=== PATIENT | male | born 1940 | race Caucasian/White ===

== ENCOUNTER 2020-03-12 08:00 | Outpatient (CLI) | payer MEDICARE, OTHER ==
[2020-03-12 18:41] LABS: BASOPHILS # (AUTO) 0.1 10^3/uL (0.0-0.1); BASOPHILS % (AUTO) 1.1 %; EOSINOPHILS # (AUTO) 0.2 10^3/uL (0.0-0.7); EOSINOPHILS % (AUTO) 3.1 %; HGB - HEMOGLOBIN 14.4 g/dL (14.0-18.0); LYMPHOCYTES # (AUTO) 1.2 10^3/uL (1.5-3.5); LYMPHOCYTES % (AUTO) 22.4 %; MEAN CORPUSCULAR HEMOGLOBIN 31.6 pg (27.0-31.0); MEAN CORPUSCULAR HGB CONC 32.4 g/dL (32.0-36.0); MEAN CORPUSCULAR VOLUME 97.8 fL (80.0-94.0); MEAN PLATELET VOLUME 9.7 fL (7.4-11.4); MONOCYTES # (AUTO) 0.4 10^3/uL (0.0-1.0); MONOCYTES % (AUTO) 6.9 %; NEUTROPHILS # (AUTO) 3.5 10^3/uL (1.5-6.6); NEUTROPHILS % (AUTO) 66.3 %; PLT - PLATELET COUNT 247 10^3/uL (130-450); RED BLOOD COUNT 4.55 10^6/uL (4.70-6.10); RED CELL DISTRIBUTION WIDTH 13.2 % (12.0-15.0); WHITE BLOOD COUNT 5.2 x10^3/uL (4.8-10.8)
[2020-03-12 18:55] LABS: ALBUMIN 4.2 g/dL (3.2-5.5); ALBUMIN/GLOBULIN RATIO 1.4 (1.0-2.2); ALKALINE PHOSPHATASE 59 IU/L (42-121); ALT ALANINE AMINOTRANSFERASE 19 IU/L (10-60); AST ASPARTATE AMINOTRANSFERASE 20 IU/L (10-42); BILIRUBIN,TOTAL 1.1 mg/dL (0.2-1.0); BUN - BLOOD UREA NITROGEN 23 mg/dL (6-20); CALCIUM 8.7 mg/dL (8.5-10.3); CARBON DIOXIDE - CO2 30 mmol/L (21-32); CHLORIDE 103 mmol/L (101-111); CHOL/HDL RATIO 3.9 (<5.0); CHOLESTEROL 178 mg/dL; CREATININE 0.9 mg/dL (0.6-1.2); GLUCOSE 98 mg/dL (70-100); HDL CHOLESTEROL 46 mg/dL; LDL CHOLESTEROL,CALCULATED 113 mg/dL; LDL/HDL RATIO 2.5 (<3.6); SODIUM 140 mmol/L (135-145); TOTAL PROTEIN 7.1 g/dL (6.7-8.2); VLDL CHOLESTEROL 19 mg/dL
== END 2020-03-12 23:59 | disposition home or self-care (01) ==
LOC: LAB.WCP 08:00
PROVIDERS: ATTEND Family Medicine
DX: Z00.00 Encounter for general adult medical examination without abnormal findings (principal); E78.5 Hyperlipidemia, unspecified
CPT/HCPCS: 36415; 80053; 80061; 83721; 84443; 85025

== ENCOUNTER 2021-08-28 18:07 | Outpatient (CLI) | payer MEDICARE, OTHER ==
--- NOTE | 2021-08-28 20:43 | XRAY Report ---
PROCEDURE: Chest 2 View X-Ray INDICATIONS: COUGH TECHNIQUE: 2 view(s) of the chest. COMPARISON: None. FINDINGS: Surgical changes and devices: None. Lungs and pleura: No pleural effusions or pneumothorax. Lungs are clear. Mediastinum: Mediastinal contours are normal. Heart size is normal. Bones and chest wall: No suspicious bony abnormalities. Soft tissues appear unremarkable. IMPRESSION: No acute cardiopulmonary process demonstrated radiographically. Reviewed by: Marc Benson MD on 08/28/2021 8:41 PM [facility] Approved by: Marc Benson MD on 08/28/2021 8:41 PM [facility] Station ID: [id number]
== END 2021-08-28 23:59 | disposition home or self-care (01) ==
LOC: DI.N 18:07
PROVIDERS: ATTEND Family Medicine
DX: R05.9 Cough, unspecified (principal)

== ENCOUNTER 2021-09-15 10:23 | Outpatient (CLI) | payer MEDICARE, OTHER ==
[2021-09-15 17:59] LABS: BASOPHILS % (AUTO) 0.5 %; EOSINOPHILS # (AUTO) 0.3 10^3/uL (0.0-0.7); EOSINOPHILS % (AUTO) 5.8 %; HCT - HEMATOCRIT 43.5 % (42.0-52.0); HGB - HEMOGLOBIN 14.8 g/dL (14.0-18.0); LYMPHOCYTES # (AUTO) 1.2 10^3/uL (1.5-3.5); LYMPHOCYTES % (AUTO) 22.3 %; MEAN CORPUSCULAR HEMOGLOBIN 32.5 pg (27.0-31.0); MEAN CORPUSCULAR VOLUME 95.6 fL (80.0-94.0); MEAN PLATELET VOLUME 9.7 fL (7.4-11.4); MONOCYTES # (AUTO) 0.4 10^3/uL (0.0-1.0); MONOCYTES % (AUTO) 6.9 %; NEUTROPHILS # (AUTO) 3.6 10^3/uL (1.5-6.6); NEUTROPHILS % (AUTO) 64.3 %; PLT - PLATELET COUNT 241 10^3/uL (130-450); RED BLOOD COUNT 4.55 10^6/uL (4.70-6.10); RED CELL DISTRIBUTION WIDTH 13.2 % (12.0-15.0); WHITE BLOOD COUNT 5.5 x10^3/uL (4.8-10.8)
[2021-09-15 18:51] LABS: THYROID STIMULATING HORMONE 7.85 uIU/mL (0.34-5.60)
[2021-09-15 18:57] LABS: PROLACTIN 11.25 ng/mL
[2021-09-15 18:59] LABS: ALBUMIN 4.5 g/dL (3.2-5.5); ALBUMIN/GLOBULIN RATIO 1.3 (1.0-2.2); ALKALINE PHOSPHATASE 55 IU/L (42-121); ALT ALANINE AMINOTRANSFERASE 22 IU/L (10-60); AST ASPARTATE AMINOTRANSFERASE 23 IU/L (10-42); BILIRUBIN,TOTAL 0.9 mg/dL (0.2-1.0); BUN - BLOOD UREA NITROGEN 20 mg/dL (6-20); CARBON DIOXIDE - CO2 28 mmol/L (21-32); CHLORIDE 102 mmol/L (101-111); CHOL/HDL RATIO 3.2 (<5.0); CHOLESTEROL 178 mg/dL; CREATININE 0.9 mg/dL (0.6-1.2); GFR - MDRD 81 (>89); GLUCOSE 93 mg/dL (70-100); HDL CHOLESTEROL 55 mg/dL; LDL CHOLESTEROL,CALCULATED 108 mg/dL; POTASSIUM 3.9 mmol/L (3.5-5.0); SODIUM 140 mmol/L (135-145); TRIGLYCERIDES 73 mg/dL; VLDL CHOLESTEROL 15 mg/dL
[2021-09-15 19:33] LABS: FREE T4 (FREE THYROXINE) 0.73 ng/dL (0.58-1.64)
== END 2021-09-15 23:59 | disposition home or self-care (01) ==
LOC: LAB.WCP 10:23
PROVIDERS: ATTEND Family Medicine
DX: Z00.00 Encounter for general adult medical examination without abnormal findings (principal); E78.5 Hyperlipidemia, unspecified; N62 Hypertrophy of breast
CPT/HCPCS: 36415; 80053; 80061; 83721; 84146; 84153; 84439; 84443; 85025

== ENCOUNTER 2021-09-21 08:00 | Outpatient (CLI) | payer MEDICARE, OTHER ==
[2021-09-21 21:18] LABS: FREE T3 3.48 pg/mL (2.5-3.9)
[2021-09-21 21:19] LABS: THYROID STIMULATING HORMONE 3.81 uIU/mL (0.34-5.60)
[2021-09-21 21:23] LABS: FREE T4 (FREE THYROXINE) 0.73 ng/dL (0.58-1.64)
== END 2021-09-21 23:59 ==
LOC: LAB.WCP 08:00
PROVIDERS: ATTEND Family Medicine
DX: E03.9 Hypothyroidism, unspecified (principal)
CPT/HCPCS: 36415; 84439; 84443; 84481

== ENCOUNTER 2022-03-14 16:17 | Outpatient (CLI) | payer MEDICARE, OTHER ==
--- NOTE | 2022-03-14 17:54 | XRAY Report ---
PROCEDURE: Knee 3 View RT INDICATIONS: RIGHT KNEE PAIN. TECHNIQUE: 3 views of the right knee(s) were acquired. COMPARISON: None. FINDINGS: There is no acute fracture. Alignment is normal. Joint spacing is maintained. Very mild tricompartmen t degenerative spurring. Small joint effusion. There is superior and inferior patellar enthesophytes. Additional corticated calcification along the inferior aspect of the patella may represent remote av ulsion fracture versus fragmented enthesophyte. Mild vascular calcifications. IMPRESSION: Findings suggestive of patellar tendinosis. Recommend clinical correlation. Small joint effusion. Mild tricompartment osteoarthritis. Superior and inferior patellar enthesophytes. Additional corticated calcification along the inferior pole of the patella may represent remote avulsion fracture versus fragmented enthesophyte. Reviewed by: Travon Covarrubias DO on 03/14/2022 4:52 PM [facility] Approved by: Travon Covarrubias DO on 03/14/2022 4:52 PM [facility] Station ID: [id number]
== END 2022-03-14 16:18 | disposition home or self-care (01) ==
LOC: DI 16:17
PROVIDERS: ATTEND Physician Assistant
DX: M17.11 Unilateral primary osteoarthritis, right knee (principal); M25.461 Effusion, right knee; M77.9 Enthesopathy, unspecified

== ENCOUNTER 2022-03-30 09:58 | Outpatient (CLI) | payer MEDICARE, OTHER ==
--- NOTE | 2022-03-30 15:21 | MRI Report ---
PROCEDURE: Knee RT W/O INDICATIONS: RIGHT KNEE PAIN TECHNIQUE: Noncontrast sagittal PD fast spin echo and T2 fast spin echo with fat saturation, sagittal 3-D spoile d GE with fat saturation; coronal T1 spin echo and PD fast spin echo with fat saturation, and axial P D fast spin echo with fat saturation through the knee. COMPARISON: Right knee radiographs 03/14/2022. FINDINGS: Image quality: Excellent. Anterior cruciate ligament: Intact. Posterior cruciate ligament: Intact. Medial collateral ligament: Focal fluid signal intensity and irregularity of the proximal to mid medi al collateral ligament is seen with surrounding soft tissue edema, consistent with a grade 2 sprain. Lateral collateral ligament: Intact. Medial meniscus: Irregularity of the inferior to the posterior horn of the medial meniscus most like ly represents shallow radial tearing. There may be a focal flap tear at the junction of the anterior horn and body of the medial meniscus extending to the medial femoral gutter. Lateral meniscus: Intrasubstance signal is seen in the body of the lateral meniscus without definite extension to articular surface, consistent with intrasubstance degeneration. Medial and lateral tendons: The semimembranosus tendon insertions appear intact. Visualized portion s of the pes anserinus tendons appear normal. The popliteus tendon appears intact. Iliotibial band appears normal. Anterior structures: A small enthesophyte is seen at the distal quadriceps tendon insertion. There is also enthesophyte formation at the inferior patella that is mildly edematous with tendinosis of the proximal patellar tendon. No evidence of subluxation. No femoral trochlear dysplasia or ventral troch lear prominence. No edema in the infrapatellar fat pad. Bones: No acute trabecular bone injury or fracture. Medial femorotibial cartilage: Mild to moderate partial-thickness cartilage thinning and irregularit y is seen in the weightbearing portion of the medial femorotibial compartment. Lateral femorotibial cartilage: There is full-thickness cartilage fissuring in the lateral tibial pl ateau with possible subchondral osteophyte formation. Patellofemoral cartilage: Full-thickness cartilage loss is seen at the median ridge of the patella s uperiorly with mild subchondral edema. Soft tissues: There is a medium-sized joint effusion. There is a small medial popliteal cyst. A sma ll amount of fluid is seen at the proximal tibiofibular articulation. The musculature surrounding the knee is normal in bulk. IMPRESSION: 1.Grade 2 sprain of the proximal ligament medial collateral ligament. 2.Shallow radial tearing of the posterior horn of the medial meniscus. Suspected additional superiorl y displaced flap tear at the junction of the posterior horn and body of the medial meniscus extending to the medial femoral gutter. 3.Mild intrasubstance degeneration in the lateral meniscus without a discrete tear. 4.Full-thickness cartilage loss in the anterior compartment with subchondral edema. There is full-thi ckness cartilage fissuring in the lateral compartment and grade 2-3 chondral malacia in the medial co mpartment. 5.Moderate proximal patellar tendinosis. A mildly edematous enthesophyte is seen at the patellar tend on origin. 6.Moderate joint effusion. Small medial popliteal cyst Reviewed by: Tray Kowalski MD on 03/30/2022 3:20 PM PDT Approved by: Tray Kowalski MD on 03/30/2022 3:20 PM PDT Station ID: [id number]
== END 2022-03-30 09:59 | disposition home or self-care (01) ==
LOC: DI 09:58
PROVIDERS: ATTEND Registered Nurse
DX: S83.411A Sprain of medial collateral ligament of right knee, initial encounter (principal); S83.241A Other tear of medial meniscus, current injury, right knee, initial encounter; M23.361 Other meniscus derangements, other lateral meniscus, right knee; M94.261 Chondromalacia, right knee; M25.461 Effusion, right knee; M76.891 Other specified enthesopathies of right lower limb, excluding foot; R60.0 Localized edema

== ENCOUNTER 2022-08-24 16:16 | Outpatient (CLI) | payer MEDICARE, OTHER ==
--- NOTE | 2022-08-24 16:21 | XRAY Report ---
PROCEDURE: Knee 4 View RT INDICATIONS: RIGHT KNEE PAIN TECHNIQUE: 4 views of the right knee(s) were acquired. COMPARISON: None. FINDINGS: Moderate tricompartmental osteoarthritis characterized by joint space narrowing and small marginal os teophytes. No suspicious lytic or blastic osseous lesion. No acute finding. Small suprapatellar knee joint effusion. IMPRESSION: Moderate tricompartmental knee osteoarthritis. Reviewed by: Marc Benson MD on 08/24/2022 3:20 PM [place] Approved by: Marc Benson MD on 08/24/2022 3:20 PM [place] Station ID: [id number]
== END 2022-08-24 16:17 | disposition home or self-care (01) ==
LOC: DI.WOS 16:16
PROVIDERS: ATTEND Physician Assistant Surgical
DX: M17.11 Unilateral primary osteoarthritis, right knee (principal)

== ENCOUNTER 2023-05-06 08:00 | Outpatient (CLI) | payer MEDICARE, OTHER ==
[2023-05-06 18:06] LABS: CALCIUM 9.2 mg/dL (8.5-10.3); CREATININE 0.9 mg/dL (0.6-1.3); POTASSIUM 3.9 mmol/L (3.5-4.5)
== END 2023-05-06 23:59 | disposition home or self-care (01) ==
LOC: LAB.N 08:00
PROVIDERS: ATTEND Physician Assistant Medical
DX: U07.1 COVID-19 (principal)
CPT/HCPCS: 36415; 80048

== ENCOUNTER 2024-04-13 09:21 | Outpatient (CLI) | payer MEDICARE, OTHER | END 2024-04-13 23:59 | disposition critical access hospital (66) | LOC: EMS 09:21 | DX: R40.20 Unspecified coma (principal) | CPT/HCPCS: A0425; A0427 ==

== ENCOUNTER 2024-04-13 09:31 | Emergency (ER) | payer MEDICARE, OTHER ==
[2024-04-13] MEDS: SODIUM CHLORIDE 0.9% 1,000 ML IV STA (09:30)
[2024-04-13] MEDS ORDERED: PROPOFOL 1000 MG/100 ML 1,000 MG/100 ML BOTTLE IV ONE ×2 (09:35→22:18)
[2024-04-13] MEDS ORDERED: ETOMIDATE 40 MG/20 ML VIAL IVP ONE (09:40)
[2024-04-13] MEDS ORDERED: ROCURONIUM 50 MG/5 ML VIAL ONE (09:40)
[2024-04-13] MEDS: ETOMIDATE 40 MG/20 ML VIAL IVP STA (09:42)
[2024-04-13] MEDS: ROCURONIUM 50 MG/5 ML VIAL IVP STA (09:42)
[2024-04-13] MEDS: PROPOFOL 1000 MG/100 ML 1,000 MG/100 ML BOTTLE IV STA ×2 (09:46→22:25)
[2024-04-13 09:51] LABS: BASOPHILS % (AUTO) 0.5 %; EOSINOPHILS # (AUTO) 0.2 10^3/uL (0.0-0.7); EOSINOPHILS % (AUTO) 4.2 %; HCT - HEMATOCRIT 41.9 % (42.0-52.0); HGB - HEMOGLOBIN 13.9 g/dL (14.0-18.0); LYMPHOCYTES # (AUTO) 1.5 10^3/uL (1.5-3.5); LYMPHOCYTES % (AUTO) 27.6 %; MEAN CORPUSCULAR HEMOGLOBIN 31.5 pg (27.0-31.0); MEAN CORPUSCULAR HGB CONC 33.2 g/dL (32.0-36.0); MONOCYTES # (AUTO) 0.4 10^3/uL (0.0-1.0); MONOCYTES % (AUTO) 6.6 %; NEUTROPHILS # (AUTO) 3.3 10^3/uL (1.5-6.6); NEUTROPHILS % (AUTO) 60.9 %; PLT - PLATELET COUNT 208 10^3/uL (130-450); RED BLOOD COUNT 4.41 10^6/uL (4.70-6.10); RED CELL DISTRIBUTION WIDTH 13.1 % (12.0-15.0); WHITE BLOOD COUNT 5.5 x10^3/uL (4.8-10.8)
[2024-04-13 09:52] LABS: VBG BASE EXCESS -3.5 mmol/L (-2 - +2); VBG HCO3 22.9 mmol/L (23-28); VBG OXYGEN SATURATION 75.5 % (60-80); VBG PH 7.314 (7.31-7.41); VBG TOTAL CO2 24.3 mmol/L (24-29)
[2024-04-13 09:53] LABS: CARBOXYHEMOGLOBIN VENOUS 0.5 % (0-1.5); HEMOGLOBIN TOTAL, VENOUS WB 15.1 g/dL (12.0-18.0); METHEMOGLOBIN VENOUS 0.8 % (0-1.5)
[2024-04-13 10:02] LABS: INR 1.1 (0.8-1.2); PT - PROTHROMBIN TIME 12.1 secs (9.9-12.6)
--- NOTE | 2024-04-13 10:12 | ED Physician Documentation ---
History of Present Illness - Stated complaint Stated Complaint: ROSC - Chief complaint Chief Complaint: Cardiac - History obtained from History obtained from: EMS - Additonal information Additional information: This is a reportedly healthy 83-year-old gentleman who comes from home by EMS. Reportedly was out in the garage working with chemicals yesterday, were not sure what kind per se. It was noted that he had left leg weakness yesterday and this morning was slurring his speech. EMS was called out for strokelike symptoms and on arrival he became completely obtunded with a GCS of 3. They put in an IO and he briefly became responsive but confused. Then he became obtunded again. Narcan was trialed without effect. He was reportedly a difficult airway prehospital and comes in with a Koffi tube in place and an IO in the leg. is not present on initial arrival but I understand she is coming to the hospital from EMS. arrived and took an independent history from her at approximately 10:40 AM. She reports to me that he is generally very healthy. He was on statins for some time but has not been taking them for a few years. No major surgeries other than a rotator cuff issue in the past. He was working with [employer] and cutting things down in the basement yesterday. She noted he could not use his left leg last night but it was not painful. This morning he became progressively altered and then slumped down and 911 was called. She says he does not smoke at all and only occasionally drinks alcohol. Review of Systems Unable to obtain: Intubated PD PAST MEDICAL HISTORY - Past Medical History Past Medical History: No - Past Surgical History Past Surgical History: No - Present Medications Home Medications: Ambulatory Orders Medication Instructions Recorded Confirmed No Known Home Medications 04/13/24 04/13/24 - Allergies Allergies/Adverse Reactions: Allergies Allergy/AdvReac Type Severity Reaction Status Date / Time No Known Drug Allergies Allergy Verified 04/13/24 09:39 - Social History Does the pt smoke?: No Smoking Status: Never smoker Does the pt drink ETOH?: No Does the pt have substance abuse?: No - Immunizations Immunizations are current?: Yes - POLST Patient has POLST: No PD ED PE NORMAL - Vitals Vital signs reviewed: Yes - General General: Other (GCS 3 with [address] tube in place) - HEENT HEENT: Other (Small pupils) - Neck Neck: No bony TTP - Cardiac Cardiac: RRR, No murmur - Respiratory Respiratory: Other (Rhonchorous bilateral breath sounds with bagging) - Abdomen Abdomen: Non tender - Extremities Extremities: No edema - Neuro Eye Opening: None Motor: None Verbal: None GCS Score: 3 Results - Vitals Vitals: Vital Signs - 24 hr 04/13/24 04/13/24 04/13/24 09:30 09:34 09:35 Temperature 35.7 C L 35.7 C L Heart Rate 87 84 86 Respiratory 21 25 H 12 Rate Blood Pressure 159/93 H 159/93 H 161/94 H Blood Pressure [Right] O2 Saturation 100 100 100 If not protocol 15 15 : Oxygen Flow, liters/minute 04/13/24 04/13/24 04/13/24 09:40 09:45 09:50 Temperature Heart Rate 104 H 116 H 85 Respiratory 27 H 20 18 Rate Blood Pressure 162/93 H 205/140 H 149/81 H Blood Pressure [Right] O2 Saturation 100 100 100 If not protocol 15 15 : Oxygen Flow, liters/minute 04/13/24 04/13/24 04/13/24 09:55 09:58 10:00 Temperature Heart Rate 87 84 80 Respiratory 16 16 Rate Blood Pressure 141/84 H 140/81 H Blood Pressure [Right] O2 Saturation 100 100 If not protocol : Oxygen Flow, liters/minute 04/13/24 04/13/24 04/13/24 10:05 10:10 10:15 Temperature Heart Rate 84 80 83 Respiratory 19 18 19 Rate Blood Pressure 160/84 H 144/76 H 150/77 H Blood Pressure [Right] O2 Saturation 100 100 100 If not protocol : Oxygen Flow, liters/minute 04/13/24 04/13/24 04/13/24 10:20 10:25 10:30 Temperature Heart Rate 82 79 78 Respiratory 18 19 19 Rate Blood Pressure 148/79 H 144/75 H 146/83 H Blood Pressure [Right] O2 Saturation 100 100 100 If not protocol : Oxygen Flow, liters/minute 04/13/24 04/13/24 04/13/24 10:34 10:45 11:00 Temperature Heart Rate 88 71 87 Respiratory 18 23 Rate Blood Pressure 150/82 H 149/89 H Blood Pressure [Right] O2 Saturation 97 98 If not protocol : Oxygen Flow, liters/minute 04/13/24 04/13/24 04/13/24 11:15 11:22 11:30 Temperature Heart Rate 77 88 74 Respiratory 18 18 Rate Blood Pressure 141/70 H 145/75 H Blood Pressure 159/93 H [Right] O2 Saturation 98 98 If not protocol : Oxygen Flow, liters/minute 04/13/24 04/13/24 04/13/24 11:45 12:00 12:15 Temperature Heart Rate 75 76 73 Respiratory 19 19 19 Rate Blood Pressure 135/72 H 136/76 H 131/75 H Blood Pressure [Right] O2 Saturation 98 98 99 If not protocol : Oxygen Flow, liters/minute 04/13/24 04/13/24 04/13/24 12:30 12:45 13:00 Temperature 36 C L Heart Rate 64 66 54 L Respiratory 22 20 18 Rate Blood Pressure 152/72 H 125/63 109/60 Blood Pressure [Right] O2 Saturation 99 99 99 If not protocol : Oxygen Flow, liters/minute 04/13/24 04/13/24 04/13/24 13:15 13:26 13:30 Temperature 36.3 C L Heart Rate 81 54 L 68 Respiratory 17 22 Rate Blood Pressure 151/75 H 125/64 Blood Pressure [Right] O2 Saturation 100 100 If not protocol : Oxygen Flow, liters/minute 04/13/24 04/13/24 04/13/24 13:45 14:00 14:15 Temperature Heart Rate 67 65 66 Respiratory 17 17 18 Rate Blood Pressure 127/59 L 122/61 122/60 Blood Pressure [Right] O2 Saturation 100 100 98 If not protocol : Oxygen Flow, liters/minute 04/13/24 04/13/24 04/13/24 14:30 14:45 15:00 Temperature Heart Rate 65 61 63 Respiratory 18 20 19 Rate Blood Pressure 117/60 114/56 L 116/58 L Blood Pressure [Right] O2 Saturation 98 99 98 If not protocol : Oxygen Flow, liters/minute 04/13/24 04/13/24 15:15 15:30 Temperature Heart Rate 86 70 Respiratory 18 17 Rate Blood Pressure 132/63 H 120/53 L Blood Pressure [Right] O2 Saturation 100 98 If not protocol : Oxygen Flow, liters/minute Oxygen O2 Source Mechanical ventilator Oxygen Flow Rate 15 - EKG (time done) 1122 EKG releavant findings:: EKG personally interpreted by author of this note. Relevant findings are: Rate: Rate (enter#) (75) Rhythm: NSR [place]: Normal Intervals: Normal ND QRS: Normal Ischemia: Normal ST segments - Labs Labs: Laboratory Tests 04/13/24 04/13/24 04/13/24 09:45 09:45 09:45 WBC 5.5 RBC 4.41 L Hgb 13.9 L Hct 41.9 L MCV 95.0 H MCH 31.5 H MCHC 33.2 RDW 13.1 Plt Count 208 MPV 9.0 Neut # (Auto) 3.3 Lymph # (Auto) 1.5 Dale # (Auto) 0.4 Eos # (Auto) 0.2 Baso # (Auto) 0.0 Absolute Nucleated RBC 0.00 Nucleated RBC % 0.0 PT 12.1 INR 1.1 Bld Gas Analysis Time Sample Site ABG pH ABG pCO2 ABG pO2 ABG HCO3 ABG Total CO2 ABG O2 Saturation ABG Base Excess Romel Test VBG pH VBG pCO2 VBG pO2 VBG HCO3 VBG Total CO2 VBG O2 Saturation VBG Base Excess VBG Total Hgb VBG Oxyhemoglobin VBG Carboxyhemoglobin VBG Methemoglobin Respiration Rate O2 Delivery Device Vent Mode FiO2 Tidal Volume PEEP Sodium 140 Potassium 3.8 Chloride 108 Carbon Dioxide 27 Anion Gap 5.0 L BUN 16 Creatinine 0.9 Estimated GFR (MDRD) 81 L Glucose 124 H Lactic Acid Calcium 8.8 Magnesium 2.0 Total Bilirubin 0.6 AST 21 ALT 15 Alkaline Phosphatase 67 Total Creatine Kinase 112 Troponin I High Sens Total Protein 7.0 Albumin 4.3 Globulin 2.7 Albumin/Globulin Ratio 1.6 Urine Color Urine Clarity Urine pH Ur Specific [place] Urine Protein Urine Glucose (UA) Urine Ketones Urine Occult Blood Urine Nitrite Urine Bilirubin Urine Urobilinogen Ur Leukocyte Esterase Urine RBC Urine WBC Ur Squamous Epith Cells Urine Bacteria Ur Microscopic Review Urine Culture Comments Nasal Adenovirus (PCR) Nasal B. parapertussis DNA (PCR) Nasal Coronavir 229E PCR Nasal Coronavir HKU1 PCR Nasal Coronavir NL63 PCR Nasal Coronavir OC43 PCR Nasal Enterovir/Rhinovir PCR Nasal Influenza B PCR Nasal Influenza A PCR Nasal Parainfluen 1 PCR Nasal Parainfluen 2 PCR Nasal Parainfluen 3 PCR Nasal Parainfluen 4 PCR Nasal RSV (PCR) Nasal B.pertussis DNA PCR Nasal C.pneumoniae (PCR) [place] Human Metapneumo PCR Nasal M.pneumoniae (PCR) Nasal SARS-CoV-2 (PCR) Urine Opiates Screen Ur Buprenorphine Scrn Ur Oxycodone Screen Urine Methadone Screen Ur Barbiturates Screen Ur Tricyclics Screen Ur Phencyclidine Scrn Ur Amphetamine Screen U Methamphetamines Scrn U Benzodiazepines Scrn Urine Cocaine Screen U Cannabinoids Screen Ur Drug Screen Comment 04/13/24 04/13/24 04/13/24 09:45 09:45 09:45 WBC RBC Hgb Hct MCV MCH MCHC RDW Plt Count MPV Neut # (Auto) Lymph # (Auto) Dale # (Auto) Eos # (Auto) Baso # (Auto) Absolute Nucleated RBC Nucleated RBC % PT INR Bld Gas Analysis Time Sample Site ABG pH ABG pCO2 ABG pO2 ABG HCO3 ABG Total CO2 ABG O2 Saturation ABG Base Excess Romel Test VBG pH 7.314 VBG pCO2 46.0 VBG pO2 41.0 VBG HCO3 22.9 L VBG Total CO2 24.3 VBG O2 Saturation 75.5 VBG Base Excess -3.5 L VBG Total Hgb VBG Oxyhemoglobin VBG Carboxyhemoglobin VBG Methemoglobin Respiration Rate O2 Delivery Device Vent Mode FiO2 Tidal Volume PEEP Sodium Potassium Chloride Carbon Dioxide Anion Gap BUN Creatinine Estimated GFR (MDRD) Glucose Lactic Acid 1.1 Calcium Magnesium Total Bilirubin AST ALT Alkaline Phosphatase Total Creatine Kinase Troponin I High Sens 4.2 Total Protein Albumin Globulin Albumin/Globulin Ratio Urine Color Urine Clarity Urine pH Ur Specific [place] Urine Protein Urine Glucose (UA) Urine Ketones Urine Occult Blood Urine Nitrite Urine Bilirubin Urine Urobilinogen Ur Leukocyte Esterase Urine RBC Urine WBC Ur Squamous Epith Cells Urine Bacteria Ur Microscopic Review Urine Culture Comments Nasal Adenovirus (PCR) Nasal B. parapertussis DNA (PCR) Nasal Coronavir 229E PCR Nasal Coronavir HKU1 PCR Nasal Coronavir NL63 PCR Nasal Coronavir OC43 PCR Nasal Enterovir/Rhinovir PCR Nasal Influenza B PCR Nasal Influenza A PCR Nasal Parainfluen 1 PCR Nasal Parainfluen 2 PCR Nasal Parainfluen 3 PCR Nasal Parainfluen 4 PCR Nasal RSV (PCR) Nasal B.pertussis DNA PCR Nasal C.pneumoniae (PCR) [place] Human Metapneumo PCR Nasal M.pneumoniae (PCR) Nasal SARS-CoV-2 (PCR) Urine Opiates Screen Ur Buprenorphine Scrn Ur Oxycodone Screen Urine Methadone Screen Ur Barbiturates Screen Ur Tricyclics Screen Ur Phencyclidine Scrn Ur Amphetamine Screen U Methamphetamines Scrn U Benzodiazepines Scrn Urine Cocaine Screen U Cannabinoids Screen Ur Drug Screen Comment 04/13/24 04/13/24 04/13/24 09:45 10:20 10:21 WBC RBC Hgb Hct MCV MCH MCHC RDW Plt Count MPV Neut # (Auto) Lymph # (Auto) Dale # (Auto) Eos # (Auto) Baso # (Auto) Absolute Nucleated RBC Nucleated RBC % PT INR Bld Gas Analysis Time 1030 Sample Site RIGHT RADIAL ABG pH 7.38 ABG pCO2 36 ABG pO2 205 H* ABG HCO3 21.1 L ABG Total CO2 22.2 ABG O2 Saturation 99 H ABG Base Excess -3.4 L Romel Test POSITIVE VBG pH VBG pCO2 VBG pO2 VBG HCO3 VBG Total CO2 VBG O2 Saturation VBG Base Excess VBG Total Hgb 15.1 VBG Oxyhemoglobin 75 L VBG Carboxyhemoglobin 0.5 VBG Methemoglobin 0.8 Respiration Rate 16 O2 Delivery Device VENTILATOR Vent Mode ASSIST/CONTROL FiO2 80.00 Tidal Volume 400 PEEP 5 Sodium Potassium Chloride Carbon Dioxide Anion Gap BUN Creatinine Estimated GFR (MDRD) Glucose Lactic Acid Calcium Magnesium Total Bilirubin AST ALT Alkaline Phosphatase Total Creatine Kinase Troponin I High Sens Total Protein Albumin Globulin Albumin/Globulin Ratio Urine Color YELLOW Urine Clarity CLEAR Urine pH 6.5 Ur Specific [place] 1.025 Urine Protein NEGATIVE Urine Glucose (UA) NEGATIVE Urine Ketones NEGATIVE Urine Occult Blood MODERATE H Urine Nitrite NEGATIVE Urine Bilirubin NEGATIVE Urine Urobilinogen 0.2 (NORMAL) Ur Leukocyte Esterase NEGATIVE Urine RBC 11-25 H Urine WBC 0-3 Ur Squamous Epith Cells RARE Squamous Urine Bacteria Rare Ur Microscopic Review INDICATED Urine Culture Comments NOT INDICATED Nasal Adenovirus (PCR) Nasal B. parapertussis DNA (PCR) Nasal Coronavir 229E PCR Nasal Coronavir HKU1 PCR Nasal Coronavir NL63 PCR Nasal Coronavir OC43 PCR Nasal Enterovir/Rhinovir PCR Nasal Influenza B PCR Nasal Influenza A PCR Nasal Parainfluen 1 PCR Nasal Parainfluen 2 PCR Nasal Parainfluen 3 PCR Nasal Parainfluen 4 PCR Nasal RSV (PCR) Nasal B.pertussis DNA PCR Nasal C.pneumoniae (PCR) [place] Human Metapneumo PCR Nasal M.pneumoniae (PCR) Nasal SARS-CoV-2 (PCR) Urine Opiates Screen NEGATIVE Ur Buprenorphine Scrn NEGATIVE Ur Oxycodone Screen NEGATIVE Urine Methadone Screen NEGATIVE Ur Barbiturates Screen NEGATIVE Ur Tricyclics Screen NEGATIVE Ur Phencyclidine Scrn NEGATIVE Ur Amphetamine Screen NEGATIVE U Methamphetamines Scrn NEGATIVE U Benzodiazepines Scrn NEGATIVE Urine Cocaine Screen NEGATIVE U Cannabinoids Screen NEGATIVE Ur Drug Screen Comment CUTOFF CONC BELOW: 04/13/24 10:33 WBC RBC Hgb Hct MCV MCH MCHC RDW Plt Count MPV Neut # (Auto) Lymph # (Auto) Dale # (Auto) Eos # (Auto) Baso # (Auto) Absolute Nucleated RBC Nucleated RBC % PT INR Bld Gas Analysis Time Sample Site ABG pH ABG pCO2 ABG pO2 ABG HCO3 ABG Total CO2 ABG O2 Saturation ABG Base Excess Romel Test VBG pH VBG pCO2 VBG pO2 VBG HCO3 VBG Total CO2 VBG O2 Saturation VBG Base Excess VBG Total Hgb VBG Oxyhemoglobin VBG Carboxyhemoglobin VBG Methemoglobin Respiration Rate O2 Delivery Device Vent Mode FiO2 Tidal Volume PEEP Sodium Potassium Chloride Carbon Dioxide Anion Gap BUN Creatinine Estimated GFR (MDRD) Glucose Lactic Acid Calcium Magnesium Total Bilirubin AST ALT Alkaline Phosphatase Total Creatine Kinase Troponin I High Sens Total Protein Albumin Globulin Albumin/Globulin Ratio Urine Color Urine Clarity Urine pH Ur Specific [place] Urine Protein Urine Glucose (UA) Urine Ketones Urine Occult Blood Urine Nitrite Urine Bilirubin Urine Urobilinogen Ur Leukocyte Esterase Urine RBC Urine WBC Ur Squamous Epith Cells Urine Bacteria Ur Microscopic Review Urine Culture Comments Nasal Adenovirus (PCR) NOT DETECTED Nasal B. parapertussis DNA (PCR) NOT DETECTED Nasal Coronavir 229E PCR NOT DETECTED Nasal Coronavir HKU1 PCR NOT DETECTED Nasal Coronavir NL63 PCR NOT DETECTED Nasal Coronavir OC43 PCR NOT DETECTED Nasal Enterovir/Rhinovir PCR NOT DETECTED Nasal Influenza B PCR NOT DETECTED Nasal Influenza A PCR NOT DETECTED Nasal Parainfluen 1 PCR NOT DETECTED Nasal Parainfluen 2 PCR NOT DETECTED Nasal Parainfluen 3 PCR NOT DETECTED Nasal Parainfluen 4 PCR NOT DETECTED Nasal RSV (PCR) NOT DETECTED Nasal B.pertussis DNA PCR NOT DETECTED Nasal C.pneumoniae (PCR) NOT DETECTED [place] Human Metapneumo PCR NOT DETECTED Nasal M.pneumoniae (PCR) NOT DETECTED Nasal SARS-CoV-2 (PCR) NOT DETECTED Urine Opiates Screen Ur Buprenorphine Scrn Ur Oxycodone Screen Urine Methadone Screen Ur Barbiturates Screen Ur Tricyclics Screen Ur Phencyclidine Scrn Ur Amphetamine Screen U Methamphetamines Scrn U Benzodiazepines Scrn Urine Cocaine Screen U Cannabinoids Screen Ur Drug Screen Comment - Rads (name of study) CT of the head demonstrating possible tiny hemorrhage in the right send ventricular horn measuring 3 mm Relevant Findings:: Final report received, EMP independent interpretation of test CT angiography of the head and neck was negative Relevant Findings:: Final report received, EMP independent interpretation of test CT chest demonstrating bilateral lower lobe infiltrates/atelectasis, NG tube needs replacement, cardiomegaly Relevant Findings:: Final report received, EMP independent interpretation of test CT abdomen pelvis showing cyst or hemangioma in the liver and Dow in the bladder with enlarged prostate Relevant Findings:: Final report received, EMP independent interpretation of t est Procedures - Intubation - Major Provider: Emergency physician Medications: Etomidate (20mg), Rocuronium (50mg) Blade: Glidescope Tube: Size-enter number (8.0), Cuffed Route: Oral Confirmation: Direct visualization, Bilateral breath sounds, No abdominal breath sound, End tidal CO2, Pulse ox, Chest xray Complications: No compications - Central Line - Major Central Line Preparation: Unable to obtain consent, Time out completed, Ultrasound used, Sterile prep and drape Central line location: Right IJ Central line type: Triple lumen Central line aftercare: Chlorhexidine disc placed, Secured, Placement confirmed, No pneumothorax, No complications, Bundle checklist complete, Pt tolerated well PD Medical Decision Making - ED course ED course: 83-year-old gentleman presents after a significant progressive episode of altered mental status with strokelike symptoms and now respiratory failure. On initial evaluation he was GCS 3 and being bagged through Koffi tube. He was reintubated without issue with a standard endotracheal tube and a central line was placed. Chest for line placement shows appropriate position of the central line, recommendation for endotracheal tube to be withdrawn by 1 cm and advancement of the NG tube. I did ask RT to withdraw the endotracheal tube by 1 cm. Subsequently the NG tube was advanced and on CT imaging for me looks like it is curled in the oropharynx. The nurse will replace it. The RN does tell me that on 25 mcg/kg/min of propofol he was starting to get agitated moving all 4 extremities. She had increased the propofol but this is reassuring regarding his neurostatus. Asked her actually to decrease the propofol again so I can reexamine him on the lower dose. As I lowered the sedation, he did become somewhat more responsive opening his eyes to verbal stimulus but still not following commands. I discussed the case with our hospitalist, Dr. Cantrell at a few minutes after 1 PM. She would like to call neurology at the [facility] pending the repeat CT scan which should be done around [address] "walker scan" was notable for incidental findings but the main thing apropos to the current presenting complaint was a possible 3 mm focus of hemorrhage in the right temporal horn with a radiologist recommending a repeat scan after a few hours. He did have bilateral lower lobe infiltrates so the presumption is he probably aspirated at some point. CBC showing mild macrocytic anemia. INR normal. Arterial blood gas showing hyperoxygenation which was lowered after this was obtained. CMP, lactate, troponin, [employer] respiratory panel and toxicology testing was all normal/negative. We did have some significant trouble getting appropriate placement of NG tube. After the nurse tried twice and ended up not reaching the stomach, I personally placed the NG tube and subsequent third x-ray showed appropriate placement. Care to Dr Altamirano at 3pm pending [facility] in ~1hr. - Critical Care Time(min): 60 Time Includes: Direct patient care, Review records, Reassess patient, Document care, Coordinate care, Medical consult, Family consult for tx dec Data interpretation: Labs, Pulse ox, ABG, CXR Procedures included in critical care time: Peripheral IV Procedures excluded from critical care time: Central IV, Intubation, EKG Departure - Departure Clinical Impression: Coma Qualifiers: Coma depth: Thiago coma 3-8 Coma timing: in the field (EMT or ambulance) Qualified Code(s): R40.2431 - Thiago coma scale score 3-8, in the field [EMT or ambulance] Respiratory failure Qualifiers: Chronicity: acute Respiratory failure complication: unspecified whether with hypoxia or hypercapnia Qualified Code(s): J96.00 - Acute respiratory failure, unspecified whether with hypoxia or hypercapnia Condition: Critical Forms: PCP List
[2024-04-13 10:13] LABS: ALBUMIN 4.3 g/dL (3.2-5.5); ALBUMIN/GLOBULIN RATIO 1.6 (1.0-2.2); BILIRUBIN,TOTAL 0.6 mg/dL (0.2-1.0); CALCIUM 8.8 mg/dL (8.5-10.3); CREATININE 0.9 mg/dL (0.6-1.3); POTASSIUM 3.8 mmol/L (3.5-4.5)
[2024-04-13] MEDS ORDERED: iohexoL-300 100 ML VIAL ONE (10:21)
--- NOTE | 2024-04-13 10:35 | XRAY Report ---
PROCEDURE: Chest for Line Placement INDICATIONS: ETT and CVC TECHNIQUE: One view of the chest was acquired. COMPARISON: 08/28/2021. FINDINGS: Surgical changes and devices: ET tube tip is 1 cm above the vanessa. A right internal jugular central venous catheter tip is in the region of SVC. NG tube tip is in lower esophagus/GE junction. Lungs and pleura: No pleural effusions or pneumothorax. Lungs are clear. Mediastinum: Mediastinal contours appear normal. Heart size is normal. Bones and chest wall: No suspicious bony lesions. Overlying soft tissues appear unremarkable. IMPRESSION: ET tube tip is approximately 1 cm above the vanessa and can be pulled back by 1 cm. NG tube tip is at the level of GE junction and can be advanced by 10 cm. Right internal jugular central venous catheter tip is in SVC. No focal infiltrate, pleural effusion or pneumothorax. Reviewed by: Lewis Lovell MD on 04/13/2024 10:33 AM PDT Approved by: Lewis Lovell MD on 04/13/2024 10:33 AM PDT Station ID: [id number]
[2024-04-13 10:41] LABS: ABG HCO3 21.1 mmol/L (22.0-26.0); ABG PCO2 36 mmHg (34-45); ABG PH 7.38 (7.35-7.45)
[2024-04-13 10:42] LABS: ABG BASE EXCESS -3.4 mmol/L (-2.0-3.0); ABG OXYGEN SATURATION 99 % (94-98); ABG TCO2 22.2 MMOL/L (21.0-29.0); ALLEN TEST POSITIVE
[2024-04-13 10:43] LABS: BILIRUBIN,URINE NEGATIVE (NEGATIVE); GLUCOSE, URINE (UA) NEGATIVE (NEGATIVE); KETONES,URINE (UA) NEGATIVE (NEGATIVE); LEUKOCYTE ESTERASE, URINE NEGATIVE (NEGATIVE); NITRITE,URINE NEGATIVE (NEGATIVE); OCCULT BLOOD,URINE MODERATE (NEGATIVE); PH,URINE 6.5 PH (5.0-7.5); PROTEIN,URINE NEGATIVE (NEGATIVE); UROBILINOGEN,URINE 0.2 (NORMAL) E.U./dL (NORMAL)
[2024-04-13 10:43] LABS: ABG MODE OF VENTILATION ASSIST/CONTROL; ABG RESPIRATORY RATE 16 b/min
[2024-04-13 10:45] LABS: CLARITY,URINE CLEAR (CLEAR)
[2024-04-13 10:45] LABS: ABG PO2 205 mmHg (80-100)
[2024-04-13 10:59] LABS: BACTERIA,URINE Rare /HPF (None Seen); SQUAMOUS EPITHELIAL CELL,UR RARE Squamous (<= Few); WBC,URINE 0-3 /HPF (0-3)
[2024-04-13 11:00] LABS: AMPHETAMINE SCREEN,URINE NEGATIVE (NEGATIVE); BARBITURATE SCREEN,UR NEGATIVE (NEGATIVE); BENZODIAZEPINES SCREEN, URINE NEGATIVE (NEGATIVE); BUPRENORPHINE SCREEN, URINE NEGATIVE (NEGATIVE); COCAINE SCREEN URINE NEGATIVE (NEGATIVE); METHADONE SCREEN, URINE NEGATIVE (NEGATIVE); METHAMPHETAMINES SCREEN, URINE NEGATIVE (NEGATIVE); OPIATE SCREEN, URINE NEGATIVE (NEGATIVE); OXYCODONE SCREEN, URINE NEGATIVE (NEGATIVE); THC CANNABINOID SCREEN, URINE NEGATIVE (NEGATIVE); TRICYCLIC ANTIDEPRESSANT,URINE NEGATIVE (NEGATIVE)
--- NOTE | 2024-04-13 11:46 | CT Report ---
PROCEDURE: Head WO INDICATIONS: ams cva sx TECHNIQUE: Noncontrast 4.5 mm thick angled axial sections acquired from the foramen magnum to the vertex. For r adiation dose reduction, the following was used: automated exposure control, adjustment of mA and/or kV according to patient size. COMPARISON: CTA head 04/13/2024. CONTRAST: None COMPARISON: Head and neck 04/13/2024. FINDINGS: Image quality: Diagnostic. HEAD CT: The ventricular system and cortical sulci demonstrate atrophy, consistent for patient's stated age. There are areas of hypodensity in the periventricular and subcortical white matter. There is no acut e intra or extra-axial fluid collection. There is a 3 to 4 mm focus of hyperdensity adjacent to the p osterior horn of the right lateral ventricle on series 2 image 22. No priors are available for compar bolivar. Brainstem is unremarkable. Globes are symmetrical. Sinuses are aerated. Osseous structures are intact. HEAD CT ANGIOGRAPHY: Anterior circulation: Intracranial internal carotid arteries are normal in size and flow. The flow within the paired anterior cerebral arteries is normal and symmetric. The flow within the middle cer ebral arteries is normal and symmetric. The anterior communicating artery is seen. No aneurysms are seen. Posterior circulation: Visualized portions of the vertebral arteries demonstrate normal caliber, and join to form a normal appearing basilar artery. Flow within the posterior cerebral arteries is norm al and symmetric. No aneurysms are seen. NECK CT ANGIOGRAPHY: Carotid system: The great vessels demonstrate a conventional anatomy as they arise from the aortic a rch. The origins of the common carotid arteries appear patent. The common carotid arteries demonstr ate normal caliber and courses. The bifurcation regions are both widely patent. The internal caroti d arteries demonstrate normal calibers and courses. Posterior circulation: The origins of the vertebral arteries both appear widely patent. The more grimaldo perior extracranial portions of both vertebral arteries also demonstrate normal courses and calibers. They join to form a normal appearing basilar artery. Soft tissues: Visualized neck soft tissues demonstrate no suspicious abnormalities. Bones: No suspicious bony lesions. Visualized cervical spine appears normally aligned. IMPRESSION: Approximately 3 mm focus of relative increased density adjacent to the right temporal horn as above. This is somewhat nonspecific in appearance. While this is suspected to be related to volume averaging , small focus of superimposed hemorrhage cannot be definitively excluded. Recommend 6 hour interval i maging follow-up, given no priors were available for comparison. The estimate of stenosis included in the report of the imaging study was calculated using the NASCET method Reviewed by: Odilia Chou MD on 04/13/2024 11:45 AM PDT Approved by: Odilia Chou MD on 04/13/2024 11:45 AM PDT Station ID: [id number]
[2024-04-13 11:47] LABS: B. PARAPERTUSSIS- RESP PCR PAN NOT DETECTED; B. PERTUSSIS- RESP PCR PANEL NOT DETECTED; C. PNEUMONIAE- RESP PCR PANEL NOT DETECTED; CORONAVIRUS 229E-RESP PCR NOT DETECTED; CORONAVIRUS HKU1-RESP PCR NOT DETECTED; CORONAVIRUS NL63-RESP PCR NOT DETECTED; CORONAVIRUS OC43-RESP PCR NOT DETECTED; HUMAN METAPNEUMOVIRUS NOT DETECTED; INFLUENZA A- RESP PCR PANEL NOT DETECTED; INFLUENZA B - RESP PCR PANEL NOT DETECTED; M. PNEUMONIAE- RESP PCR PANEL NOT DETECTED; PARAINFLUENZA VIRUS 1 NOT DETECTED; PARAINFLUENZA VIRUS 2 NOT DETECTED; PARAINFLUENZA VIRUS 3 NOT DETECTED; PARAINFLUENZA VIRUS 4 NOT DETECTED; RHINOVIRUS/ENTEROVIRUS NOT DETECTED; RSV- RESP PCR PANEL NOT DETECTED; SARS-CoV-2 -RESP PCR PANEL NOT DETECTED
--- NOTE | 2024-04-13 11:48 | CT Report ---
PROCEDURE: Chest W INDICATIONS: resp fail CONTRAST: 100ml omni 300 TECHNIQUE: After the administration of intravenous contrast, a CT scan of the chest was performed. Images were recorded and evaluated at appropriate window settings. Reformats: axial MIP of the chest, coronal and sagittal. For radiation dose reduction, the following was used: automated exposure control, adjustme nt of mA and/or kV according to patient size. COMPARISON: Chest radiograph on the same day and chest radiograph dated 08/28/2021. FINDINGS: Image quality: Diagnostic. Chest wall and lower neck: No thyroid nodule which requires sonographic follow up. No breast mass. No axillary or supraclavicular adenopathy by size. Patient is intubated, ET tube tip is above the mayito a. Lungs and pleura: There is near complete atelectasis of left lower lobe and segmental atelectasis in posterior medial aspect of right lower lobe. Subsegmental atelectasis in posterior aspect of bilatera l upper lobes are also seen. No pleural effusion or pneumothorax. No suspicious pulmonary nodules whi ch require follow up. Mediastinum: Heart size is enlarged. No pericardial effusion. No large vessel abnormality. No mediast inal adenopathy by size criteria. NG tube tip is in distal esophagus proximal to the GE junction. Ri ght internal jugular central venous catheter tip is in SVC. Bones: No aggressive osseous abnormality. Upper Abdomen: Please correlate with CT of abdomen and pelvis findings. IMPRESSION: 1. Large bilateral lower lobe infiltrate/atelectasis and mild bilateral subsegmental atelectasis in p osterior aspect of bilateral upper lobes. No pleural effusion or pneumothorax. 2. ET tube tip is above the vanessa. NG tube tip is in distal esophagus, and should be advanced. 3. Heart size is enlarged, no pericardial effusion. No mediastinal or hilar lymphadenopathy by size c riteria. Reviewed by: Lewis Lovell MD on 04/13/2024 11:46 AM PDT Approved by: Lewis Lovell MD on 04/13/2024 11:46 AM PDT Station ID: [id number]
--- NOTE | 2024-04-13 11:51 | CT Report ---
PROCEDURE: Angio Head/Neck INDICATIONS: cva sx TECHNIQUE: After the administration of intravenous contrast, 1 mm thick sections acquired from the aortic arch t hrough the [employer]. 3-dimensional alyuivj-izaozpbyh-gmifdqjekq (MIP) and/or volume renderin g reformats were acquired of the central intracranial vasculature and neck separately. For radiation dose reduction, the following was used: automated exposure control, adjustment of mA and/or kV acco rding to patient size. CONTRAST: 100ml omni 300 COMPARISON: CT head 04/13/2024. FINDINGS: Image quality: Diagnostic. HEAD CT: See separately dictated CT head report of 04/13/2024. HEAD CT ANGIOGRAPHY: Anterior circulation: Intracranial internal carotid arteries are normal in size and flow. The flow within the paired anterior cerebral arteries is normal and symmetric. The flow within the middle cer ebral arteries is normal and symmetric. The anterior communicating artery is seen. No aneurysms are seen. Posterior circulation: Visualized portions of the vertebral arteries demonstrate normal caliber, and join to form a normal appearing basilar artery. Flow within the posterior cerebral arteries is norm al and symmetric. No aneurysms are seen. NECK CT ANGIOGRAPHY: Carotid system: The great vessels demonstrate a conventional anatomy as they arise from the aortic a rch. The origins of the common carotid arteries appear patent. The common carotid arteries demonstr ate normal caliber and courses. The bifurcation regions are both widely patent. The internal caroti d arteries demonstrate normal calibers and courses. Posterior circulation: Left vertebral artery dominance. The origins of the vertebral arteries both ap pear widely patent. The more superior extracranial portions of both vertebral arteries also demonstr ate normal courses and calibers. They join to form a normal appearing basilar artery. Soft tissues: Visualized neck soft tissues demonstrate no suspicious abnormalities. Endotracheal tu be and nasogastric tube are present. Minimal effusions and superimposed consolidations are present in the upper lobes bilaterally, left greater than right. Bones: No suspicious bony lesions. Visualized cervical spine appears normally aligned. IMPRESSION: No significant intracranial arterial abnormality is seen. No significant abnormality is seen within the arteries of the neck. The estimate of stenosis included in the report of the imaging study was calculated using the NASCET method Reviewed by: Odilia Chou MD on 04/13/2024 11:50 AM PDT Approved by: Odilia Chou MD on 04/13/2024 11:50 AM PDT Station ID: [id number]
--- NOTE | 2024-04-13 12:08 | CT Report ---
PROCEDURE: Abdomen/Pelvis W INDICATIONS: ams, iv only,` CONTRAST: 100ml omni 300 TECHNIQUE: After the administration of intravenous contrast, a CT scan of the abdomen and pelvis was performed. Images were recorded and evaluated at appropriate window settings. Reformats: coronal and sagittal. F or radiation dose reduction, the following was used: automated exposure control, adjustment of mA and /or kV according to patient size. COMPARISON: None. FINDINGS: Image quality: Diagnostic. Lower chest: Please correlate with CT of chest findings from the same day. Liver: Hypodense area in posterior aspect of right hepatic lobe measures 1.7 x 1.7 cm in size series 10 image 31 and may represent hepatic cyst versus hemangioma. Small subcentimeter hypodense area in l eft hepatic lobe is also seen measures 6 mm in size series 10 image 32. Gallbladder: No radiopaque stones or wall thickening. Biliary tree: No intrahepatic or extrahepatic dilation, accounting for age. Spleen: No splenomegaly. Pancreas: No pancreatic ductal dilation. Adrenals: No adrenal nodule. Kidneys and ureters: No hydronephrosis. No renal cystic lesion which requires follow up. No solid mas s. Stomach, bowel and peritoneum: No gastric or small bowel dilation. No abnormal wall thickening. No pa thologic free fluid. No abscess collection. No peritoneal free air. Lymph nodes: No central or retroperitoneal adenopathy. Vessels: No infrarenal aortic aneurysm. Patent portal vein. PELVIS Reproductive organs: Enlarged prostate gland is seen with mass effect on floor of urinary bladder. di stended urinary bladder. No abnormal wall thickening, accounting for underdistention. Pelvic lymph nodes: No pelvic adenopathy by size criteria. Bones: No aggressive osseous abnormality. 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 Other: No significant ventral or inguinal hernia. IMPRESSION: 1. Likely cyst or hemangioma in posterior segment of right hepatic lobe and possible cyst in left hep atic lobe as above. 2. No bowel obstruction or abnormal bowel wall thickening. No mesenteric fat stranding. No free fluid of free air. No abscess collection. 3. Dow catheter is partially distended urinary bladder. No gross bladder wall abnormalities. Enlarg ed prostate gland with mass effect on floor of urinary bladder. Reviewed by: Lewis Lovell MD on 04/13/2024 12:07 PM PDT Approved by: Lewis Lovell MD on 04/13/2024 12:07 PM PDT Station ID: [id number]
--- NOTE | 2024-04-13 12:59 | XRAY Report ---
PROCEDURE: Abdomen 1 V INDICATIONS: Replaced NG tube TECHNIQUE: One view of the abdomen acquired. COMPARISON: CT of abdomen and pelvis dated 04/13/2024. FINDINGS: Surgical changes and devices: Dow catheter is seen within distended urinary bladder. NG tube is coi led within distal esophagus with the tip injecting in distal esophageal lumen. Bowel: Bowel gas pattern is normal. Soft tissues: No suspicious abdominal calcifications. Visualized solid organ contours appear normal in size. Bones: No suspicious bony lesions. IMPRESSION: NG tube is coiled within distal esophagus with the tip in the distal esophageal lumen and should be r eplaced. Reviewed by: Lewis Lovell MD on 04/13/2024 12:57 PM PDT Approved by: Lewis Lovell MD on 04/13/2024 12:57 PM PDT Station ID: [id number]
--- NOTE | 2024-04-13 13:52 | XRAY Report ---
PROCEDURE: Abdomen 1 V INDICATIONS: NGT third time TECHNIQUE: One view of the abdomen acquired. COMPARISON: Abdomen x-ray 04/13/2024 FINDINGS: Surgical changes and devices: Nasogastric tube is in appropriate aeration. Bowel: Bowel gas pattern is normal. Soft tissues: No suspicious abdominal calcifications. Visualized solid organ contours appear normal in size. Bones: No suspicious bony lesions. IMPRESSION: Appropriate location of nasogastric tube. Reviewed by: Odilia Chou MD on 04/13/2024 1:51 PM PDT Approved by: Odilia Chou MD on 04/13/2024 1:51 PM PDT Station ID: [id number]
--- NOTE | 2024-04-13 16:33 | ED Physician Documentation ---
ED Addendum - Addendum Addendum: 04/13/24 16:32 Patient was signed out to me by Dr. Brito awaiting repeat head CT. Head CT was performed, does not show any significant changes compared to the initial CT scan. Therefore reconsulted the hospitalist, Dr. Cantrell, she is still awaiting a call back from neurology. She will call back when she talks to neurology. Meanwhile the patient is moving all extremities, when the propofol is decreased he is able to follow commands, open his eyes, squeeze hands etc. 04/13/24 16:[address] Cantrell, hospitalist, she spoke with Dr. Stafford, neurology from [facility], he is recommending transfer for higher level of care. He states that the patient is going to need an MRI with and without contrast. He states that the patient should have a neurosurgical consult even though there is no acute intracranial pathology and that the linear hyperdensity in the right temporoparietal area is consistent with parenchymal calcifications. He also recommends treating with antibiotics for occult infection even though there is no fever or evidence of antecedent infection. As we only have a portable MRI here and we cannot do an MRI with a ventilated patient, we will attempt to transfer the patient. 04/13/24 18:55 I discussed the case with Dr. Briseno, Tractor Crane Engineer at [facility] who recommended that we try to see if the patient could be extubated in the emergency department. The patient was taken off sedation for about 45 minutes to an hour, he was breathing over the vent but not following commands, he moves the right side of his body better than the left side of his body. He does not appear to be interacting and understanding commands, therefore the sedation was restarted and the patient does not appear to be able to be extubated at this time. We will recontact [facility] for transfer. 04/13/24 19:28 Patient is excepted in transfer to [facility]. COBRA forms completed. Patient will be sent via helicopter. Just prior to transport, the patient did develop a slight fever, Tmax 38.8. Departure - Departure Disposition: 02 Transfer Acute Care Hosp Clinical Impression: Coma Qualifiers: Coma depth: Thiago coma 3-8 Coma timing: in the field (EMT or ambulance) Qualified Code(s): R40.2431 - Thiago coma scale score 3-8, in the field [EMT or ambulance] Respiratory failure Qualifiers: Chronicity: acute Respiratory failure complication: unspecified whether with hypoxia or hypercapnia Qualified Code(s): J96.00 - Acute respiratory failure, unspecified whether with hypoxia or hypercapnia Condition: Serious Forms: PCP List Procedures - Lumbar Puncture - Major Position: Laying left side (w) Location: L4-L5, Midline approach Anesthesia: Local lidocaine CSF: Clear Other: Sterile prep and drape, Patient tolerated well, No complications Results - Vitals Vitals: Vital Signs - 24 hr 04/13/24 04/13/24 04/13/24 09:30 09:34 09:35 Temperature 35.7 C L 35.7 C L Heart Rate 87 84 86 Respiratory 21 25 H 12 Rate Blood Pressure 159/93 H 159/93 H 161/94 H Blood Pressure [Right] O2 Saturation 100 100 100 If not protocol 15 15 : Oxygen Flow, liters/minute 04/13/24 04/13/24 04/13/24 09:40 09:45 09:50 Temperature Heart Rate 104 H 116 H 85 Respiratory 27 H 20 18 Rate Blood Pressure 162/93 H 205/140 H 149/81 H Blood Pressure [Right] O2 Saturation 100 100 100 If not protocol 15 15 : Oxygen Flow, liters/minute 04/13/24 04/13/24 04/13/24 09:55 09:58 10:00 Temperature Heart Rate 87 84 80 Respiratory 16 16 Rate Blood Pressure 141/84 H 140/81 H Blood Pressure [Right] O2 Saturation 100 100 If not protocol : Oxygen Flow, liters/minute 04/13/24 04/13/24 04/13/24 10:05 10:10 10:15 Temperature Heart Rate 84 80 83 Respiratory 19 18 19 Rate Blood Pressure 160/84 H 144/76 H 150/77 H Blood Pressure [Right] O2 Saturation 100 100 100 If not protocol : Oxygen Flow, liters/minute 04/13/24 04/13/24 04/13/24 10:20 10:25 10:30 Temperature Heart Rate 82 79 78 Respiratory 18 19 19 Rate Blood Pressure 148/79 H 144/75 H 146/83 H Blood Pressure [Right] O2 Saturation 100 100 100 If not protocol : Oxygen Flow, liters/minute 04/13/24 04/13/24 04/13/24 10:34 10:45 11:00 Temperature Heart Rate 88 71 87 Respiratory 18 23 Rate Blood Pressure 150/82 H 149/89 H Blood Pressure [Right] O2 Saturation 97 98 If not protocol : Oxygen Flow, liters/minute 04/13/24 04/13/24 04/13/24 11:15 11:22 11:30 Temperature Heart Rate 77 88 74 Respiratory 18 18 Rate Blood Pressure 141/70 H 145/75 H Blood Pressure 159/93 H [Right] O2 Saturation 98 98 If not protocol : Oxygen Flow, liters/minute 04/13/24 04/13/24 04/13/24 11:45 12:00 12:15 Temperature Heart Rate 75 76 73 Respiratory 19 19 19 Rate Blood Pressure 135/72 H 136/76 H 131/75 H Blood Pressure [Right] O2 Saturation 98 98 99 If not protocol : Oxygen Flow, liters/minute 04/13/24 04/13/24 04/13/24 12:30 12:45 13:00 Temperature 36 C L Heart Rate 64 66 54 L Respiratory 22 20 18 Rate Blood Pressure 152/72 H 125/63 109/60 Blood Pressure [Right] O2 Saturation 99 99 99 If not protocol : Oxygen Flow, liters/minute 04/13/24 04/13/24 04/13/24 13:15 13:26 13:30 Temperature 36.3 C L Heart Rate 81 54 L 68 Respiratory 17 22 Rate Blood Pressure 151/75 H 125/64 Blood Pressure [Right] O2 Saturation 100 100 If not protocol : Oxygen Flow, liters/minute 04/13/24 04/13/24 04/13/24 13:45 14:00 14:15 Temperature Heart Rate 67 65 66 Respiratory 17 17 18 Rate Blood Pressure 127/59 L 122/61 122/60 Blood Pressure [Right] O2 Saturation 100 100 98 If not protocol : Oxygen Flow, liters/minute 04/13/24 04/13/24 04/13/24 14:30 14:45 15:00 Temperature Heart Rate 65 61 63 Respiratory 18 20 19 Rate Blood Pressure 117/60 114/56 L 116/58 L Blood Pressure [Right] O2 Saturation 98 99 98 If not protocol : Oxygen Flow, liters/minute 04/13/24 04/13/24 04/13/24 15:15 15:30 15:45 Temperature Heart Rate 86 70 87 Respiratory 18 17 19 Rate Blood Pressure 132/63 H 120/53 L 130/63 Blood Pressure [Right] O2 Saturation 100 98 99 If not protocol : Oxygen Flow, liters/minute 04/13/24 04/13/24 04/13/24 16:00 16:15 16:30 Temperature 37.4 C Heart Rate 72 90 80 Respiratory 19 19 19 Rate Blood Pressure 132/60 H 146/68 H 125/56 L Blood Pressure [Right] O2 Saturation 97 99 96 If not protocol : Oxygen Flow, liters/minute 04/13/24 04/13/24 04/13/24 16:45 17:00 17:30 Temperature Heart Rate 72 71 77 Respiratory 17 20 17 Rate Blood Pressure 121/55 L 120/57 L 128/55 L Blood Pressure [Right] O2 Saturation 97 98 97 If not protocol : Oxygen Flow, liters/minute 04/13/24 04/13/24 04/13/24 17:45 18:00 18:15 Temperature 37.8 C Heart Rate 87 90 89 Respiratory 18 18 18 Rate Blood Pressure 132/65 H 143/77 H 135/61 H Blood Pressure [Right] O2 Saturation 96 97 98 If not protocol : Oxygen Flow, liters/minute 04/13/24 04/13/24 04/13/24 18:27 18:30 18:45 Temperature Heart Rate 88 79 85 Respiratory 18 23 Rate Blood Pressure 122/42 L 112/58 L Blood Pressure [Right] O2 Saturation 96 95 If not protocol : Oxygen Flow, liters/minute Oxygen O2 Source Room air Oxygen Flow Rate 15 - Labs Labs: Microbiology 04/13/24 17:27 CSF Culture - Preliminary Cerebral Spinal Fluid Laboratory Tests 04/13/24 04/13/24 04/13/24 09:45 09:45 09:45 WBC 5.5 RBC 4.41 L Hgb 13.9 L Hct 41.9 L MCV 95.0 H MCH 31.5 H MCHC 33.2 RDW 13.1 Plt Count 208 MPV 9.0 Neut # (Auto) 3.3 Lymph # (Auto) 1.5 Kemper # (Auto) 0.4 Eos # (Auto) 0.2 Baso # (Auto) 0.0 Absolute Nucleated RBC 0.00 Nucleated RBC % 0.0 PT 12.1 INR 1.1 Bld Gas Analysis Time Sample Site ABG pH ABG pCO2 ABG pO2 ABG HCO3 ABG Total CO2 ABG O2 Saturation ABG Base Excess Romel Test VBG pH VBG pCO2 VBG pO2 VBG HCO3 VBG Total CO2 VBG O2 Saturation VBG Base Excess VBG Total Hgb VBG Oxyhemoglobin VBG Carboxyhemoglobin VBG Methemoglobin Respiration Rate O2 Delivery Device Vent Mode FiO2 Tidal Volume PEEP Sodium 140 Potassium 3.8 Chloride 108 Carbon Dioxide 27 Anion Gap 5.0 L BUN 16 Creatinine 0.9 Estimated GFR (MDRD) 81 L Glucose 124 H Lactic Acid Calcium 8.8 Magnesium 2.0 Total Bilirubin 0.6 AST 21 ALT 15 Alkaline Phosphatase 67 Total Creatine Kinase 112 Troponin I High Sens Total Protein 7.0 Albumin 4.3 Globulin 2.7 Albumin/Globulin Ratio 1.6 Urine Color Urine Clarity Urine pH Ur Specific [place] Urine Protein Urine Glucose (UA) Urine Ketones Urine Occult Blood Urine Nitrite Urine Bilirubin Urine Urobilinogen Ur Leukocyte Esterase Urine RBC Urine WBC Ur Squamous Epith Cells Urine Bacteria Ur Microscopic Review Urine Culture Comments CSF Color CSF Clarity Xanthrochromic CSF WBC CSF RBC CSF Cell Count Tube # CSF Glucose CSF Total Protein Nasal Adenovirus (PCR) Nasal B. parapertussis DNA (PCR) Nasal Coronavir 229E PCR Nasal Coronavir HKU1 PCR Nasal Coronavir NL63 PCR Nasal Coronavir OC43 PCR Nasal Enterovir/Rhinovir PCR Nasal Influenza B PCR Nasal Influenza A PCR Nasal Parainfluen 1 PCR Nasal Parainfluen 2 PCR Nasal Parainfluen 3 PCR Nasal Parainfluen 4 PCR Nasal RSV (PCR) Nasal B.pertussis DNA PCR Nasal C.pneumoniae (PCR) [place] Human Metapneumo PCR Nasal M.pneumoniae (PCR) Nasal SARS-CoV-2 (PCR) Urine Opiates Screen Ur Buprenorphine Scrn Ur Oxycodone Screen Urine Methadone Screen Ur Barbiturates Screen Ur Tricyclics Screen Ur Phencyclidine Scrn Ur Amphetamine Screen U Methamphetamines Scrn U Benzodiazepines Scrn Urine Cocaine Screen U Cannabinoids Screen Ur Drug Screen Comment 04/13/24 04/13/24 04/13/24 09:45 09:45 09:45 WBC RBC Hgb Hct MCV MCH MCHC RDW Plt Count MPV Neut # (Auto) Lymph # (Auto) Kem[place] # (Auto) Eos # (Auto) Baso # (Auto) Absolute Nucleated RBC Nucleated RBC % PT INR Bld Gas Analysis Time Sample Site ABG pH ABG pCO2 ABG pO2 ABG HCO3 ABG Total CO2 ABG O2 Saturation ABG Base Excess Romel Test VBG pH 7.314 VBG pCO2 46.0 VBG pO2 41.0 VBG HCO3 22.9 L VBG Total CO2 24.3 VBG O2 Saturation 75.5 VBG Base Excess -3.5 L VBG Total Hgb VBG Oxyhemoglobin VBG Carboxyhemoglobin VBG Methemoglobin Respiration Rate O2 Delivery Device Vent Mode FiO2 Tidal Volume PEEP Sodium Potassium Chloride Carbon Dioxide Anion Gap BUN Creatinine Estimated GFR (MDRD) Glucose Lactic Acid 1.1 Calcium Magnesium Total Bilirubin AST ALT Alkaline Phosphatase Total Creatine Kinase Troponin I High Sens 4.2 Total Protein Albumin Globulin Albumin/Globulin Ratio Urine Color Urine Clarity Urine pH Ur Specific [place] Urine Protein Urine Glucose (UA) Urine Ketones Urine Occult Blood Urine Nitrite Urine Bilirubin Urine Urobilinogen Ur Leukocyte Esterase Urine RBC Urine WBC Ur Squamous Epith Cells Urine Bacteria Ur Microscopic Review Urine Culture Comments CSF Color CSF Clarity Xanthrochromic CSF WBC CSF RBC CSF Cell Count Tube # CSF Glucose CSF Total Protein Nasal Adenovirus (PCR) Nasal B. parapertussis DNA (PCR) Nasal Coronavir 229E PCR Nasal Coronavir HKU1 PCR Nasal Coronavir NL63 PCR Nasal Coronavir OC43 PCR Nasal Enterovir/Rhinovir PCR Nasal Influenza B PCR Nasal Influenza A PCR Nasal Parainfluen 1 PCR Nasal Parainfluen 2 PCR Nasal Parainfluen 3 PCR Nasal Parainfluen 4 PCR Nasal RSV (PCR) Nasal B.pertussis DNA PCR Nasal C.pneumoniae (PCR) [place] Human Metapneumo PCR Nasal M.pneumoniae (PCR) Nasal SARS-CoV-2 (PCR) Urine Opiates Screen Ur Buprenorphine Scrn Ur Oxycodone Screen Urine Methadone Screen Ur Barbiturates Screen Ur Tricyclics Screen Ur Phencyclidine Scrn Ur Amphetamine Screen U Methamphetamines Scrn U Benzodiazepines Scrn Urine Cocaine Screen U Cannabinoids Screen Ur Drug Screen Comment 04/13/24 04/13/24 04/13/24 09:45 10:20 10:21 WBC RBC Hgb Hct MCV MCH MCHC RDW Plt Count MPV Neut # (Auto) Lymph # (Auto) Kem[place] # (Auto) Eos # (Auto) Baso # (Auto) Absolute Nucleated RBC Nucleated RBC % PT INR Bld Gas Analysis Time 1030 Sample Site RIGHT RADIAL ABG pH 7.38 ABG pCO2 36 ABG pO2 205 H* ABG HCO3 21.1 L ABG Total CO2 22.2 ABG O2 Saturation 99 H ABG Base Excess -3.4 L Romel Test POSITIVE VBG pH VBG pCO2 VBG pO2 VBG HCO3 VBG Total CO2 VBG O2 Saturation VBG Base Excess VBG Total Hgb 15.1 VBG Oxyhemoglobin 75 L VBG Carboxyhemoglobin 0.5 VBG Methemoglobin 0.8 Respiration Rate 16 O2 Delivery Device VENTILATOR Vent Mode ASSIST/CONTROL FiO2 80.00 Tidal Volume 400 PEEP 5 Sodium Potassium Chloride Carbon Dioxide Anion Gap BUN Creatinine Estimated GFR (MDRD) Glucose Lactic Acid Calcium Magnesium Total Bilirubin AST ALT Alkaline Phosphatase Total Creatine Kinase Troponin I High Sens Total Protein Albumin Globulin Albumin/Globulin Ratio Urine Color YELLOW Urine Clarity CLEAR Urine pH 6.5 Ur Specific [place] 1.025 Urine Protein NEGATIVE Urine Glucose (UA) NEGATIVE Urine Ketones NEGATIVE Urine Occult Blood MODERATE H Urine Nitrite NEGATIVE Urine Bilirubin NEGATIVE Urine Urobilinogen 0.2 (NORMAL) Ur Leukocyte Esterase NEGATIVE Urine RBC 11-25 H Urine WBC 0-3 Ur Squamous Epith Cells RARE Squamous Urine Bacteria Rare Ur Microscopic Review INDICATED Urine Culture Comments NOT INDICATED CSF Color CSF Clarity Xanthrochromic CSF WBC CSF RBC CSF Cell Count Tube # CSF Glucose CSF Total Protein Nasal Adenovirus (PCR) Nasal B. parapertussis DNA (PCR) Nasal Coronavir 229E PCR Nasal Coronavir HKU1 PCR Nasal Coronavir NL63 PCR Nasal Coronavir OC43 PCR Nasal Enterovir/Rhinovir PCR Nasal Influenza B PCR Nasal Influenza A PCR Nasal Parainfluen 1 PCR Nasal Parainfluen 2 PCR Nasal Parainfluen 3 PCR Nasal Parainfluen 4 PCR Nasal RSV (PCR) Nasal B.pertussis DNA PCR Nasal C.pneumoniae (PCR) [place] Human Metapneumo PCR Nasal M.pneumoniae (PCR) Nasal SARS-CoV-2 (PCR) Urine Opiates Screen NEGATIVE Ur Buprenorphine Scrn NEGATIVE Ur Oxycodone Screen NEGATIVE Urine Methadone Screen NEGATIVE Ur Barbiturates Screen NEGATIVE Ur Tricyclics Screen NEGATIVE Ur Phencyclidine Scrn NEGATIVE Ur Amphetamine Screen NEGATIVE U Methamphetamines Scrn NEGATIVE U Benzodiazepines Scrn NEGATIVE Urine Cocaine Screen NEGATIVE U Cannabinoids Screen NEGATIVE Ur Drug Screen Comment CUTOFF CONC BELOW: 04/13/24 04/13/24 04/13/24 10:33 17:27 17:27 WBC RBC Hgb Hct MCV MCH MCHC RDW Plt Count MPV Neut # (Auto) Lymph # (Auto) [place] # (Auto) Eos # (Auto) Baso # (Auto) Absolute Nucleated RBC Nucleated RBC % PT INR Bld Gas Analysis Time Sample Site ABG pH ABG pCO2 ABG pO2 ABG HCO3 ABG Total CO2 ABG O2 Saturation ABG Base Excess Romel Test VBG pH VBG pCO2 VBG pO2 VBG HCO3 VBG Total CO2 VBG O2 Saturation VBG Base Excess VBG Total Hgb VBG Oxyhemoglobin VBG Carboxyhemoglobin VBG Methemoglobin Respiration Rate O2 Delivery Device Vent Mode FiO2 Tidal Volume PEEP Sodium Potassium Chloride Carbon Dioxide Anion Gap BUN Creatinine Estimated GFR (MDRD) Glucose Lactic Acid Calcium Magnesium Total Bilirubin AST ALT Alkaline Phosphatase Total Creatine Kinase Troponin I High Sens Total Protein Albumin Globulin Albumin/Globulin Ratio Urine Color Urine Clarity Urine pH Ur Specific [place] Urine Protein Urine Glucose (UA) Urine Ketones Urine Occult Blood Urine Nitrite Urine Bilirubin Urine Urobilinogen Ur Leukocyte Esterase Urine RBC Urine WBC Ur Squamous Epith Cells Urine Bacteria Ur Microscopic Review Urine Culture Comments CSF Color COLORLESS CSF Clarity CLEAR Xanthrochromic ABSENT CSF WBC 1 CSF RBC 24 H CSF Cell Count Tube # CSF TUBE# 3 CSF Glucose 70 CSF Total Protein 66 H Nasal Adenovirus (PCR) NOT DETECTED Nasal B. parapertussis DNA (PCR) NOT DETECTED Nasal Coronavir 229E PCR NOT DETECTED Nasal Coronavir HKU1 PCR NOT DETECTED Nasal Coronavir NL63 PCR NOT DETECTED Nasal Coronavir OC43 PCR NOT DETECTED Nasal Enterovir/Rhinovir PCR NOT DETECTED Nasal Influenza B PCR NOT DETECTED Nasal Influenza A PCR NOT DETECTED Nasal Parainfluen 1 PCR NOT DETECTED Nasal Parainfluen 2 PCR NOT DETECTED Nasal Parainfluen 3 PCR NOT DETECTED Nasal Parainfluen 4 PCR NOT DETECTED Nasal RSV (PCR) NOT DETECTED Nasal B.pertussis DNA PCR NOT DETECTED Nasal C.pneumoniae (PCR) NOT DETECTED [place] Human Metapneumo PCR NOT DETECTED Nasal M.pneumoniae (PCR) NOT DETECTED Nasal SARS-CoV-2 (PCR) NOT DETECTED Urine Opiates Screen Ur Buprenorphine Scrn Ur Oxycodone Screen Urine Methadone Screen Ur Barbiturates Screen Ur Tricyclics Screen Ur Phencyclidine Scrn Ur Amphetamine Screen U Methamphetamines Scrn U Benzodiazepines Scrn Urine Cocaine Screen U Cannabinoids Screen Ur Drug Screen Comment PD MEDICAL DECISION MAKING - Critical Care Time(min): 75 Time Includes: Direct patient care, Reassess patient, Document care, Coordinate care, Medical consult Data interpretation: See progress note Procedures included in critical care time: See progress note Procedures excluded from critical care time: Lumbar puncture, See progress note
--- NOTE | 2024-04-13 16:42 | CT Report ---
PROCEDURE: Head WO INDICATIONS: aloc, intubated TECHNIQUE: Noncontrast 4.5 mm thick angled axial sections acquired from the foramen magnum to the vertex. For r adiation dose reduction, the following was used: automated exposure control, adjustment of mA and/or kV according to patient size. COMPARISON: 04/13/2024 at 11:10 AM. FINDINGS: Image quality: Excellent. CSF spaces: Basal cisterns are patent. No extra-axial fluid collections. Ventricles are normal in size and shape. Brain: No midline shift. Earlier noted 3 to 4 mm hyperdensity adjacent to posterior horn of right la teral ventricle is again seen and is not significantly changed in overall appearance. No significant surrounding vasogenic edema is seen. No new area of abnormal intracranial density. Kat-white matter interface is normal. Skull and face: Calvarium and visualized facial bones are intact, without suspicious lesions. Sinuses: NG tube is noted. Fluid is seen within right ethmoid sinusitis, right sphenoid sinus and rig ht maxillary sinus. Bilateral mastoid air cells are well aerated. IMPRESSION: No acute intracranial pathology. Stable linear hyperdensity in right temporoparietal lobe adjacent to right temporal horn most consistent with parenchymal calcifications likely from prior injury/infarct ion. No new area of abnormal intracranial densities. NG tube is seen with small amount of fluid within right paranasal sinuses. Reviewed by: Lewis Lovell MD on 04/13/2024 4:40 PM PDT Approved by: Lewis Lovell MD on 04/13/2024 4:40 PM PDT Station ID: [id number]
[2024-04-13] MEDS: VANCOMYCIN INJ 1 GM in SODIUM CHLORIDE 0.9% 500 ML IV STA (17:08)
[2024-04-13] MEDS: ACYCLOVIR INJ 500 MG in SODIUM CHLORIDE 0.9% 250 ML IV STA (17:09)
[2024-04-13] MEDS: cefTRIAXone 1 GM VIAL IVP STA (17:09)
[2024-04-13] MEDS: ACYCLOVIR IV STA (17:44)
[2024-04-13] MEDS: SODIUM CHLORIDE 0.9% IV STA (17:44)
[2024-04-13] MEDS: cefTRIAXone 2 GM in SODIUM CHLORIDE 0.9% MINIBAG 100 ML IV STA (17:51)
[2024-04-13 17:58] LABS: CLARITY,CSF CLEAR (CLEAR); COLOR,CSF COLORLESS (COLORLESS); CSF TUBE # CSF TUBE# 3; CSF XANTHOCHROMIA ABSENT (ABSENT); WHITE BLOOD CELL,CSF 1 /mm^3 (0-5)
[2024-04-13 17:59] LABS: RED BLOOD CELL,CSF 24 /mm^3 (0-1)
[2024-04-13 18:05] LABS: TOTAL PROTEIN,CSF 66 mg/dL (15-60)
[2024-04-13 18:11] LABS: CSF - GLUCOSE 70 mg/dL (45-70)
[2024-04-13] MEDS: VANCOMYCIN INJ 2 GM in SODIUM CHLORIDE 0.9% 500 ML IV STA (18:27)
[2024-04-13] MEDS: iohexoL-300 100 ML VIAL IVP ONE (19:07)
[2024-04-13 22:09] VITALS: O2SAT 97
[2024-04-13 22:34] VITALS: BP 127/48
== END 2024-04-13 22:35 | disposition short-term general hospital (02) ==
LOC: ED 09:31
DX: R40.20 Unspecified coma (principal); R40.2431 Glasgow coma scale score 3-8, in the field [EMT or ambulance]; J96.90 Respiratory failure, unspecified, unspecified whether with hypoxia or hypercapnia
CPT/HCPCS: 31500; 36415; 36556; 36600; 51702; 62270; 70450; 70496; 70498; 71260; 74018; 74177; 80053; 80306; 81001; 82375; 82550; 82803; 82945; 83605; 83735; 84157; 84484; 85025; 85610; 87040; 87070; 87205; 87633; 89051; 93005; 94002; 96361; 96365; 96366; 96368; 96375; 99291; 99292; J0133; J3370; Q9967; 81003; 81599; 87086; 87529

== ENCOUNTER 2024-05-10 08:00 | Outpatient (CLI) | payer MEDICARE, OTHER ==
[2024-05-11 00:05] LABS: BASOPHILS # (AUTO) 0.1 10^3/uL (0.0-0.1); BASOPHILS % (AUTO) 0.4 %; EOSINOPHILS # (AUTO) 0.1 10^3/uL (0.0-0.7); EOSINOPHILS % (AUTO) 0.7 %; HCT - HEMATOCRIT 44.6 % (42.0-52.0); HGB - HEMOGLOBIN 14.5 g/dL (14.0-18.0); LYMPHOCYTES # (AUTO) 1.7 10^3/uL (1.5-3.5); LYMPHOCYTES % (AUTO) 12.8 %; MEAN CORPUSCULAR HEMOGLOBIN 31.9 pg (27.0-31.0); MEAN CORPUSCULAR HGB CONC 32.5 g/dL (32.0-36.0); MEAN CORPUSCULAR VOLUME 98.2 fL (80.0-94.0); MEAN PLATELET VOLUME 11.2 fL (7.4-11.4); MONOCYTES # (AUTO) 0.9 10^3/uL (0.0-1.0); MONOCYTES % (AUTO) 6.7 %; NEUTROPHILS # (AUTO) 10.3 10^3/uL (1.5-6.6); NEUTROPHILS % (AUTO) 79.1 %; PLT - PLATELET COUNT 316 10^3/uL (130-450); RED BLOOD COUNT 4.54 10^6/uL (4.70-6.10); RED CELL DISTRIBUTION WIDTH 12.8 % (12.0-15.0)
== END 2024-05-10 23:59 | disposition home or self-care (01) ==
LOC: LAB.R 08:00
PROVIDERS: ATTEND Family Medicine
DX: R59.0 Localized enlarged lymph nodes (principal)
CPT/HCPCS: 85025; 85651; 86140

== ENCOUNTER 2024-05-22 08:00 | Outpatient (CLI) | payer MEDICARE, OTHER ==
[2024-05-22 17:37] LABS: BASOPHILS % (AUTO) 0.3 %; EOSINOPHILS # (AUTO) 0.1 10^3/uL (0.0-0.7); EOSINOPHILS % (AUTO) 0.7 %; HCT - HEMATOCRIT 41.7 % (42.0-52.0); HGB - HEMOGLOBIN 13.7 g/dL (14.0-18.0); LYMPHOCYTES # (AUTO) 1.4 10^3/uL (1.5-3.5); LYMPHOCYTES % (AUTO) 12.9 %; MEAN CORPUSCULAR HEMOGLOBIN 32.4 pg (27.0-31.0); MEAN CORPUSCULAR HGB CONC 32.9 g/dL (32.0-36.0); MEAN CORPUSCULAR VOLUME 98.6 fL (80.0-94.0); MEAN PLATELET VOLUME 11.7 fL (7.4-11.4); MONOCYTES # (AUTO) 0.7 10^3/uL (0.0-1.0); MONOCYTES % (AUTO) 6.5 %; NEUTROPHILS # (AUTO) 8.5 10^3/uL (1.5-6.6); NEUTROPHILS % (AUTO) 79.2 %; PLT - PLATELET COUNT 279 10^3/uL (130-450); RED BLOOD COUNT 4.23 10^6/uL (4.70-6.10); RED CELL DISTRIBUTION WIDTH 13.6 % (12.0-15.0); WHITE BLOOD COUNT 10.7 x10^3/uL (4.8-10.8)
== END 2024-05-22 23:59 | disposition home or self-care (01) ==
LOC: LAB.R 08:00
PROVIDERS: ATTEND Family Medicine
DX: I68.0 Cerebral amyloid angiopathy (principal); R68.89 Other general symptoms and signs
CPT/HCPCS: 85025

== ENCOUNTER 2024-05-25 08:00 | Outpatient (CLI) | payer MEDICARE, OTHER ==
[2024-05-25 19:05] LABS: BILIRUBIN,URINE NEGATIVE (NEGATIVE); GLUCOSE, URINE (UA) NEGATIVE (NEGATIVE); KETONES,URINE (UA) NEGATIVE (NEGATIVE); LEUKOCYTE ESTERASE, URINE NEGATIVE (NEGATIVE); NITRITE,URINE NEGATIVE (NEGATIVE); OCCULT BLOOD,URINE NEGATIVE (NEGATIVE); PH,URINE 5.5 PH (5.0-7.5); PROTEIN,URINE TRACE mg/dL (NEGATIVE); UROBILINOGEN,URINE 0.2 (NORMAL) E.U./dL (NORMAL)
[2024-05-25 19:12] LABS: CLARITY,URINE HAZY (CLEAR)
[2024-05-25 19:26] LABS: EPITHELIAL CELLS,UR FEW Transitional /HPF (<= Few); RBC,URINE 0-5 /HPF (0-5); SQUAMOUS EPITHELIAL CELL,UR FEW Squamous (<= Few); WBC,URINE 0-3 /HPF (0-3)
[2024-05-25 19:27] LABS: AMORPHOUS SEDIMENT,UR Few /LPF; BACTERIA,URINE Few /HPF (None Seen)
== END 2024-05-25 23:59 | disposition home or self-care (01) ==
LOC: LAB.R 08:00
PROVIDERS: ATTEND Family Medicine
DX: N39.0 Urinary tract infection, site not specified (principal)
CPT/HCPCS: 81001; 81003; 87086

== ENCOUNTER 2024-05-26 08:00 | Outpatient (CLI) | payer MEDICARE, OTHER ==
[2024-05-26 16:09] LABS: ALBUMIN 2.9 g/dL (3.2-5.5); ALBUMIN/GLOBULIN RATIO 0.8 (1.0-2.2); BILIRUBIN,TOTAL 0.6 mg/dL (0.2-1.0); CALCIUM 8.3 mg/dL (8.5-10.3); CREATININE 0.6 mg/dL (0.6-1.3); POTASSIUM 3.3 mmol/L (3.5-4.5); TOTAL PROTEIN 6.4 g/dL (6.4-8.9)
== END 2024-05-26 23:59 | disposition home or self-care (01) ==
LOC: LAB.R 08:00
PROVIDERS: ATTEND Family Medicine
DX: I10 Essential (primary) hypertension (principal)
CPT/HCPCS: 80048; 80053

== ENCOUNTER 2024-05-28 15:18 | Outpatient (CLI) | payer MEDICARE, OTHER ==
--- NOTE | 2024-05-30 23:57 | Ultrasound Report ---
PROCEDURE: Soft Tissue Head or Neck INDICATIONS: SWOLLEN LYMPH NODES TECHNIQUE: Soft tissue ultrasound, with image documentation. COMPARISON: None FINDINGS: Ultrasound of the neck shows unremarkable soft tissue. Normal vasculature. Fascial and mus cular planes are well-maintained. IMPRESSION: Unremarkable soft tissue ultrasound of the neck without evidence of lymphadenopathy. Reviewed by: Ozzy Queen MD on 05/30/2024 10:55 PM AKDT Approved by: Ozzy Queen MD on 05/30/2024 10:55 PM AKDT Station ID: [id number]
== END 2024-05-28 15:19 | disposition home or self-care (01) ==
LOC: DI 15:18
PROVIDERS: ATTEND Family Medicine
DX: R59.0 Localized enlarged lymph nodes (principal)

== ENCOUNTER 2024-06-01 22:20 | Outpatient (CLI) | payer MEDICARE, OTHER | END 2024-06-01 22:21 | disposition critical access hospital (66) | LOC: EMS 22:20 | DX: T85.528A Displacement of other gastrointestinal prosthetic devices, implants and grafts, initial encounter (principal); I69.354 Hemiplegia and hemiparesis following cerebral infarction affecting left non-dominant side | CPT/HCPCS: A0425; A0429 ==

== ENCOUNTER 2024-06-01 22:25 | Emergency (ER) | payer MEDICARE, OTHER ==
--- NOTE | 2024-06-01 22:35 | ED Physician Documentation ---
History of Present Illness - Stated complaint Stated Complaint: PULLED OUT PEG TUBE - History obtained from History obtained from: EMS - Additonal information Additional information: 83-year-old man presents from [facility] after accidentally pulling out his G-tube. driver's education instructor are unsure of when this was placed but they came relatively recently. Further history limited by patient dementia/brain injury. PD PAST MEDICAL HISTORY - Past Medical History Cardiovascular: High cholesterol - Past Surgical History Past Surgical History: No General: Hiatal hernia repair Ortho: Rotator cuff repair - Present Medications Home Medications: Ambulatory Orders Medication Instructions Recorded Confirmed No Known Home Medications 04/13/24 04/13/24 - Allergies Allergies/Adverse Reactions: Allergies Allergy/AdvReac Type Severity Reaction Status Date / Time Penicillins Allergy Unknown Verified 04/13/24 20:03 - Social History Does the pt smoke?: No Smoking Status: Never smoker Does the pt drink ETOH?: Yes Does the pt have substance abuse?: No - Immunizations Immunizations are current?: Yes - POLST Patient has POLST: No PD ED PE NORMAL - Vitals Vital signs reviewed: Yes - General General: No acute distress, Well developed/nourished, Other (alert, mentating at baseline, only able to give yes/no answers) - HEENT HEENT: Atraumatic, PERRL, EOMI - Neck Neck: Supple, no meningeal sign - Abdomen Abdomen: Non tender, Non distended, Other (g tube site with closed os. unable to pass 18fr catheter through the opening. it appears to have closed up. ) Results - Vitals Vitals: Oxygen O2 Source Mechanical ventilator PD Medical Decision Making - ED course ED course: 83yM p/w g tube malfunction after he pulled it out. unable to replace with the same size (18fr catheter) and we do not have smaller G tube available. plan for him to f/u in general surgery clinic for revision in the morning. Departure - Departure Disposition: 01 Home, Self Care Clinical Impression: PEG tube malfunction Condition: Stable Follow-Up: Patel Nowak MD [Provider Admit Priv/Credential] - Comments: Mr Sauceda was seen in the emergency department for evaluation after pulling his g tube out. The hole has completely closed up. Please follow-up with surgery clinic to have this replaced and return to the emergency department if you have any new or worsening symptoms or other concerns.
[2024-06-01 22:52] VITALS: BP 108/60; O2SAT 94
--- NOTE | 2024-06-02 03:13 | ED Physician Documentation ---
ED Addendum - Addendum Addendum: 06/02/24 03:10 Note that after I discharged the patient to follow up in surgery clinic, I got a call from Aly Haskins, medic regarding his family who requested he come back to [facility] to have G tube urgently revised in the OR over the weekend. I called Dr. Hoskins, our director of valuation surgeon who states this is not an emergent procedure, but after some discussion of patient's alimentary needs he agreed to have him admitted to medicine for IV fluids and labwork and to have him evaluate d for the OR Saturday 06/02. Dr. Hoskins requested that our ED staff call in the OR team at 6am. Patient will return here for admission to medicine with Dr. Hoskins consulting in, plan for OR Saturday 06/02 in AM.
== END 2024-06-01 22:54 | disposition home or self-care (01) ==
LOC: EDUNIT# → ED 22:25
DX: Z43.1 Encounter for attention to gastrostomy (principal)
CPT/HCPCS: 99283

== ENCOUNTER 2024-06-01 22:49 | Outpatient (CLI) | payer MEDICARE, OTHER | END 2024-06-01 22:50 | disposition home or self-care (01) | LOC: EMS 22:49 | PROVIDERS: ATTEND Emergency Medicine | DX: F03.90 Unspecified dementia, unspecified severity, without behavioral disturbance, psychotic disturbance, mood disturbance, and anxiety (principal); R41.0 Disorientation, unspecified | CPT/HCPCS: A0425; A0428 ==

== ENCOUNTER 2024-06-02 03:19 | Outpatient (CLI) | payer MEDICARE, OTHER | END 2024-06-02 23:59 | disposition critical access hospital (66) | LOC: EMS 03:19 | DX: T85.528A Displacement of other gastrointestinal prosthetic devices, implants and grafts, initial encounter (principal) | CPT/HCPCS: A0425; A0429 ==

== ENCOUNTER 2024-06-02 03:29 | Observation (INO) | payer MEDICARE, OTHER ==
--- NOTE | 2024-06-02 03:34 | ED Physician Documentation ---
History of Present Illness - Stated complaint Stated Complaint: PULLED OUT PEG TUBE - History obtained from History obtained from: EMS - Additonal information Additional information: 83yM with history of cardiac arrest in March with ROSC, G tube placement at [facility] (possibly in April per EMS/[facility] staff) presents bibems from [facility] after pulling his g tube out last night. it was unable to be replaced and he was sent back to [facility] to follow up in surgery clinic. however, family requested he undergo emergent g tube replacement this weekend therefore Dr. Hoskins was contacted and it was confirmed that he can go to the OR in the morning on Saturday 06/02. history limited by patient brain damage/dementia. PD PAST MEDICAL HISTORY - Past Medical History Cardiovascular: High cholesterol - Past Surgical History Past Surgical History: No General: Hiatal hernia repair Ortho: Rotator cuff repair - Present Medications Home Medications: Ambulatory Orders Medication Instructions Recorded Confirmed No Known Home Medications 04/13/24 04/13/24 - Allergies Allergies/Adverse Reactions: Allergies Allergy/AdvReac Type Severity Reaction Status Date / Time Penicillins Allergy Unknown Verified 06/01/24 22:40 - Social History Does the pt smoke?: No Smoking Status: Never smoker Does the pt drink ETOH?: Yes Does the pt have substance abuse?: No - Immunizations Immunizations are current?: Yes - POLST Patient has POLST: No PD ED PE NORMAL - Vitals Vital signs reviewed: Yes - General General: Other (alert, unable to answer questions appropriately) - HEENT HEENT: Atraumatic, PERRL, EOMI - Abdomen Abdomen: Non tender, Non distended, Other (g tube site completely closed off) Results - Vitals Vitals: Oxygen O2 Source Mechanical ventilator PD Medical Decision Making - ED course ED course: 83yM presents for new operative G tube placement. plan to call in OR crew at 6am. Dr. Hoskins confirmed over the phone with me that he will operate on 06/02. He requested admission to medicine for IV hydration and preoperative labwork. Departure - Departure Disposition: ED Place in Observation Clinical Impression: Gastrostomy tube dysfunction, Dysphagia Condition: Stable
[2024-06-02] MEDS: SODIUM CHLORIDE 0.9% 1,000 ML IV STA (03:46)
[2024-06-02 03:51] LABS: BASOPHILS % (AUTO) 0.3 %; EOSINOPHILS # (AUTO) 0.1 10^3/uL (0.0-0.7); HGB - HEMOGLOBIN 12.3 g/dL (14.0-18.0); LYMPHOCYTES # (AUTO) 1.3 10^3/uL (1.5-3.5); LYMPHOCYTES % (AUTO) 13.3 %; MEAN CORPUSCULAR HEMOGLOBIN 32.2 pg (27.0-31.0); MEAN CORPUSCULAR HGB CONC 33.2 g/dL (32.0-36.0); MEAN CORPUSCULAR VOLUME 96.9 fL (80.0-94.0); MEAN PLATELET VOLUME 9.9 fL (7.4-11.4); MONOCYTES # (AUTO) 0.7 10^3/uL (0.0-1.0); MONOCYTES % (AUTO) 7.3 %; NEUTROPHILS # (AUTO) 7.4 10^3/uL (1.5-6.6); NEUTROPHILS % (AUTO) 77.7 %; PLT - PLATELET COUNT 211 10^3/uL (130-450); RED BLOOD COUNT 3.82 10^6/uL (4.70-6.10); RED CELL DISTRIBUTION WIDTH 13.4 % (12.0-15.0); WHITE BLOOD COUNT 9.5 x10^3/uL (4.8-10.8)
[2024-06-02 04:06] LABS: BUN - BLOOD UREA NITROGEN 28 mg/dL (6-20); CALCIUM 8.9 mg/dL (8.5-10.3); CARBON DIOXIDE - CO2 34 mmol/L (21-32); CHLORIDE 106 mmol/L (101-111); CREATININE 0.6 mg/dL (0.6-1.3); GFR - MDRD 129 (>89); GLUCOSE 131 mg/dL (74-104); IONIZED CALCIUM IF INDICATED NO; POTASSIUM 3.5 mmol/L (3.5-4.5); SODIUM 146 mmol/L (135-145)
[2024-06-02] MEDS ORDERED: SODIUM CHLORIDE FLUSH 0.9% 10 ML SYRINGE IVP PRN (04:08)
[2024-06-02] MEDS ORDERED: ONDANSETRON 4 MG/2 ML VIAL IVP PRN (04:08)
--- NOTE | 2024-06-02 04:21 | HISTORY & PHYSICAL EXAMINATION ---
Chief Complaint - Chief Complaint Chief Complaint: pulled G tube History of Present Illness - History of Present Illness HPI Comment/Other: 83 y old male with PMH hyperlipidemia and cardiac arrest in march was brought in as he pulled G tube and need replacement. Pt is not able to provide any history so most of history from ER physician On presentation, pt afebrile Labs showed normal WBC and Na 146 As per ER physician, she consulted surgery ( Dr Hoskins) and plan is G tube placement today Hospitalist service was asked to admit this patient due to dysphagia and dislodged G tube History - Past Medical History Cardiovascular: reports: High cholesterol MRSA Hx?: No - Past Surgical History General: reports: Hiatal hernia repair Ortho: reports: Rotator cuff repair - POLST Patient has POLST: No Meds/Allgy - Allergies Allergies/Adverse Reactions: Allergies Allergy/AdvReac Type Severity Reaction Status Date / Time amoxicillin Allergy Unknown Verified 06/02/24 03:32 Penicillins Allergy Unknown Verified 06/01/24 22:40 Review of Systems - Other Findings Other Findings: unable to obtain due to AMS and clinical status Exam - Vital Signs Vital Signs: Vital Signs x48h Temp Pulse Resp BP Pulse Ox 06/02/24 03:33 37.2 C 106 H 16 131/77 H 93 - Physical Exam General Appearance: positive: No acute distress ENT: positive: ENT inspection nml Neck: positive: Nml inspection Cardiovascular: positive: Regular rate & rhythm Abdomen: positive: Non-tender Skin: positive: No rash Neurologic/Psychiatric: positive: Disoriented to place Conclusion/Plan - Lab Results Fish Bones: 06/02/24 03:45 06/02/24 03:45 - Other Other Results/Comments: A: Dysphagia Dislodged G tube H/O cardiac arrest Hyperlipidemia Plan: Admit in tele NPO G tube placement by Surgery today Start NS @ 100 cc/h Zofran iv prn for nausea Monitor electrolytes DVT prophylaxic: SCD Full code Pt is admitted as inpatient as more than 2 midnight stay is expected
[2024-06-02] MEDS: SODIUM CHLORIDE 0.9% 1,000 ML IV SCH (05:53)
--- NOTE | 2024-06-02 07:15 | ANESTHESIA ---
Pre-Anesthesia VS, & Labs - Diagnosis pulled out gastric tube, dysphagia - Procedure peg tub replacement Vital Signs: Temp Pulse Resp BP Pulse Ox O2 Flow Rate 36.8 C 104 H 16 118/76 94 06/02/24 05:24 06/02/24 05:24 06/02/24 05:24 06/02/24 05:24 06/02/24 05:24 Height: 5 ft 11 in Weight (kg): 78.1 kg Body Mass Index: 24.0 BMI Classification: Normal - NPO >8 hours - Lab Results Current Lab Results: Laboratory Tests 06/02/24 03:45: Sodium 146 H, Potassium 3.5, Chloride 106, Carbon Dioxide 34 H, Anion Gap 6.0, BUN 28 H, Creatinine 0.6, Estimated GFR (MDRD) 129, Glucose 131 H , Calcium 8.9, Ionized Calcium NO 06/02/24 03:45: WBC 9.5, RBC 3.82 L, Hgb 12.3 L, Hct 37.0 L, MCV 96.9 H, MCH 32.2 H, MCHC 33.2, RDW 13.4, Plt Count 211, MPV 9.9, Neut # (Auto) 7.4 H, Lymph # (Auto) 1.3 L, Trimble # (Auto) 0.7, Eos # (Auto) 0.1, Baso # (Auto) 0.0, Absolute Nucleated RBC 0.00, Nucleated RBC % 0.0 Fish Bones: 06/02/24 03:45 06/02/24 03:45 Home Medications and Allergies Home Medications: Ambulatory Orders Acetaminophen [Tylenol] 650 mg PEG Q4HR PRN 06/02/24 Acetaminophen [Tylenol] 650 mg WA Q4HR PRN 06/02/24 Bisacodyl Supp [Dulcolax Supp] 10 mg WA ONCE PRN 06/02/24 Hydrocortisone 1% Cream [Hydrocortisone] 1 applic TOP Q8HR PRN 06/02/24 Mineral Oil [Mineral Oil Enema] 1 ea RC ONCE PRN 06/02/24 RX: Atorvastatin Calcium 40 mg PEG HS 06/02/24 RX: Sennosides 2 tab PEG ONCE PRN 06/02/24 amLODIPine [Norvasc] 5 mg PEG HS 06/02/24 diphenhydrAMINE HCL [Itch Stopping] 1 applic TP Q8HR PRN 06/02/24 guaiFENesin [Giltuss Ex] 200 mg PEG Q8HR PRN 06/02/24 polyethylene glycoL 3350 [Miralax] 17 gm PEG DAILY 06/02/24 polyethylene glycoL 3350 [Miralax] 17 gm PEG ONCE PRN 06/02/24 Active Medications Sodium Chloride (Normal Saline 0.9%) 1,000 mls @ 100 mls/hr IV .Q10H STARR Last Admin: 06/02/24 05:53 Dose: 100 mls/hr Ondansetron HCl (Ondansetron 4 Mg/2 Ml Vial) 4 mg IVP Q6HR PRN PRN Reason: Nausea / Vomiting Sodium Chloride (Sodium Chloride Flush 0.9% 10 Ml Syringe) 10 ml IVP PRN PRN PRN Reason: NEEDED PER PROVIDER ORDERS Sodium Chloride (Sodium Chloride Flush 0.9% 10 Ml Syringe) 10 ml IVP 0100,0900,1700 [facility] Acetaminophen [Tylenol] 650 mg PEG Q4HR PRN 06/02/24 Acetaminophen [Tylenol] 650 mg WA Q4HR PRN 06/02/24 Atorvastatin Calcium 40 mg PEG HS 06/02/24 Bisacodyl Supp [Dulcolax Supp] 10 mg WA ONCE PRN 06/02/24 Hydrocortisone 1% Cream [Hydrocortisone] 1 applic TOP Q8HR PRN 06/02/24 Mineral Oil [Mineral Oil Enema] 1 ea RC ONCE PRN 06/02/24 Sennosides 2 tab PEG ONCE PRN 06/02/24 amLODIPine [Norvasc] 5 mg PEG HS 06/02/24 diphenhydrAMINE HCL [Itch Stopping] 1 applic TP Q8HR PRN 06/02/24 guaiFENesin [Giltuss Ex] 200 mg PEG Q8HR PRN 06/02/24 polyethylene glycoL 3350 [Miralax] 17 gm PEG DAILY 06/02/24 polyethylene glycoL 3350 [Miralax] 17 gm PEG ONCE PRN 06/02/24 Allergies/Adverse Reactions: Allergies Allergy/AdvReac Type Severity Reaction Status Date / Time amoxicillin Allergy Unknown Verified 06/02/24 03:32 Penicillins Allergy Unknown Verified 06/01/24 22:40 Anes History & Medical History - Anesthetic History Anesthesia Complications: reports: No previous complications - Medical History Cardiovascular: reports: High cholesterol Pulmonary: reports: Pneumonia Gastrointestinal: reports: Other Urinary: reports: None Neuro: reports: CVA Musculoskeletal: reports: Chronic back pain Endocrine/Autoimmune: reports: None Blood Disorders: reports: None Skin: reports: Other Smoking Status: Never smoker Other Past Medical History: glasses for sight, childhood pneumonia, rash on abdomen and back since April 14, 2024, antibiotic rash, sensitive skin, peg tube only for feeding, 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 (currently peg tube is out), states feelings of depression, Also states patient interested in taking low dose medication for feelings of depression, thrush - Surgical History General: reports: Hiatal hernia repair Orthopedic: reports: Rotator cuff repair Dermatologic: reports: Skin cancer surgery Exam General: No acute distress, Other (baseline dementia) Dental: WNL Mouth Opening: Greater than 4 Fingerbreadths Neck Mobility: Normal Mallampati classification: II Thyromental Distance: greater than 6 cm Cardiovascular: Regular rate Plan Anesthesia Type: Total IV Consent for Procedure(s) Verified and Reviewed: Yes Code Status: Attempt Resuscitation ASA classification: 3-Severe systemic disease Is this case an emergency?: Yes
[2024-06-02] MEDS ORDERED: PROPOFOL 500 MG/50 ML 500 MG/50 ML VIAL ONE (07:17)
[2024-06-02] MEDS ORDERED: LIDOCAINE-PF 2% 10 ML AMP SUBQ ONE (07:30)
--- NOTE | 2024-06-02 07:35 | PHARMACY PROGRESS NOTE ---
- Best Possible Medication History Admit Date and Time: 06/02/24 0408 Processed by: Nursing Secondary Source(s): Facility MAR as ONLY source As the person ultimately responsible for medication therapy, providers are able to order a medication from an existing home medication list in [facility] via the "Reconcile Routine" prior to Confirmation of that medication by marketing support specialist. Such practice is discouraged except when the physician, in their clinical judgment, deems that a medical need exists for a medication without regard to previous use.
[2024-06-02 08:26] LABS: BILIRUBIN,URINE NEGATIVE (NEGATIVE); GLUCOSE, URINE (UA) NEGATIVE (NEGATIVE); KETONES,URINE (UA) NEGATIVE (NEGATIVE); LEUKOCYTE ESTERASE, URINE NEGATIVE (NEGATIVE); NITRITE,URINE NEGATIVE (NEGATIVE); OCCULT BLOOD,URINE NEGATIVE (NEGATIVE); PROTEIN,URINE NEGATIVE (NEGATIVE); UROBILINOGEN,URINE 1 (NORMAL) E.U./dL (NORMAL)
[2024-06-02 08:28] LABS: CLARITY,URINE CLEAR (CLEAR)
[2024-06-02] MEDS: SODIUM CHLORIDE FLUSH 0.9% 10 ML SYRINGE IVP SCH (08:34)
[2024-06-02] MEDS ORDERED: ceFAZolin 1 GM VIAL ONE (09:02)
--- NOTE | 2024-06-02 09:06 | CONSULTATION NOTE ---
Referring Provider Consult Date: 06/02/24 Chief Complaint - Chief Complaint Chief Complaint: readmitted to ED for pulled out feeding tube History of Present Illness - History Obtained From Records Reviewed: yes History obtained from: ED MD and mostly chart review Exam Limitations: dementia and non verbal - History of Present Illness HPI Comment/Other: seen [facility] 04/13/2024 with gcs 3. intubated and transferred to [facility]. findings right designated broker stroke and cerebral amyloid angiopathy. PEG placed 04/23 and pulled out per pt 06/01. Pt seen in ED 06/01 and feeding tube was not replaced. he was sent back to his nursing facility with out pt follow planned with Dr Nowak. 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 (currently peg tube is out), states feelings of depression, Also states patient interested in taking low dose medication for feelings of depression, thrush - Past Surgical History General: reports: Hiatal hernia repair Ortho: reports: Rotator cuff repair Derm: reports: Skin cancer surgery - POLST Patient has POLST: No Meds/Allgy - Home Medications Home Medications: Ambulatory Orders Medication Instructions Recorded Confirmed Acetaminophen [Tylenol] 650 mg PEG Q4HR PRN 06/02/24 06/02/24 Acetaminophen [Tylenol] 650 mg MD Q4HR PRN 06/02/24 06/02/24 Atorvastatin Calcium 40 mg PEG HS 06/02/24 06/02/24 Bisacodyl Supp [Dulcolax Supp] 10 mg MD ONCE PRN 06/02/24 06/02/24 Hydrocortisone 1% Cream 1 applic TOP Q8HR PRN 06/02/24 06/02/24 [Hydrocortisone] Mineral Oil [Mineral Oil Enema] 1 ea RC ONCE PRN 06/02/24 06/02/24 Sennosides 2 tab PEG ONCE PRN 06/02/24 06/02/24 amLODIPine [Norvasc] 5 mg PEG HS 06/02/24 06/02/24 diphenhydrAMINE HCL [Itch Stopping] 1 applic TP Q8HR PRN 06/02/24 06/02/24 guaiFENesin [Giltuss Ex] 200 mg PEG Q8HR PRN 06/02/24 06/02/24 polyethylene glycoL 3350 [Miralax] 17 gm PEG DAILY 06/02/24 06/02/24 polyethylene glycoL 3350 [Miralax] 17 gm PEG ONCE PRN 06/02/24 06/02/24 - Allergies Allergies/Adverse Reactions: Allergies Allergy/AdvReac Type Severity Reaction Status Date / Time amoxicillin Allergy Unknown Verified 06/02/24 03:32 Penicillins Allergy Unknown Verified 06/01/24 22:40 Review of Systems - Other Findings Other Findings: 10 pt ros as above otherwise unremarkable Exam - Vital Signs Vital Signs: Vital Signs x48h Temp Pulse Pulse Resp BP BP Pulse Ox 06/02/24 08:36 36.6 C 104 H 22 110/69 98 06/02/24 05:24 36.8 C 104 H 16 118/76 94 06/02/24 04:30 103 H 16 122/65 95 06/02/24 04:00 106 H 16 124/76 94 06/02/24 03:33 37.2 C 106 H 16 131/77 H 93 - Physical Exam General Appearance: positive: No acute distress, Other (opens eyes to voice) Eyes Bilateral: positive: PERRL, EOMI ENT: positive: No signs of dehydration Neck: positive: No JVD, Trachea midline Respiratory: positive: No respiratory distress Cardiovascular: positive: Regular rate & rhythm Abdomen: positive: Non-tender, No distention, Other (epigastric g tube site close to the xyphoid) Neurologic/Psychiatric: positive: Other (opens eyes to voice) Conclusion/Plan - Problem List (1) Dysphagia Conclusion/Plan: right designated broker stroke 03/2024 and cerebral amyloid angiopathy/ dementia. family has requested feeding tube be replaced. awaiting formal consent from family. - Lab Results Fish Bones: 06/02/24 03:45 06/02/24 03:45
[2024-06-02] MEDS ORDERED: ePHEDrine 50 MG/ML VIAL IVP ONE (09:40)
[2024-06-02] MEDS ORDERED: ONDANSETRON 4 MG/2 ML VIAL ONE (09:40)
[2024-06-02] MEDS ORDERED: OXYTOCIN 10 UNIT/ML VIAL ONE ×2 (09:40→09:50)
[2024-06-02] MEDS ORDERED: ROPIVACAINE 0.5% PF 20 ML VIAL ONE (09:45)
[2024-06-02] MEDS ORDERED: DEXAMETHASONE 4 MG/ML VIAL ONE (09:50)
[2024-06-02] MEDS ORDERED: KETOROLAC 30 MG/ML VIAL ONE (10:07)
[2024-06-02] MEDS: COD LIVER OIL/ZINC OXIDE 113 GM TUBE TOP PRN (10:33)
[2024-06-02] MEDS ORDERED: LIDOCAINE 1%-EPI 1:100000 20 ML MDV ONE (10:53)
[2024-06-02] MEDS: LIDOCAINE 1%-EPI 1:100000 20 ML MDV SUBQ ONE ×2 (11:15)
--- NOTE | 2024-06-02 11:43 | OPERATIVE REPORT ---
Operative Report - General Admit Date: 06/02/24 Procedure Date: 06/02/24 Planned Procedure: feeding tube placement Pre-Op Diagnosis: stroke, dementia, dysphagia Procedure Performed: 22 fr chantel g tube placement under egd visualization Post Op Diagnosis: same/ desire for feeding tube - Procedure Note Primary Surgeon: adamaris auguste Anesthesia Technique: Local, MAC Pathology: not sent Estimated Blood Loss (mL): 0 Indications: as above Findings: chantel g tube placed into stomach under visualization Complications: none - Other Other Information/Narrative: The patient was prepped identified brought to the operating room. He was left on his patient bed. Monitored anesthesia care was given as well as IV sedation. The abdomen was prepped and draped. Antibiotics were not given. His epigastric feeding tube site close to the xiphoid was quite tight. A core of granulation tissue and scar tissue measuring approximately 4 to 5 mm was removed after local anesthetic was given. EGD scope was placed. He had copious oral and laryngeal thick creamy secretions which needed to be aspirated. Esophagus appeared normal. The G-tube site within the stomach was visualized. It was also quite tight. With gentle dilation with a hemostat under direct vision the G-tube site was opened to allow placement of a 22 [place] CHANTEL G-tube. The G-tube was insufflated with 10 mL of water. The stomach appeared to remain secured to the abdominal wall throughout the procedure. He tolerated the procedure well was brought to his patient room in stable preprocedure condition.
--- NOTE | 2024-06-02 12:13 | Discharge Plan ---
"Discharge Plan for SNF / [facility] - Discharge Plan And Transition Orders Problem Reviewed?: Yes Condition: Stable Allergies and Adverse Reactions: Allergies Allergy/AdvReac Type Severity Reaction Status Date / Time amoxicillin Allergy Unknown Verified 06/02/24 03:32 Penicillins Allergy Unknown Verified 06/01/24 22:40 Health Concerns: 83-year-old male with history significant for a cardiac arrest in March. You were brought into the hospital after he pulled out your G-tube. Surgeon was consulted by the ER provider, and they replaced your G-tube today Plan of Treatment: continue current treatments that she had been receiving at your facility Care Goals: continue current management - SNF / [facility] Transition Orders Admit to (Facility): [facility] Discharge Diagnosis: dysphagia, G-tube malfunction Medicare Certification Statement: I certify that [facility] Hospital alf care is medically necessary on a continuing basis for any of the conditions for which she/he is receiving care during hospitalization. Notify PCP of admission and forward orders to primary provider for signature. Other Notification Orders: Call PCP immediately if patient develops dyspnea, chest pain/tightness or edema. Additional Bowel Program Orders: If no BM after 2 days, nurse may give M.O.M. 30ml PO PRN and/or ducolax Supp 1 ND and/or LÓPEZ 250mg P.O., and/or senna 1-2 tabs PO. On day 3 nurse may give repeat above order until residents constipation is resolved. Medication Orders: PLEASE REFER TO THE DISCHARGE MEDICATION LIST. - Diet Type: Tube feeding - Therapies | Activity Activity: Wt Bearing as Tolerated"
--- NOTE | 2024-06-02 12:23 | DISCHARGE SUMMARY ---
"Discharge Summary Admit Date: 06/02/24 Discharge Date: 06/02/24 Discharging Provider: Alvarado Carl Code Status: Attempt Resuscitation Condition at Discharge: Stable - DIAGNOSES Admission Diagnoses: Dislodged gastrostomy tube Dysphagia History of sudden cardiac arrest Hyperlipidemia Discharge Diagnoses with Status of Each Condition: dislodged gastrostomy tube Resolved Dysphagiachronic History of sudden cardiac arrestchronic Hyperlipidemiachronic - HPI History of Present Illness: 83-year-old male with history of cardiac arrest in March 2024 with ROSC, G-tube placement at [facility] presented by EMS from [facility] after pulling his G-tube out - CONSULTS | PROCEDURES Consultations: General Surgery Procedures: replacement of G-tube - HOSPITAL COURSE Hospital Course: was admitted by overnight hospitalist, surgery was consulted by ER provider. G-tube replaced by surgeon - ALLERGIES Allergies/Adverse Reactions: Allergies Allergy/AdvReac Type Severity Reaction Status Date / Time amoxicillin Allergy Unknown Verified 06/02/24 03:32 Penicillins Allergy Unknown Verified 06/01/24 22:40 - MEDICATIONS Home Medications: Ambulatory Orders Medication Instructions Recorded Confirmed Acetaminophen [Tylenol] 650 mg PEG Q4HR PRN 06/02/24 06/02/24 Acetaminophen [Tylenol] 650 mg AL Q4HR PRN 06/02/24 06/02/24 Atorvastatin Calcium 40 mg PEG HS 06/02/24 06/02/24 Bisacodyl Supp [Dulcolax Supp] 10 mg AL ONCE PRN 06/02/24 06/02/24 Hydrocortisone 1% Cream 1 applic TOP Q8HR PRN 06/02/24 06/02/24 [Hydrocortisone] Mineral Oil [Mineral Oil Enema] 1 ea RC ONCE PRN 06/02/24 06/02/24 Sennosides 2 tab PEG ONCE PRN 06/02/24 06/02/24 amLODIPine [Norvasc] 5 mg PEG HS 06/02/24 06/02/24 diphenhydrAMINE HCL [Itch Stopping] 1 applic TP Q8HR PRN 06/02/24 06/02/24 guaiFENesin [Giltuss Ex] 200 mg PEG Q8HR PRN 06/02/24 06/02/24 polyethylene glycoL 3350 [Miralax] 17 gm PEG DAILY 06/02/24 06/02/24 polyethylene glycoL 3350 [Miralax] 17 gm PEG ONCE PRN 06/02/24 06/02/24 - PHYSICAL EXAM AT DISCHARGE General Appearance: positive: No acute distress Eyes Bilateral: positive: Normal inspection Neck: positive: Nml inspection Respiratory: positive: Chest non-tender Cardiovascular: positive: Regular rate & rhythm Abdomen: positive: Non-tender Skin: positive: Color nml Neurologic/Psychiatric: positive: Disoriented to place - LABS Result Diagrams: 06/02/24 03:45 06/02/24 03:45 - SEPSIS Current Stage of Sepsis: Ruled out - TIME SPENT Time Spent in Discharge (Minutes): 20"
[2024-06-02 14:22] VITALS: BP 113/66; O2SAT 95
== END 2024-06-02 13:42 ==
LOC: EDUNIT# → ED 03:29 → INTOOBSV 04:08 → MS2 04:08
PROVIDERS: ADMIT Internal Medicine; ATTEND Nurse Practitioner Acute Care
DX: T85.528A Displacement of other gastrointestinal prosthetic devices, implants and grafts, initial encounter (principal); R13.10 Dysphagia, unspecified; Z86.74 Personal history of sudden cardiac arrest; E78.5 Hyperlipidemia, unspecified; I69.354 Hemiplegia and hemiparesis following cerebral infarction affecting left non-dominant side; F03.90 Unspecified dementia, unspecified severity, without behavioral disturbance, psychotic disturbance, mood disturbance, and anxiety; R41.82 Altered mental status, unspecified; F32.A Depression, unspecified; R21 Rash and other nonspecific skin eruption
CPT/HCPCS: 36415; 43246; 80048; 81003; 85025; 99284; 99285; A9270; J2795; 81001; 87086

== ENCOUNTER 2024-06-02 13:49 | Outpatient (CLI) | payer MEDICARE, OTHER | END 2024-06-02 23:59 | LOC: EMS 13:49 | PROVIDERS: ATTEND Nurse Practitioner Acute Care | DX: T85.528A Displacement of other gastrointestinal prosthetic devices, implants and grafts, initial encounter (principal); R41.0 Disorientation, unspecified; I25.2 Old myocardial infarction; Z74.01 Bed confinement status | CPT/HCPCS: A0425; A0428 ==

== ENCOUNTER 2024-11-05 11:11 | Inpatient (IN) ==
--- NOTE | 2024-11-05 13:22 | ED Physician Documentation ---
PD HPI LOWER EXT INJURY Stated complaint Stated Complaint: LT HIP PX Chief complaint Chief Complaint: Ext Problem History obtained from History obtained from: Patient History of Present Illness PD HPI LOW EXT INJURY LOCATION: Left and Hip Type of injury: Fall (Patient states he lost balance and fell to the left side 2 days ago and has been unable to bear weight on the left hip due to pain. Range of motion hurts as well. Denies injury to the trunk or head. Not on blood thinners.) Where injury occurred: Home Timing - onset: How many days ago (2) Timing - duration: Days (2) Timing - details: Abrupt onset and Still present Worsened by: Moving, Palpating and Other (weight bearing) Contributing factors: No Anticoagulated Recently seen: Clinic (Seen at the walk-in clinic with x-ray done showing femoral neck fracture with shortening. Referred to the ER by private vehicle.) Meds/Allgy Home Medications Ambulatory Orders Medication Instructions Recorded Confirmed acetaminophen 650 mg rectal 650 mg CO Q4HR PRN Pain 1-4 06/02/24 11/05/24 suppository bisacodyl 10 mg rectal suppository 10 mg CO ONCE PRN Constipation 06/02/24 11/05/24 vit A 7,160 unit-vit C 113 mg-vit 1 tab PO BID 10/30/24 11/05/24 U-epjl-kzkkkr-lutein 0.5 mg tablet (Ocular Vitamins) vitamin B complex 1 tab feeding tube QDAY 10/30/24 11/05/24 Permanent Disabled Placard #1 ea 10/31/24 11/05/24 multivitamin-ferrous 1 tab PO QDAY 10/31/24 11/05/24 fumarate-folic acid 18 mg-400 mcg tablet (Centrum Complete) atorvastatin 20 mg tablet (Lipitor) 20 mg PO QPM #90 tabs 11/01/24 11/05/24 ibuprofen 200 mg tablet 200 mg PO Q6H PRN 11/05/24 11/05/24 Allergies Allergies Allergy/AdvReac Type Severity Reaction Status Date / Time amoxicillin Allergy Unknown Rash Verified 11/05/24 11:26 Penicillins Allergy Unknown Rash Verified 11/05/24 11:26 [facility] Medical History Medical History (Updated 11/05/24 @ 14:15 by Patel Sheridan MD) 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 Low back pain, unspecified Unspecified osteoarthritis, unspecified site Breast development in males Hypothyroidism, unspecified Unilateral primary osteoarthritis, unspecified knee COVID-19 Surgical History Surgical History (Updated 11/01/24 @ 15:18 by Lenny Agrawal MD) Gastrojejunal tube present Social History Social History Smoking Status: Never smoker Do you dip or chew tobacco?: No Do you vape?: No Level: Dependent Home Mobility Equipment: Wheeled walker Do you feel safe in your home environment?: Yes Suffered physical, verbal, emotional, or financial abuse?: No History of Abuse: No ETOH Use: Wine Frequency: Occasional Number of Amount/day: 1 POLST Patient has POLST: No Exam Constitutional normal general appearance and average body habitus HENMT normocephalic and head/scalp atraumatic Chest palpation of chest normal Gastrointestinal abdomen soft to palpation and nontender to palpation Back/Pelvis thoracic spine ROM normal and lumbar spine ROM normal Extremities The left hip is tender to palpation. Pain with rotational movement or i mpaction. Results Vitals Vitals: Vital Signs - 24 hr 11/05/24 11:27 Temperature 36.4 C L Temperature Source Temporal Artery Scan Pulse Rate 90 Respiratory Rate 18 Blood Pressure 121/70 O2 Saturation 97 O2 Source Room air Pain Intensity 3 Oxygen O2 Source Room air Labs Labs: Laboratory Tests 11/05/24 13:59 WBC 7.0 RBC 3.89 L Hgb 12.3 L Hct 37.4 L MCV 96.1 H MCH 31.6 H MCHC 32.9 RDW 13.0 Plt Count 317 MPV 8.8 Neut # (Auto) 5.0 Lymph # (Auto) 1.2 L [place] # (Auto) 0.5 Eos # (Auto) 0.3 Baso # (Auto) 0.0 Absolute Nucleated RBC 0.00 Nucleated RBC % 0.0 PT 14.0 H INR 1.3 H APTT 27.1 Sodium 140 Potassium 3.4 L Chloride 105 Carbon Dioxide 26 Anion Gap 9.0 BUN 16 Creatinine 0.9 Estimated GFR (MDRD) 81 L Glucose 235 H Calcium 9.0 Magnesium 2.1 Total Bilirubin 0.7 AST 16 ALT 19 Alkaline Phosphatase 81 Total Protein 7.3 Albumin 3.9 Globulin 3.4 Albumin/Globulin Ratio 1.1 Lipase 14 PD Medical Decision Making ED course Complexity details: reviewed results (Review of the x-ray done from the walk-in clinic shows a femoral neck fracture with impaction correction shortening. I will contact orthopedics. Primary basic labs will be done.) and d/w patient ED course: The patient has had a prior stroke approximately 1-1/2 years ago. Subsequent residual is right facial weakness and left arm and leg weakness. He is able to stand and walk pivot and transfer. His states he can go up stairs. So he still reasonably functional with use of the left hip and stabilization of this would be appropriate. I discussed this with them and they would certainly want to go ahead with repair. I talked with the surgeon orthopedic on-call who concurs and asked that the hospitalist team be involved. He asked for a CT scan. CT of the hip is ordered and I contacted the hospitalist team and ordered basic labs. The patient is not on any blood thinners. He does not have any significant comorbidities aside from the prior stroke. His EKG appears normal with a sinus rhythm. Labs are still pending. Discharge Plan Discharge Patient Disposition: [facility] DC/Xfer Condition: Stable Clinical Impression: Femoral neck fracture, Left hemiparesis, Fall from slip, trip, or stumble Prescriptions: No Action acetaminophen 650 MG suppository 650 mg CO Q4HR PRN (Reason: Pain 1-4) bisacodyl 10 MG suppository 10 mg CO ONCE PRN (Reason: Constipation) Rx Instructions: bowel care if senna not effective, initate on 4th day of no BM vitamin B complex Tablet 1 tab feeding tube QDAY Ocular Vitamins 7,160 unit- 113 mg-0.5 mg tablet 1 tab PO BID Centrum Complete 18-400 mg-mcg tablet 1 tab PO QDAY (DME) Permanent Disabled Placard [facility] See Rx Instructions .ROUTE .MEDSUPPLY Qty: 1 0RF Rx Instructions: As directed atorvastatin [Lipitor] 20 mg tablet 20 mg PO QPM Qty: 90 3RF ibuprofen 200 mg tablet 200 mg PO Q6H PRN Print Language: [place]
[2024-11-05 14:05] LABS: BASOPHILS % (AUTO) 0.6 %; EOSINOPHILS # (AUTO) 0.3 10^3/uL (0.0-0.7); EOSINOPHILS % (AUTO) 4.2 %; HCT - HEMATOCRIT 37.4 % (42.0-52.0); HGB - HEMOGLOBIN 12.3 g/dL (14.0-18.0); LYMPHOCYTES # (AUTO) 1.2 10^3/uL (1.5-3.5); LYMPHOCYTES % (AUTO) 16.8 %; MEAN CORPUSCULAR HEMOGLOBIN 31.6 pg (27.0-31.0); MEAN CORPUSCULAR HGB CONC 32.9 g/dL (32.0-36.0); MEAN CORPUSCULAR VOLUME 96.1 fL (80.0-94.0); MEAN PLATELET VOLUME 8.8 fL (7.4-11.4); MONOCYTES # (AUTO) 0.5 10^3/uL (0.0-1.0); MONOCYTES % (AUTO) 6.5 %; NEUTROPHILS % (AUTO) 71.8 %; PLT - PLATELET COUNT 317 10^3/uL (130-450); RED BLOOD COUNT 3.89 10^6/uL (4.70-6.10)
[2024-11-05 14:14] LABS: PARTIAL THROMBOPLASTIN TIME 27.1 secs (24.9-33.3)
[2024-11-05 14:19] LABS: INR 1.3 (0.8-1.2)
[2024-11-05 14:23] LABS: ALBUMIN 3.9 g/dL (3.2-5.5); ALBUMIN/GLOBULIN RATIO 1.1 (1.0-2.2); BILIRUBIN,TOTAL 0.7 mg/dL (0.2-1.0); CREATININE 0.9 mg/dL (0.6-1.3); MAGNESIUM 2.1 mg/dL (1.7-2.3); POTASSIUM 3.4 mmol/L (3.5-4.5); TOTAL PROTEIN 7.3 g/dL (6.4-8.9)
--- NOTE | 2024-11-05 14:42 | HISTORY & PHYSICAL EXAMINATION ---
<Statement entered by Alvarado Carl DNP - 11/05/24 17:55> Patient was seen and examined by me with a separate encounter after being seen by JIM[employer] student. I reviewed the student's documentation including patient history, physical examination, laboratory, imaging, clinical assessment and treatment plan. I have discussed the management of the patient with the student, and with the patient. There are no changes. Admitted to medicine, Ortho following. I have ordered scheduled Tylenol, as needed Dilaudid. Chief Complaint Chief Complaint Chief Complaint: left hip fracture History of Present Illness History Obtained From History obtained from: Self, Zahra, canceling machine operator Tanesha History of Present Illness HPI Comment/Other: Mr. Menjivar is an 83-year-old male with history of CVA and osteoporosis who presents today with left hip fracture. He is alert, cooperative, in good spirits, sitting in a wheelchair with his Zahra and canceling machine operator Tanesha present. He reports "sliding" out of his chair 2 days ago and landing on his left side. He was assisted back into his wheelchair by EMS but denied transport to ED due to not feeling any pain at the time. He states he hit his head on the seat of his wheelchair, but "not enough to matter". His and canceling machine operator are both surprised by this as he had previously denied head injury. All of them deny syncope or near syncope, vertigo, or loss of consciousness. He was able to move immediately after the fall but was unable to stand on his own. He denies chest pain, shortness of breath, congestion, recent viral illness, nausea, vomiting, diarrhea, numbness or tingling, saddle anesthesia, new or different urinary or fecal incontinence or retention. He reports initially not having any pain, but starting having left hip pain last night (11/04/24) which was not helped by OTC acetaminophen and ibuprofen. The worst pain was at 4am today which prevented him from sleeping. They presented to urgent care this morning due to the pain and a left hip fracture was seen on XR. They are here in the ED for orthopedic consult and to discuss surgery. His only complaint at this time is mild-moderate left hip pain. He previously had a stroke in March 2024 and just returned home 2 weeks ago from rehab skilled nursing. He reports returning to baseline after the stroke with no residual deficits, however his and canceling machine operator note left hand edema, decreased function, and purple skin discoloration. Mr. Menjivar maintains that these hand symptoms were present prior to his stroke and did not worsen or change after the stroke. He is able to stand and walk 2-3 steps without assistance, can stand and transfer. He feeds himself, bathes with minimal assistance once getting into shower/tub, and has urinary incontinence but is able to notify his canceling machine operator when he needs to urinate so he can get to the urinal. He does not use a catheter. He denies residual numbness or tingling. He reports his hearing and vision are both "good", he does wear corrective lenses. His and canceling machine operator state he takes Atorvastatin for cholesterol, low dose Aspirin due to the prior stroke, and daily vitamins (vitamin D3, AREDS 2, multivitamin). He denies prior heart attacks or heart conditions. He has had his tonsils removed at age 3, a right shoulder rotator cuff repair many years ago, and a hernia repair many years. His PCP is Dr. Agrawal, he most recently saw him last (11/01/24). He denies smoking history and any illicit drug use. He reports "occasional" alcohol, about 1 glass of wine a week or less. He denies ever having a period in his life in which he was a heavy or daily drinker. He currently lives at home with his Zahra. He has a canceling machine operator, Tanesha, who is there during the day but not at night. She is there every day of the week. She helps to manage his medications and medical care, as well as helping with hygiene and transfers. There are 2 steps inside the house to go from the main room to the bedroom, but he has been sleeping in the main room to avoid these. He is able to walk these stairs without assistance, his canceling machine operator will stand behind him in case support is needed. Meds/Allgy Home Medications Ambulatory Orders Medication Instructions Recorded Confirmed vit A 7,160 unit-vit C 113 mg-vit 1 tab PO BID 10/30/24 11/05/24 Z-tshy-nzfndr-lutein 0.5 mg tablet (Ocular Vitamins) vitamin B complex 1 tab PO QDAY 10/30/24 11/05/24 Permanent Disabled Placard #1 ea 10/31/24 11/05/24 multivitamin-ferrous 1 tab PO QDAY 10/31/24 11/05/24 fumarate-folic acid 18 mg-400 mcg tablet (Centrum Complete) atorvastatin 20 mg tablet (Lipitor) 20 mg PO QPM #90 tabs 11/01/24 11/05/24 acetaminophen 650 mg 650 mg PO Q4-5H PRN pain 1-4 11/05/24 11/05/24 tablet,extended release (8 Hour Pain Reliever) aspirin 81 mg chewable tablet 81 mg PO DAILY 11/05/24 11/05/24 (Aspirin Childrens) cholecalciferol (vitamin D3) 25 25 mcg PO DAILY 11/05/24 11/05/24 mcg (1,000 unit) capsule (Vitamin D3) ibuprofen 200 mg tablet 200 mg PO Q6H PRN pain 11/05/24 11/05/24 Allergies Allergies Allergy/AdvReac Type Severity Reaction Status Date / Time amoxicillin Allergy Unknown Rash Verified 11/05/24 11:26 Penicillins Allergy Unknown Rash Verified 11/05/24 11:26 PFS Medical History Medical History 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 Father Heart attack Sister Family history unknown Social History Social History Smoking Status: Never smoker Do you dip or chew tobacco?: No Do you vape?: No Level: Dependent Home Mobility Equipment: Wheeled walker Do you feel safe in your home environment?: Yes Suffered physical, verbal, emotional, or financial abuse?: No History of Abuse: No ETOH Use: Wine Frequency: Occasional Number of Amount/day: 1 POLST Patient has POLST: No Review of Systems Status of ROS: 10 or more systems reviewed and unremarkable except as noted in history and below Constitutional Reports: Weakness (s/p stroke) Genitourinary Reports: Incontinence Musculoskeletal Reports: Joint pain (L hip) Prior Level of Functionality: Mostly chair bound, able to stand, walk 2-3 steps or stairs, and stand to transfer. Dresses and bathes with some assistance. Exam Constitutional normal general appearance, no apparent distress, average body habitus, limitations noted (physical limitations) (wheelchair bound) and alert HENMT normocephalic, head/scalp atraumatic and hearing grossly normal bilaterally Eyes PERRL and EOMs intact bilaterally Neck/C-Spine visual inspection normal Lymph no lymphadenopathy noted Chest inspection of chest normal Respiratory breath sounds equal bilaterally, normal respiratory effort and clear to auscultation bilaterally Cardiovascular normal heart rate noted, regular rhythm noted, no murmur, no JVD, peripheral pulses 2+ throughout and no edema Gastrointestinal abdomen soft to palpation Genitourinary no CVA tenderness Extremities normal to inspection Neurology clean out driller II-XII intact Left hand edema, purplish discoloration, and decreased mobility secondary to CVA 03/2024 Skin skin color normal Conclusion/Plan Problem List (1) Femoral neck fracture: Plan: Mildly displaced and impacted subcapital fracture of the left femoral neck. Surgery scheduled for tomorrow 11/06/24 with orthopedics. Qualifiers: Encounter type: initial encounter Laterality: left (2) Fracture of left hip: Plan: Mildly displaced and impacted subcapital fracture of the left femoral neck. Surgery scheduled for tomorrow 11/06/24 with orthopedics. Qualifiers: Encounter type: initial encounter (3) Fall from slip, trip, or stumble: Plan: Mechanical "slip"/fall from wheelchair without syncope or loss of consciousness. Neurologically intact, no need for further workup at this time. Qualifiers: Encounter type: initial encounter Qualified Code(s): W01.0XXA - Fall on same level from slipping, tripping and stumbling without subsequent striking against object, initial encounter Lab Results Lab results reviewed: Yes 11/05/24 13:59 11/05/24 13:59 Diagnostic Imaging Results Diagnostic Imaging Results: positive Final report reviewed Diagnostic Imaging Results Comments: XR L Hip: 1.Mildly displaced and impacted subcapital fracture of the left femoral neck. 2.Moderate to large left hip effusion. 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 3.Large amount of stool in the rectum. Correlate for constipation or impaction. Core Measures Anticipated LOS I expect patient to be DC'd or transferred within 96 hours.: Yes DVT/VTE - Prophylaxis VTE/DVT Device ordered at admit?: No Not Ordered - Medical Reason: Not indicated VTE/DVT Prophylaxis med ordered at admit?: No Not Ordered - Medical Reason: Contraindicated (will start after surgery tomorrow 11/06/2024)
--- NOTE | 2024-11-05 15:23 | CT Report ---
PROCEDURE: CT Lower Extremity LT WO INDICATIONS: left hip fracture TECHNIQUE: Noncontrast 3-mm axial sections acquired from the distal tibial shaft to the talar dome, with coronal and sagittal reformats. For radiation dose reduction, the following was used: automated exposure c ontrol, adjustment of mA and/or kV according to patient size. COMPARISON: Left hip radiographs 11/05/2024 FINDINGS: Image quality: Excellent. Bones: There is a mildly displaced and impacted fracture of the left femoral neck involving the subc apital region. Distal fracture fragment is displaced proximally by approximately 4 mm and impacted as well as mild external rotated. No acute osseous fracture is seen in the remainder of the visualized pelvic bones and sacrum. Generalized osteopenia. Degenerative changes are seen in the sacroiliac join ts and included spine. Soft tissues: Moderate to large left hip effusion. Bulky heterotopic ossifications are seen superola teral to the left hip. No significant soft tissue hematoma is seen. Large amount stool seen in the re ctum. Prostate is mildly enlarged. Postoperative changes from bilateral inguinal hernia repairs. IMPRESSION: 1.Mildly displaced and impacted subcapital fracture of the left humeral neck. 2.Moderate to large left hip effusion. Multiple large chronic heterotopic ossifications are seen supe rolateral to the hip. 3.Large amount of stool in the rectum. Correlate for constipation or impaction. Reviewed by: Tray Kowalski MD on 11/05/2024 3:22 PM PST Approved by: Tray Kowalski MD on 11/05/2024 3:22 PM PST Station ID: [id number]
[2024-11-05] MEDS: HYDROmorphone 0.5 MG/0.5 ML SYRINGE IVP STA (15:24)
--- NOTE | 2024-11-05 16:35 | PHARMACY PROGRESS NOTE ---
Best Possible Medication History Admit Date and Time: 11/05/24 1454 Home Medications Medication Instructions Recorded Confirmed Type vit A 7,160 unit-vit C 113 mg-vit 1 tab PO BID 10/30/24 11/05/24 History T-fgmx-jwhrku-lutein 0.5 mg tablet (Ocular Vitamins) vitamin B complex 1 tab PO QDAY 10/30/24 11/05/24 History Permanent Disabled Placard #1 ea 10/31/24 11/05/24 Rx multivitamin-ferrous 1 tab PO QDAY 10/31/24 11/05/24 History fumarate-folic acid 18 mg-400 mcg tablet (Centrum Complete) atorvastatin 20 mg tablet (Lipitor) 20 mg PO QPM #90 tabs 11/01/24 11/05/24 Rx acetaminophen 650 mg 650 mg PO Q4-5H PRN pain 1-4 11/05/24 11/05/24 History tablet,extended release (8 Hour Pain Reliever) aspirin 81 mg chewable tablet 81 mg PO DAILY 11/05/24 11/05/24 History (Aspirin Childrens) cholecalciferol (vitamin D3) 25 25 mcg PO DAILY 11/05/24 11/05/24 History mcg (1,000 unit) capsule (Vitamin D3) ibuprofen 200 mg tablet 200 mg PO Q6H PRN pain 11/05/24 11/05/24 History Processed by: Pharmacy Medications reviewed in ED?: Yes Medication History completed: Yes Patient Interview: Completed Secondary Source(s): Pharmacy records and Insurance records [facility] Statement: As the person ultimately responsible for medication therapy, providers are able to order a medication from an existing home medication list in [facility] via the "Reconcile Routine" prior to Confirmation of that medication by linux support engineer. Such practice is discouraged except when the physician, in their clinical judgment, deems that a medical need exists for a medication without regard to previous use.
[2024-11-05] MEDS ORDERED: HYDROmorphone 0.5 MG/0.5 ML SYRINGE IVP PRN (16:49)
[2024-11-05] MEDS ORDERED: ONDANSETRON ODT 4 MG TABLET TL PRN (16:49)
[2024-11-05] MEDS ORDERED: ONDANSETRON 4 MG/2 ML VIAL IVP PRN (16:49)
[2024-11-05] MEDS ORDERED: SODIUM CHLORIDE FLUSH 0.9% 10 ML SYRINGE IVP PRN (16:49)
[2024-11-05] MEDS ORDERED: polyethylene glycoL 3350 17 GM PACKET PO PRN (17:32)
[2024-11-05] MEDS: CYCLOBENZAPRINE 10 MG TABLET PO SCH (17:53)
[2024-11-05] MEDS: SODIUM CHLORIDE FLUSH 0.9% 10 ML SYRINGE IVP SCH (17:53)
--- NOTE | 2024-11-05 20:32 | PREOP HISTORY & PHYSICAL ---
Surgical History & Physical Chief Complaint/HPI History of Present Illness: CC: LEFT Hip Pain HPI: 83yo M with a past medical history of CVA presents to the emergency department for left hip pain. It was reported that on November 03, 2024 that he slipped out of his wheelchair and landed on his left hip. He did not have pain in the hip but was unable to get back up into his wheelchair. EMS was called and they assisted him back into the chair. He did not have pain for the next 2 days however early this morning he started to have increasing left hip pain. He presented to the urgent care where radiographs were obtained. It was then that they discovered that he had left hip femoral neck fracture. He was then transported to the emergency department for further evaluation. On presentation in the emergency department he reports having left hip and left knee pain. He does not have significant pain at rest however with movement he describes having left hip and left knee pain. The history was taken between his and the patient himself. They report that he had a previous stroke in March 2024 but has only returned to home approximately 2 weeks ago. He has been in a rehab nursing facility since March. He has had some decreased function on the left side however he has been able to stand and take a few steps. It is unclear exactly how far he has been ambulating however there is been a significant decrease since his fall 2 days ago. His reports that he has been unable to ambulate or stand since the fall. Home Meds and Allergies Active Medications Generic Name Dose Route Start Last Admin Trade Name Freq PRN Reason Stop Dose Admin Acetaminophen 1,000 mg 11/05/24 22:00 Acetaminophen 500 Mg Tablet PO TID [facility] Cyclobenzaprine HCl 10 mg 11/05/24 17:00 11/05/24 17:53 Cyclobenzaprine 10 Mg Tablet PO 10 mg TID [facility] Administration Hydromorphone HCl 0.5 mg 11/05/24 16:49 Hydromorphone 0.5 Mg/0.5 Ml Syringe IVP Q2H PRN Severe Pain (Level 7-10) Ondansetron HCl 4 mg 11/05/24 16:49 Ondansetron Odt 4 Mg Tablet TL Q6HR PRN Nausea / Vomiting Ondansetron HCl 4 mg 11/05/24 16:49 Ondansetron 4 Mg/2 Ml Vial IVP Q6HR PRN Nausea / Vomiting Oxycodone HCl 5 mg 11/05/24 16:49 Oxycodone 5 Mg Tablet PO Q4HR PRN Pain 5 to 7 Polyethylene Glycol 17 gm 11/05/24 17:32 Polyethylene Glycol 3350 17 Gm Packet PO DAILY PRN Bowel Protocol Sodium Chloride 10 ml 11/05/24 16:49 Sodium Chloride Flush 0.9% 10 Ml Syringe IVP PRN PRN NEEDED PER PROVIDER ORDERS Sodium Chloride 10 ml 11/05/24 17:00 11/05/24 17:53 Sodium Chloride Flush 0.9% 10 Ml Syringe IVP 10 ml 0100,0900,1700 STARR Administration vit A 7,160 unit-vit C 113 mg-vit U-cgdj-msybqe-lutein 0.5 mg tablet (Ocular Vitamins) 1 tab PO BID 10/30/24 vitamin B complex 1 tab PO QDAY 10/30/24 Permanent Disabled Placard #1 ea 10/31/24 multivitamin-ferrous fumarate-folic acid 18 mg-400 mcg tablet (Centrum Complete) 1 tab PO QDAY 10/31/24 atorvastatin 20 mg tablet (Lipitor) 20 mg PO QPM #90 tabs 11/01/24 acetaminophen 650 mg tablet,extended release (8 Hour Pain Reliever) 650 mg PO Q4-5H PRN pain 1-4 11/05/24 aspirin 81 mg chewable tablet (Aspirin Childrens) 81 mg PO DAILY 11/05/24 cholecalciferol (vitamin D3) 25 mcg (1,000 unit) capsule (Vitamin D3) 25 mcg PO DAILY 11/05/24 ibuprofen 200 mg tablet 200 mg PO Q6H PRN pain 11/05/24 Allergies Allergy/AdvReac Type Severity Reaction Status Date / Time amoxicillin Allergy Unknown Rash Verified 11/05/24 11:26 Penicillins Allergy Unknown Rash Verified 11/05/24 11:26 Vital Signs O2 Saturation: 96 Patient Review Patient Review Pertinent Tests Reviewed [facility] Medical History Medical History 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 Father Heart attack Sister Family history unknown Social History Social History Smoking Status: Never smoker Second hand tobacco smoke exposure: No Do you dip or chew tobacco?: No Do you vape?: No Level: Assisted Home Mobility Equipment: Wheelchair Do you feel safe in your home environment?: Yes Suffered physical, verbal, emotional, or financial abuse?: No History of Abuse: No ETOH Use: Wine Frequency: Occasional Number of Amount/day: 1 POLST Patient has POLST: No Exam Exam LEFT Hip: Inspection: Patient is resting comfortably in bed. His hips are flexed to 60 degrees while he holds his knees up off the bed. No erythema, swelling, bruising, atrophy. ROM: He describes mild pain with range of motion exam. He he is unwilling to completely straighten his leg due to left knee pain. I was able to slightly internally and externally rotate the hip which causes mild hip pain. Patient remains significantly guarded with any range of motion attempts. Neurovascular exam: Fires q/h/ta/gc/ehl; SILT s/s/sp/dp/t, 2+ dp Imaging: Left hip x-rays on November 05, 2024: Left femoral neck fracture that appears to be impacted. Significant heterotopic ossification of the posterior superior aspect of the femoral neck. Left hip CT scan on November 05, 2024: Displaced and impacted left femoral neck fracture. Moderate left hip osteoarthritis. Heterotopic ossification is seen in the superior lateral left hip.Left knee radiographs on November 05, 2024: No fractures or dislocations. Moderate tricompartmental osteoarthritis. Assessment & Plan Assessment & Plan Assessment & Plan: 83yo M presents with likely acute on chronic left femoral neck fracture. The patient's history, physical exam and imaging findings are not consistent with a typical acute femoral neck fracture. He reports that he had a fall 2 days ago however did not have any pain until this morning. He also is resting during the exam in a position that is not typical for a femoral neck fracture. He is sitting with his legs flexed and he allows some mild movement without significant pain. He also has radiographs that demonstrate heterotopic ossification that would suggest there may have been a previous trauma. However his inability to ambulate over the last 2 days and specific fracture lines on the CT scan that appeared to be acute would make me believe that this is an acute on chronic femoral neck fracture. This was all shared with the patient and his . It was agreed upon that he should pursue surgical management for his best chances of returning to an ambulatory status. The risk, benefits and alternatives of the procedure were discussed with the patient to include bleeding, infection, damage surrounding structures, ongoing pain, ongoing stiffness, need for additional surgeries, hip dislocation and anesthesia risk such as heart attack, stroke and . The patient understood these risks and wanted move forward with the procedure. The patient was signed and consent was completed. He was consented for operative fixation of the left hip fracture. PLAN: Nonweightbearing left lower extremity N.p.o. at midnight for operation on November 06, 2024 Admit to the medicine team He will continue with aspirin after the surgery. The patient had the treatment plan explained, questions answered and seemed satisfied with the plan. There were no apparent barriers to communication. The documentation in this note may have been entered with the assistance of computer voice recognition and dictation software. Therefore, it may contain unintended errors in text, spelling, punctuation, or grammar. Jerel Stewart MD Orthopedic Surgeon
[2024-11-05] MEDS: ACETAMINOPHEN 500 MG TABLET PO SCH (21:09)
[2024-11-06 01:19] LABS: BILIRUBIN,URINE NEGATIVE (NEGATIVE); GLUCOSE, URINE (UA) NEGATIVE (NEGATIVE); KETONES,URINE (UA) NEGATIVE (NEGATIVE); LEUKOCYTE ESTERASE, URINE NEGATIVE (NEGATIVE); NITRITE,URINE NEGATIVE (NEGATIVE); OCCULT BLOOD,URINE NEGATIVE (NEGATIVE); PH,URINE 5.5 PH (5.0-7.5); PROTEIN,URINE NEGATIVE (NEGATIVE); UROBILINOGEN,URINE 0.2 (NORMAL) E.U./dL (NORMAL)
[2024-11-06 01:25] LABS: BACTERIA,URINE None Seen /HPF (None Seen); CLARITY,URINE CLEAR (CLEAR); RBC,URINE 0-5 /HPF (0-5); SQUAMOUS EPITHELIAL CELL,UR RARE Squamous (<= Few); WBC,URINE 0-3 /HPF (0-3)
[2024-11-06 01:26] LABS: CASTS, URINE 0-2 WBC Casts /LPF
[2024-11-06 05:20] LABS: BASOPHILS % (AUTO) 0.5 %; EOSINOPHILS # (AUTO) 0.3 10^3/uL (0.0-0.7); EOSINOPHILS % (AUTO) 4.7 %; HCT - HEMATOCRIT 36.1 % (42.0-52.0); HGB - HEMOGLOBIN 11.9 g/dL (14.0-18.0); LYMPHOCYTES # (AUTO) 1.2 10^3/uL (1.5-3.5); LYMPHOCYTES % (AUTO) 19.4 %; MEAN CORPUSCULAR HEMOGLOBIN 32.2 pg (27.0-31.0); MEAN CORPUSCULAR VOLUME 97.6 fL (80.0-94.0); MEAN PLATELET VOLUME 9.9 fL (7.4-11.4); MONOCYTES # (AUTO) 0.5 10^3/uL (0.0-1.0); MONOCYTES % (AUTO) 8.1 %; NEUTROPHILS # (AUTO) 4.2 10^3/uL (1.5-6.6); NEUTROPHILS % (AUTO) 67.1 %; PLT - PLATELET COUNT 224 10^3/uL (130-450); RED CELL DISTRIBUTION WIDTH 12.7 % (12.0-15.0); WHITE BLOOD COUNT 6.2 x10^3/uL (4.8-10.8)
[2024-11-06 05:32] LABS: CALCIUM 8.8 mg/dL (8.5-10.3); CREATININE 0.9 mg/dL (0.6-1.3); POTASSIUM 3.8 mmol/L (3.5-4.5)
[2024-11-06 05:49] LABS: PLATELET ESTIMATE, MANUAL NORMAL (130-450,000) (NORMAL); PLATELET MORPHOLOGY NORMAL APPEARANCE (NORMAL)
--- NOTE | 2024-11-06 08:49 | XRAY Report ---
PROCEDURE: XR Knee 3V LT INDICATIONS: pain, fall TECHNIQUE: 3 views of the knee(s) were acquired. COMPARISON: None. FINDINGS: Bones: There is a coronally oriented fracture through the anterior aspect of the medial femoral condy le seen on sunrise view. The trabecular pattern in the tibial epiphysis region is also slightly irreg ular. This is likely related to degeneration, but impacted fracture is not excluded Joints: Moderate patellofemoral and mild tibiofemoral degenerative change appreciated. No effusion. Soft tissues: Unremarkable. IMPRESSION: Nondisplaced fracture anterior medial femoral condyle. Consider CT Reviewed by: Patel Tam MD on 11/06/2024 8:48 AM PST Approved by: Patel Tam MD on 11/06/2024 8:48 AM PST Station ID: [id number]
--- NOTE | 2024-11-06 10:10 | ANESTHESIA PROCEDURE NOTE ---
Pre-Anesthesia VS, & Labs Diagnosis Surgical Diagnosis:: L hip fx Procedure Procedure: L flavia hip arthroplasty Vitals Vital Signs: Temp Pulse Resp BP Pulse Ox O2 Flow Rate 36.7 C 87 16 108/55 L 97 96 11/06/24 08:13 11/06/24 08:13 11/06/24 08:13 11/06/24 08:13 11/06/24 08:13 11/05/24 21:00 NPO NPO: >8 hours Lab Results Current Lab Results: Laboratory Tests 11/06/24 05:04: WBC 6.2, RBC 3.70 L, Hgb 11.9 L, Hct 36.1 L, MCV 97.6 H, MCH 32.2 H, MCHC 33.0, RDW 12.7, Plt Count 224, MPV 9.9, Neut # (Auto) 4.2, Lymph # (Auto) 1.2 L, [place] # (Auto) 0.5, Eos # (Auto) 0.3, Baso # (Auto) 0.0, Absolute Nucleated RBC 0.00, Nucleated RBC % 0.0, Platelet Estimate NORMAL (130-450,000), Platelet Morphology NORMAL APPEARANCE, Sodium 141, Potassium 3.8, Chloride 108, Carbon Dioxide 27, Anion Gap 6.0, BUN 15, Creatinine 0.9, Estimated GFR (MDRD) 81 L, Glucose 113 H, Calcium 8.8 11/05/24 13:59: WBC 7.0, RBC 3.89 L, Hgb 12.3 L, Hct 37.4 L, MCV 96.1 H, MCH 31.6 H, MCHC 32.9, RDW 13.0, Plt Count 317, MPV 8.8, Neut # (Auto) 5.0, Lymph # (Auto) 1.2 L, [place] # (Auto) 0.5, Eos # (Auto) 0.3, Baso # (Auto) 0.0, Absolute Nucleated RBC 0.00, Nucleated RBC % 0.0, PT 14.0 H, INR 1.3 H, APTT 27.1, Sodium 140, Potassium 3.4 L, Chloride 105, Carbon Dioxide 26, Anion Gap 9.0, BUN 16, Creatinine 0.9, Estimated GFR (MDRD) 81 L, Glucose 235 H, Calcium 9.0, Magnesium 2.1, Total Bilirubin 0.7, AST 16, ALT 19, Alkaline Phosphatase 81, Total Protein 7.3, Albumin 3.9, Globulin 3.4, Albumin/Globulin Ratio 1.1, Lipase 14 Lab results reviewed: Yes 11/06/24 05:04 11/06/24 05:04 Meds/Allgy Home Medications Ambulatory Orders Medication Instructions Recorded Confirmed vit A 7,160 unit-vit C 113 mg-vit 1 tab PO BID 10/30/24 11/05/24 F-dehv-fdodac-lutein 0.5 mg tablet (Ocular Vitamins) vitamin B complex 1 tab PO QDAY 10/30/24 11/05/24 Permanent Disabled Placard #1 ea 10/31/24 11/05/24 multivitamin-ferrous 1 tab PO QDAY 10/31/24 11/05/24 fumarate-folic acid 18 mg-400 mcg tablet (Centrum Complete) atorvastatin 20 mg tablet (Lipitor) 20 mg PO QPM #90 tabs 11/01/24 11/05/24 acetaminophen 650 mg 650 mg PO Q4-5H PRN pain 1-4 11/05/24 11/05/24 tablet,extended release (8 Hour Pain Reliever) aspirin 81 mg chewable tablet 81 mg PO DAILY 11/05/24 11/05/24 (Aspirin Childrens) cholecalciferol (vitamin D3) 25 25 mcg PO DAILY 11/05/24 11/05/24 mcg (1,000 unit) capsule (Vitamin D3) ibuprofen 200 mg tablet 200 mg PO Q6H PRN pain 11/05/24 11/05/24 Allergies Allergies Allergy/AdvReac Type Severity Reaction Status Date / Time amoxicillin Allergy Unknown Rash Verified 11/05/24 11:26 Penicillins Allergy Unknown Rash Verified 11/05/24 11:26 [facility] Medical History Medical History 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 Father Heart attack Sister Family history unknown Social History Social History Smoking Status: Never smoker Second hand tobacco smoke exposure: No Do you dip or chew tobacco?: No Do you vape?: No Level: Assisted Home Mobility Equipment: Wheelchair Do you feel safe in your home environment?: Yes Suffered physical, verbal, emotional, or financial abuse?: No History of Abuse: No ETOH Use: Wine Frequency: Occasional Number of Amount/day: 1 POLST Patient has POLST: No Anesthesia Exam (Expanded) Exam General: Alert, Oriented x3 and Cooperative Dental: Partials Lower (removed (teeth 22-24)) Mouth Openin Fingerbreadth Neck Mobility: Normal Mallampati classification: III Thyromental Distance: 4-6 cm Respiratory: Lungs clear, Normal breath sounds and No respiratory distress Cardiovascular: Regular rate (NSR EKG 11/05/24) Abdomen: Other (G tube present) Extremities: Other (L sided weakness t/o) Neurological: Other (ambulated with crutches prior to fall r/t L weakness. L hand with contractures and atrophy, left sided facial droop. Denies any difficulty swallowing or GERD) Mental/Cognitive Status: Alert/Oriented X3 and Normal for patient Cognitive Status: Within normal limits Plan Problem List (1) Femoral neck fracture: Plan: Mildly displaced and impacted subcapital fracture of the left femoral neck. Surgery scheduled for tomorrow 11/06/24 with orthopedics. Qualifiers: Encounter type: initial encounter Laterality: left (2) Fracture of left hip: Plan: Mildly displaced and impacted subcapital fracture of the left femoral neck. Surgery scheduled for tomorrow 11/06/24 with orthopedics. Qualifiers: Encounter type: initial encounter (3) Fall from slip, trip, or stumble: Plan: Mechanical "slip"/fall from wheelchair without syncope or loss of consciousness. Neurologically intact, no need for further workup at this time. Qualifiers: Encounter type: initial encounter Qualified Code(s): W01.0XXA - Fall on same level from slipping, tripping and stumbling without subsequent striking against object, initial encounter Plan Anesthesia Type: General and Spinal Consent for Procedure(s) Verified and Reviewed: Yes Code Status: Attempt Resuscitation ASA Classification ASA classification: 3-Severe systemic disease Is this case an emergency?: No
[2024-11-06] MEDS ORDERED: PROPOFOL 500 MG/50 ML 500 MG/50 ML VIAL ONE (10:51)
[2024-11-06] MEDS ORDERED: LIDOCAINE-PF 2% 10 ML AMP SUBQ ONE (10:53)
[2024-11-06] MEDS ORDERED: BUPIVACAINE 0.5% PF 10 ML VIAL ONE ×2 (10:53→11:51)
--- NOTE | 2024-11-06 11:23 | PROVIDER PROGRESS NOTE ---
Subjective Prog Note Date Prog Note Date: 11/06/24 Prog Note Time: 11:19 Subjective Pt reports feeling: No change Subjective: Mr. Menjivar is doing well, laying on his right side comfortably. He states he slept fairly poorly due to left leg cramping while laying on his back, however the discomfort has largely resolved after rotating to his side. He denies chest pain, shortness of breath, back pain, fever, headache, dizziness, confusion. He is alert and oriented to self and place. He is not oriented to date or day of week, however he and his agreed yesterday that he never knows the date since retiring. He has mild pain in left hip and left knee, which has not required any narcotics for management. He is able to straighten his right leg while laying on his side, however he is unable to straighten his left leg due to pain. This is consistent with physical exam by Orthopedic surgeon yesterday. Bilateral foot dorsiflexion and plantarflexion are normal. He is still amenable to surgery and is looking forward to eating dinner and apples as soon as he is allowed to eat again. No concerns or questions at this time. Current Medications Current Medications Current Medications: Current Medications Generic Name Dose Route Start Last Admin Trade Name Freq PRN Reason Stop Dose Admin Acetaminophen 1,000 mg 11/05/24 22:00 11/06/24 05:10 Acetaminophen 500 Mg Tablet PO 1,000 mg TID STARR Administration Cyclobenzaprine HCl 10 mg 11/05/24 17:00 11/06/24 05:09 Cyclobenzaprine 10 Mg Tablet PO 10 mg TID STARR Administration Enoxaparin Sodium 40 mg 11/07/24 09:00 Enoxaparin 40 Mg/0.4 Ml Syringe SUBQ DAILY [facility] Hydromorphone HCl 0.5 mg 11/05/24 16:49 Hydromorphone 0.5 Mg/0.5 Ml Syringe IVP Q2H PRN Severe Pain (Level 7-10) Ondansetron HCl 4 mg 11/05/24 16:49 Ondansetron Odt 4 Mg Tablet TL Q6HR PRN Nausea / Vomiting Ondansetron HCl 4 mg 11/05/24 16:49 Ondansetron 4 Mg/2 Ml Vial IVP Q6HR PRN Nausea / Vomiting Oxycodone HCl 5 mg 11/05/24 16:49 Oxycodone 5 Mg Tablet PO Q4HR PRN Pain 5 to 7 Polyethylene Glycol 17 gm 11/05/24 17:32 Polyethylene Glycol 3350 17 Gm Packet PO DAILY PRN Bowel Protocol Sodium Chloride 10 ml 11/05/24 16:49 Sodium Chloride Flush 0.9% 10 Ml Syringe IVP PRN PRN NEEDED PER PROVIDER ORDERS Sodium Chloride 10 ml 11/05/24 17:00 11/06/24 09:27 Sodium Chloride Flush 0.9% 10 Ml Syringe IVP 10 ml 0100,0900,1700 STARR Administration Objective Vital Signs/Intake & Output Reviewed Vital Signs: Yes Vital Signs: Vital Signs x48h Temp Pulse Resp BP Pulse Ox 11/06/24 08:13 36.7 C 87 16 108/55 L 97 11/06/24 03:30 36.6 C 84 20 116/60 95 Intake & Output: Intake & Output 11/03/24 11/04/24 11/05/24 11/06/24 23:59 23:59 23:59 23:59 Intake Total 416 / 416 Output Total 550 / 550 Balance 416 / 416 -550 / -550 Weight (kg) 74.5 kg Objective General Appearance: positive No acute distress and Alert Eyes Bilateral: positive PERRL ENT: positive ENT inspection nml Neck: positive Nml inspection and No JVD Respiratory: positive Chest non-tender, No respiratory distress and Breath sounds nml Cardiovascular: positive Regular rate & rhythm Abdomen: positive Non-tender and Nml bowel sounds Back: positive Nml inspection Skin: positive Color nml, No rash and Dry Extremities: positive Non-tender (Left hip and knee tenderness) and No pedal edema; negative Full ROM (Left leg extension limited due to pain) or Calf tenderness Neurologic/Psychiatric: positive Sensation nml, Mood/affect nml and Disoriented to time (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, 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); negative Oriented x3 (Oriented x 2 (baseline)) Lab Results 11/06/24 05:04 11/06/24 05:04 Other Labs: Lab Results x24hrs 11/06/24 11/06/24 11/05/24 Range/Units 05:04 01:05 13:59 WBC 6.2 7.0 (4.8-10.8) x10^3/uL RBC 3.70 L 3.89 L (4.70-6.10) 10^6/uL Hgb 11.9 L 12.3 L (14.0-18.0) g/dL Hct 36.1 L 37.4 L (42.0-52.0) % MCV 97.6 H 96.1 H (80.0-94.0) fL MCH 32.2 H 31.6 H (27.0-31.0) pg MCHC 33.0 32.9 (32.0-36.0) g/dL RDW 12.7 13.0 (12.0-15.0) % Plt Count 224 317 (130-450) 10^3/uL MPV 9.9 8.8 (7.4-11.4) fL Neut # (Auto) 4.2 5.0 (1.5-6.6) 10^3/uL Lymph # (Auto) 1.2 L 1.2 L (1.5-3.5) 10^3/uL [place] # (Auto) 0.5 0.5 (0.0-1.0) 10^3/uL Eos # (Auto) 0.3 0.3 (0.0-0.7) 10^3/uL Baso # (Auto) 0.0 0.0 (0.0-0.1) 10^3/uL Absolute Nucleated RBC 0.00 0.00 x10^3/uL Nucleated RBC % 0.0 0.0 /100WBC Platelet Estimate NORMAL (130-450,000) (NORMAL) Platelet Morphology NORMAL APPEARANCE (NORMAL) PT 14.0 H (9.9-12.6) secs INR 1.3 H (0.8-1.2) APTT 27.1 (24.9-33.3) secs Sodium 141 140 (135-145) mmol/L Potassium 3.8 3.4 L (3.5-4.5) mmol/L Chloride 108 105 (101-111) mmol/L Carbon Dioxide 27 26 (21-32) mmol/L Anion Gap 6.0 9.0 (6-13) BUN 15 16 (6-20) mg/dL Creatinine 0.9 0.9 (0.6-1.3) mg/dL Estimated GFR (MDRD) 81 L 81 L (>89) Glucose 113 H 235 H (74-104) mg/dL Calcium 8.8 9.0 (8.5-10.3) mg/dL Magnesium 2.1 (1.7-2.3) mg/dL Total Bilirubin 0.7 (0.2-1.0) mg/dL AST 16 (10-42) IU/L ALT 19 (10-60) IU/L Alkaline Phosphatase 81 (42-121) IU/L Total Protein 7.3 (6.4-8.9) g/dL Albumin 3.9 (3.2-5.5) g/dL Globulin 3.4 (2.1-4.2) g/dL Albumin/Globulin Ratio 1.1 (1.0-2.2) Lipase 14 (11-82) U/L Urine Color YELLOW Urine Clarity CLEAR (CLEAR) Urine pH 5.5 (5.0-7.5) PH Ur Specific [place] 1.010 (1.002-1.030) Urine Protein NEGATIVE (NEGATIVE) mg/dL Urine Glucose (UA) NEGATIVE (NEGATIVE) mg/dL Urine Ketones NEGATIVE (NEGATIVE) mg/dL Urine Occult Blood NEGATIVE (NEGATIVE) Urine Nitrite NEGATIVE (NEGATIVE) Urine Bilirubin NEGATIVE (NEGATIVE) Urine Urobilinogen 0.2 (NORMAL) (NORMAL) E.U./dL Ur Leukocyte Esterase NEGATIVE (NEGATIVE) Urine RBC 0-5 (0-5) /HPF Urine WBC 0-3 (0-3) /HPF Ur Squamous Epith Cells RARE Squamous (<= Few) Urine Bacteria None Seen (None Seen) /HPF Urine Casts 0-2 WBC Casts /LPF Urine Culture Comments NOT INDICATED ABX Reporting Has patient been on IV antibiotics over the past 48 hours?: No Assessment/Plan Problem List (1) Femoral neck fracture: Impression: No changes overnight. Pain is well controlled on scheduled Tylenol and Flexeril. We will continue this and PRN oxycodone and dilaudid. Scheduled for surgery with orthopedics this afternoon. Qualifiers: Encounter type: initial encounter Laterality: left (2) Fracture of left hip: Impression: No changes overnight. Pain is well controlled on scheduled Tylenol and Flexeril. We will continue this and PRN oxycodone and dilaudid. Scheduled for surgery with orthopedics this afternoon. Qualifiers: Encounter type: initial encounter (3) Fall from slip, trip, or stumble: Impression: Mechanical "slip"/fall from wheelchair without syncope or loss of consciousness. Neurologically intact, no need for further workup at this time. Qualifiers: Encounter type: initial encounter Qualified Code(s): W01.0XXA - Fall on same level from slipping, tripping and stumbling without subsequent striking against object, initial encounter
[2024-11-06] MEDS ORDERED: BUPIVACAINE 0.25% PF 30 ML VIAL ONE (11:26)
[2024-11-06] MEDS ORDERED: VANCOMYCIN 1 GM VIAL ONE (11:27)
[2024-11-06] MEDS ORDERED: fentaNYL 100 MCG/2 ML VIAL ONE ×2 (11:28→16:08)
[2024-11-06] MEDS ORDERED: MIDAZOLAM 2 MG/2 ML VIAL ONE (11:28)
[2024-11-06] MEDS ORDERED: ceFAZolin 1 GM VIAL ONE (11:51)
[2024-11-06] MEDS ORDERED: SODIUM CHLORIDE 0.9% 10 ML VIAL IVP ONE ×2 (12:05→12:53)
[2024-11-06] MEDS ORDERED: ePHEDrine 50 MG/ML VIAL IVP ONE (12:05)
[2024-11-06] MEDS ORDERED: PHENYLEPHRINE HCL 0.5 MG/5 ML AMPULE ONE ×3 (12:05→13:44)
[2024-11-06] MEDS ORDERED: ONDANSETRON 4 MG/2 ML VIAL IVP PRN (12:50)
[2024-11-06] MEDS ORDERED: HYDROmorphone 0.5 MG/0.5 ML SYRINGE IVP PRN (12:50)
[2024-11-06] MEDS ORDERED: NALOXONE 0.4 MG/ML VIAL IVP PRN (12:50)
[2024-11-06] MEDS ORDERED: ATROPINE ABBOJECT 1 MG/10 ML SYRINGE IVP PRN (12:50)
[2024-11-06] MEDS ORDERED: ePHEDrine 50 MG/ML VIAL IVP PRN (12:50)
[2024-11-06] MEDS ORDERED: METOCLOPRAMIDE 10 MG/2 ML VIAL IVP PRN (12:50)
[2024-11-06] MEDS ORDERED: MORPHINE 2 MG/ML CARPUJECT IVP PRN (12:50)
[2024-11-06] MEDS ORDERED: PROPOFOL 200 MG/20 ML VIAL IVP ONE (14:33)
[2024-11-06] MEDS ORDERED: PHENYLEPHRINE 10 MG/ML VIAL ONE (14:33)
[2024-11-06] MEDS ORDERED: TRANEXAMIC ACID 1,000 MG/10 ML VIAL ONE (14:48)
[2024-11-06] MEDS: LACTATED RINGERS 1,000 ML IV SCH (15:49)
[2024-11-06] MEDS: fentaNYL 100 MCG/2 ML VIAL IVP PRN (16:11)
--- NOTE | 2024-11-06 16:38 | OPERATIVE REPORT ---
Operative Report General Admit Date: 11/05/24 Procedure Data: Operation Date: 11/06/24 12:00 Proposed Procedures p Hip Hemiprosthesis(Left) - Jerel Stewart MD Actual Procedures p Hip Hemiprosthesis(Left) - Jerel Stewart MD Anesthesia Type Spinal Case Staff Anesthesia Provider: Sixto Farah Anesthesia Provider: Chika Conley Assisting Provider: Bhupinder Chicas Assisting Provider: Amy Patrick Rep: Yaa Nance (norman and neph).. Case Times Into Recovery: 11/06/24 15:49 Procedure Start: 11/06/24 13:04 Procedure End: 11/06/24 15:44 Time out: 11/06/24 13:04 Implants KIT TOTAL HIP PREP PALACOS R PRO 80G BONE CEMENT INVIS DIST CENT SZ 10MM TANDEM BIPOLAR COCR SHELL COCR 09/01 FEM HEAD 28 + 0 SYN AGA FRM COMP SZ 12 Other Other Information/Narrative: Op Note Date of Procedure: 11/06/2024 Pre-Op Diagnosis:LEFT Closed, displaced femoral neck fracture Post-Op Diagnosis: LEFT Closed, displaced femoral neck fracture Procedure LEFT Yunior Hip Arthroplasty Surgeon: Jerel Stewart MD Co-Surgeon: Bhupinder Chicas MD Slip Laster in OR: MICHELLE Bills Physician Slip Laster was used throughout the entirety of the case. This operation could not have been safely performed (without compromising the technical results or length of the procedure) without the assistance of a skilled surgical appliance fitter. A surgical appliance fitter was medically necessary for room set up, patient positioning, draping, retraction, visualization, reduction, fixation and closure. They were essential for the success of the case. Anesthesia Type: General EBL: 200cc Urine Output : NA Specimens Removed: None Complications: None Implants/Grafts: 53x28 Bipolar Shell28 +0 COCR Femoral Head12 High Offset Syndergy Cemented Stem 10 mm distal centralizer Drains: No lines, drains, or airways are recorded for this episode. 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 They were placed in the LEFT lateral position with axillary roll p laced and padding under and in between the legs. SCD device placed on the nonoperative leg. Standard prep and drape was done and groin isolation drape placed. Timeout procedure performed. Posterior approach to the hip was used. Incision was made centered over the greater trochanter proximally 10 cm in length. Incision carried down through skin and subcutaneous fat to the fascia elmo. Hemostasis achieved. Fascia elmo opened gluteus muscle divided. Charnley retractor placed. Capsule and external rotators were removed from the posterior femur in an L-shaped fashion as a single layer and tagged with a #5 Tycron suture in the external rotators. Femoral fracture extended distal to our usual neck cut. The head fragment removed with a corkscrew and measured to be 53 mm. Acetabulum was cleared of any bony debris. Posterior capsule was removed from the inner aspect of the greater trochanter and preserved as a superior flap for later repair. Box osteotome initially used followed by canal finder and lateralizing reamer. Broaching of the canal was done after suctioning the canal. Size 12 broach had excellent fit with axial stability. WHen we flexed and internally rotated the h ip he would dislocate only at 20 degrees of internal rotation. So we trialed a high offset stem. THis gave increased stability. Trialing was done with proper head size and size 0 spacer provided excellent stability with full extension and external rotation and internal rotation, hip flexion to greater than 45. Leg lengths appeared appropriate at the knees and heel. Trials were removed and irrigation and suctioning was done. Final stem was tapped into place, trunnion cleaned and dried after repeat trialing. Final bipolar head and spacer tapped into place and hip reduced. Posterior capsule closed with #5 Tycron sutures. External rotators close to the posterior inner aspect of the greater trochanter through 2 drill holes pulling the previously placed tagging sutures through and tying a knot. Fascia elmo closed with #1 Vicryl interrupted sutures distally and running proximally. Skin closed with #1 Vicryl deep as needed and 2-0 Vicryl and gerson in skin. Sterile dressing placed. Patient transferred to recovery room in stable condition. Plan: Weightbearing as tolerated on extremity. Posterior hip precautions. Follow-up in 2 weeks for wound check and staple removal. DVT prophylaxis. Physical therapy. Jerel Stewart MD
[2024-11-06] MEDS ORDERED: fentaNYL 250 MCG/5 ML VIAL IVP PRN (16:54)
--- NOTE | 2024-11-06 17:02 | ANESTHESIA POST OP EVALUATION ---
Anesthesia Post Eval Post Anesthesia Eval Vitals: Last Vital Signs Temp 36.5 C 11/06/24 16:54 Pulse 105 H 11/06/24 16:54 Resp 18 11/06/24 16:54 BP 123/70 11/06/24 16:54 Pulse Ox 97 11/06/24 16:54 O2 Flow Rate 2 11/06/24 16:54 CV Function Including HR & BP: Stable Pain Control: Satisfactory Nausea & Vomiting: Negative Mental Status: Baseline Respiratory Status: Airway Patent Hydration Status: Satisfactory Anesthesia Complications: None
--- NOTE | 2024-11-06 17:05 | XRAY Report ---
PROCEDURE: XR Hip w/Pelvis 1V LT INDICATIONS: post operative imaging TECHNIQUE: AP pelvis with lateral view of the left hip. COMPARISON: Left hip radiographs 11/05/2024 FINDINGS: Bones: Postsurgical changes from interval left hip hemiarthroplasty. Hardware components are in expe cted position. Heterotopic ossifications again seen lateral to the left hip and pelvic bones are norm ally aligned. Soft tissues: Postsurgical changes are seen in the soft tissues surrounding the hip. IMPRESSION: Expected immediate postoperative appearance of a left hip hemiarthroplasty. Reviewed by: Tray Kowalski MD on 11/06/2024 5:04 PM PST Approved by: Tray Kowalski MD on 11/06/2024 5:04 PM PST Station ID: [id number]
[2024-11-06] MEDS: NS W/20 MEQ KCL 1,000 ML IV SCH (17:51)
[2024-11-06] MEDS: ceFAZolin (2G) 2 GM in SODIUM CHLORIDE 0.9% MINIBAG 100 ML IV SCH (17:52)
[2024-11-06] MEDS: ACETAMINOPHEN 500 MG TABLET PO SCH (21:06)
[2024-11-06] MEDS: ASPIRIN EC 81 MG TABLET PO SCH (21:06)
[2024-11-06] MEDS: DOCUSATE SODIUM 100 MG CAPSULE PO SCH (21:06)
[2024-11-07 04:59] LABS: BASOPHILS % (AUTO) 0.2 %; EOSINOPHILS # (AUTO) 0.1 10^3/uL (0.0-0.7); EOSINOPHILS % (AUTO) 0.7 %; HCT - HEMATOCRIT 31.8 % (42.0-52.0); HGB - HEMOGLOBIN 10.2 g/dL (14.0-18.0); LYMPHOCYTES # (AUTO) 0.8 10^3/uL (1.5-3.5); MEAN CORPUSCULAR HEMOGLOBIN 31.5 pg (27.0-31.0); MEAN CORPUSCULAR HGB CONC 32.1 g/dL (32.0-36.0); MEAN CORPUSCULAR VOLUME 98.1 fL (80.0-94.0); MEAN PLATELET VOLUME 9.1 fL (7.4-11.4); MONOCYTES # (AUTO) 0.7 10^3/uL (0.0-1.0); MONOCYTES % (AUTO) 8.1 %; NEUTROPHILS # (AUTO) 6.6 10^3/uL (1.5-6.6); NEUTROPHILS % (AUTO) 80.9 %; PLT - PLATELET COUNT 280 10^3/uL (130-450); RED BLOOD COUNT 3.24 10^6/uL (4.70-6.10); RED CELL DISTRIBUTION WIDTH 12.7 % (12.0-15.0); WHITE BLOOD COUNT 8.1 x10^3/uL (4.8-10.8)
[2024-11-07 05:12] LABS: CALCIUM 8.1 mg/dL (8.5-10.3); CREATININE 0.7 mg/dL (0.6-1.3); POTASSIUM 3.9 mmol/L (3.5-4.5)
[2024-11-07] MEDS: polyethylene glycoL 3350 17 GM PACKET PO SCH (08:05)
[2024-11-07] MEDS ORDERED: ENOXAPARIN 40 MG/0.4 ML SYRINGE SUBQ SCH (09:00)
--- NOTE | 2024-11-07 13:14 | PT Plan of Care ---
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 D/t h/o of CVA affecting LLE/LUE, pt was chairfast at baseline , able to stand and pivot with assistance from or caregiver and required assist for ADLs. Upon PT eval today, pt with difficulty following cueing, A&Ox1-2. Pt found supine in bed with LLE in external rotation, flexion, and abduction . Unable to reposition to neutral d/t pain behaviors and tone. of note, BLE with tone and limited mobility and strength s/p prior CVA. Pt required maxAx2 to dep assist for supine to sit, unable to maintain d/t poor trunk control, limited cue following, and pain behaviors. Pt may benefit from further skilled PT in acute setting to improve activity tolerance and upright endurance. When medically clear, PT rec dc to SNF vs LTC pending progress. Goals Improve bed mobility to: Minimal Assist Improve supine to sit to: Minimal Assist Improve sit to stand to: Moderate Assist Improve pivot transfer ability Moderate Assist to: Improve sit to supine to: Minimal Assist Improve Sitting Balance to: Good Improve Standing Balance to: Fair PT Plan of Care Frequency 1-2x/day Duration Until goals are met Discharge Recommendations [facility]charge Location [facility] Other has wc Transport Needs at [facility]charge [facility]
--- NOTE | 2024-11-07 13:59 | OT Plan of Care ---
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 D/t h/o of CVA affecting LLE/LUE, pt was chairfast at baseline , able to stand and pivot with assistance from or caregiver and required assist for ADLs. Met supine in bed, A&O to self and hospital Date with choices. Disoriented to situation. Pt resting with L hip external rotation requiring therapist assist into neutral. Performed supine to sit EOB DEP Ax2 MIN A upright sitting. Unable to perform SPT OOB at this time 2/2 fatigue and safety. Currently DEP ADLs supine in bed. Overall presents with decreased endurance, activity tolerance and ADL status. Will benefit from cont OT services during acute stay. Rec d/c to SNF at this time. Goals - Activities of Daily Living Improve Upper Extremity Minimal Assist Dressing to: Improve Lower Extremity Minimal Assist Dressing to: Improve Grooming/Hygiene to: Minimal Assist Improve Bathing to: Minimal Assist Improve Toileting to: Minimal Assist Plan Treatment Frequency 1x/day Duration Until discharge -Discharge Recommendations Discharge Location Long Term Facility Transport Needs at Discharge [facility]
--- NOTE | 2024-11-07 16:01 | PROVIDER PROGRESS NOTE ---
Subjective Prog Note Date Prog Note Date: 11/07/24 Prog Note Time: 15:50 Subjective Subjective: Mr. Menjivar is resting well, laying on his back with knees bent. He has not had any severe pain. He does have mild discomfort at the left hip and left knee. He is hesitant to straighten his left leg due to left knee pain. He prefers to keep his left hip in abducted external rotation for comfort. There is no drainage, redness, bleeding, or welling of the incision site. Distal pulses are present and equal to right leg. He denies excessive pain, headache, chest pain, shortness of breath, calf pain. Current Medications Current Medications Current Medications: Current Medications Generic Name Dose Route Start Last Admin Trade Name Freq PRN Reason Stop Dose Admin Acetaminophen 1,000 mg 11/06/24 22:00 11/07/24 14:26 Acetaminophen 500 Mg Tablet PO 1,000 mg TID STARR Administration Aspirin 81 mg 11/06/24 21:00 11/07/24 08:05 Aspirin Ec 81 Mg Tablet PO 81 mg BID STARR Administration Docusate Sodium 100 mg 11/06/24 21:00 11/07/24 08:05 Docusate Sodium 100 Mg Capsule PO 100 mg BID STARR Administration Fentanyl 25 mcg 11/06/24 16:54 Fentanyl 250 Mcg/5 Ml Vial IVP Q2HR PRN Severe Breakthrough pain(8-10) Potassium Chloride/Sodium Chloride 1,000 mls @ 83 mls/hr 11/06/24 17:00 11/07/24 05:38 Normal Saline 0.9% W/20 Meq Kcl IV 83 mls/hr .Q12H3M STARR Administration Ondansetron HCl 4 mg 11/05/24 16:49 Ondansetron Odt 4 Mg Tablet TL Q6HR PRN Nausea / Vomiting Ondansetron HCl 4 mg 11/05/24 16:49 Ondansetron 4 Mg/2 Ml Vial IVP Q6HR PRN Nausea / Vomiting Oxycodone HCl 5 mg 11/05/24 16:49 Oxycodone 5 Mg Tablet PO Q4HR PRN Pain 5 to 7 Polyethylene Glycol 17 gm 11/07/24 09:00 11/07/24 08:05 Polyethylene Glycol 3350 17 Gm Packet PO 17 gm DAILY STARR Administration Sodium Chloride 10 ml 11/05/24 16:49 Sodium Chloride Flush 0.9% 10 Ml Syringe IVP PRN PRN NEEDED PER PROVIDER ORDERS Sodium Chloride 10 ml 11/05/24 17:00 11/07/24 08:05 Sodium Chloride Flush 0.9% 10 Ml Syringe IVP 10 ml 0100,0900,1700 [facility] Administration Objective Vital Signs/Intake & Output Reviewed Vital Signs: Yes Vital Signs: Vital Signs x48h Temp Pulse Resp BP BP Pulse Ox 11/07/24 15:40 37.6 C 123 H 20 114/58 L 95 11/07/24 12:43 37.1 C 110 H 20 123/58 L 93 Intake & Output: Intake & Output 11/04/24 11/05/24 11/06/24 11/07/24 23:59 23:59 23:59 23:59 Intake Total 416 / 416 738 / 738 1378 / 1378 Output Total 875 / 875 1725 / 1725 Balance 416 / 416 -137 / -137 -347 / -347 Weight (kg) 74.5 kg Objective General Appearance: positive No acute distress and Alert Eyes Bilateral: positive Normal inspection and PERRL ENT: positive ENT inspection nml Neck: positive Nml inspection Respiratory: positive Chest non-tender, No respiratory distress and Breath sounds nml; negative Wheezes, Rales or Rhonchi Cardiovascular: positive Regular rate & rhythm and Tachycardia; negative No murmur or No gallop Abdomen: positive Non-tender and Nml bowel sounds Back: positive Nml inspection Skin: positive Color nml Extremities: positive No pedal edema and Other (left leg held in abducted external rotation); negative Calf tenderness Neurologic/Psychiatric: positive CN's nml (2-12), Mood/affect nml and Disoriented to time Lab Results 11/08/24 05:00 11/08/24 05:00 Other Labs: Lab Results x24hrs 11/07/24 Range/Units 04:21 WBC 8.1 (4.8-10.8) x10^3/uL RBC 3.24 L (4.70-6.10) 10^6/uL Hgb 10.2 L (14.0-18.0) g/dL Hct 31.8 L (42.0-52.0) % MCV 98.1 H (80.0-94.0) fL MCH 31.5 H (27.0-31.0) pg MCHC 32.1 (32.0-36.0) g/dL RDW 12.7 (12.0-15.0) % Plt Count 280 (130-450) 10^3/uL MPV 9.1 (7.4-11.4) fL Neut # (Auto) 6.6 (1.5-6.6) 10^3/uL Lymph # (Auto) 0.8 L (1.5-3.5) 10^3/uL [place] # (Auto) 0.7 (0.0-1.0) 10^3/uL Eos # (Auto) 0.1 (0.0-0.7) 10^3/uL Baso # (Auto) 0.0 (0.0-0.1) 10^3/uL Absolute Nucleated RBC 0.00 x10^3/uL Nucleated RBC % 0.0 /100WBC Sodium 141 (135-145) mmol/L Potassium 3.9 (3.5-4.5) mmol/L Chloride 107 (101-111) mmol/L Carbon Dioxide 28 (21-32) mmol/L Anion Gap 6.0 (6-13) BUN 14 (6-20) mg/dL Creatinine 0.7 (0.6-1.3) mg/dL Estimated GFR (MDRD) 108 (>89) Glucose 157 H (74-104) mg/dL Calcium 8.1 L (8.5-10.3) mg/dL Assessment/Plan Problem List (1) Femoral neck fracture: Impression: Post Op day 1. No acute concerns or complications. Will continue daily PT/OT to improve strength, mobility, and stability. discussed with ortho today. Posterior hip precautions. PT and OT are recommending SNF. Family prefers [facility], social work is pursuing. Qualifiers: Encounter type: initial encounter Laterality: left (2) Fall from slip, trip, or stumble: Impression: PT/OT recommend discharge to SNF for rehabilitation, unable to discharge home due to safety and stability. Qualifiers: Encounter type: initial encounter Qualified Code(s): W01.0XXA - Fall on same level from slipping, tripping and stumbling without subsequent striking against object, initial encounter (3) Hypothyroidism, unspecified: Impression: Last PCP visit note reviewed (10/31/24). Had been on meds in the past, now is not. Dr Agrawal had requested repeat TSH. Will draw this in AM. 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 He is on atorvastatin and ASA 81mg at home. I will restart these medicines. I have spent 38 minutes in the care of this patient today. This includes time [id number], review and ordering of diagnostic imaging and laboratory studies and consultation with other providers. Monitoring the patient's signs symptoms, evaluation of medication effectiveness and patient's response to treatment.
--- NOTE | 2024-11-07 19:02 | POST OP PROGRESS NOTE ---
Subjective General Admit Date: 11/05/24 Procedure Date: 06/02/24 Post Op Days: 158 Procedure Performed: Left hip hemiarthroplasty Other Other Information/Narrative: Patient sitting semirecumbent in bed, alert He denies chest pain, nausea, emesis and vomiting Dow remains in place He worked with physical therapy today however he had pain about the left hip. Ortho Surgical Progress Note Problem List Problem List: 83-year-old male who is postoperative day 1 from left hip hemiarthroplasty by Dr. Stewart at [facility] on 11/06/2024. He is recovering well with adequate pain control and has worked with physical therapy who recommend discharge to snf facility. Plan: - DVT prophylaxis with 81 mg of aspirin twice daily for 6 weeks, SCDs in hospital - Physical and occupational therapy evaluation and assessment for discharge likely to snf facility - Pain control with scheduled tylenol and oxycodone and IV fentanyl as needed - Weight bearing as tolerated with front wheeled walker at all times - Posterior hip precautions - no internal rotation or adduction of hip - Follow up with orthopedic clinic in 2 weeks from discharge - Mepilex dressing to remain in place until follow up unless saturated. [place] to be removed at orthopedic surgeon discretion - Bowel regimen while in patient - Dysphagia diet, IV fluids to be discontinued when tolerating oral diet without nausea and emesis - Appreciate comanaged care and expertise of internal medicine team in management of medical comorbidities - Social work consulted for discharge planning likely to [facility] Review of Systems Status of ROS: See HPI Exam Exam Well-developed, well-nourished, 83-year-old male, no acute distress Alert and oriented, comfortable in bed Mepilex dressing dry and intact to left hip Neurovascular intact to left lower extremity and femoral and sciatic nerve distribution
[2024-11-07] MEDS: ATORVASTATIN 10 MG TABLET PO SCH (21:04)
[2024-11-08 06:01] LABS: BASOPHILS % (AUTO) 0.4 %; EOSINOPHILS # (AUTO) 0.2 10^3/uL (0.0-0.7); EOSINOPHILS % (AUTO) 2.2 %; HCT - HEMATOCRIT 27.5 % (42.0-52.0); LYMPHOCYTES # (AUTO) 0.8 10^3/uL (1.5-3.5); LYMPHOCYTES % (AUTO) 9.8 %; MEAN CORPUSCULAR HGB CONC 32.7 g/dL (32.0-36.0); MEAN CORPUSCULAR VOLUME 97.9 fL (80.0-94.0); MEAN PLATELET VOLUME 9.1 fL (7.4-11.4); MONOCYTES # (AUTO) 0.7 10^3/uL (0.0-1.0); MONOCYTES % (AUTO) 7.8 %; NEUTROPHILS # (AUTO) 6.7 10^3/uL (1.5-6.6); NEUTROPHILS % (AUTO) 79.6 %; PLT - PLATELET COUNT 246 10^3/uL (130-450); RED BLOOD COUNT 2.81 10^6/uL (4.70-6.10); RED CELL DISTRIBUTION WIDTH 12.8 % (12.0-15.0); WHITE BLOOD COUNT 8.4 x10^3/uL (4.8-10.8)
[2024-11-08 06:16] LABS: CALCIUM 7.7 mg/dL (8.5-10.3); CREATININE 0.7 mg/dL (0.6-1.3); POTASSIUM 3.8 mmol/L (3.5-4.5)
[2024-11-08] MEDS: oxyCODONE 5 MG TABLET PO PRN (08:17)
[2024-11-08] MEDS ORDERED: ASPIRIN CHEW 81 MG TABLET PO SCH (09:00)
[2024-11-08] MEDS: CHOLECALCIFEROL 25 MCG TABLET PO SCH (09:33)
[2024-11-08] MEDS: CALCIUM CARBONATE CHEW 500 MG TABLET PO SCH (09:33)
--- NOTE | 2024-11-08 12:53 | Discharge Summary ---
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 Menjivar is an 83-year-old male with history of CVA and osteoporosis who presents today with left hip fracture. He is alert, cooperative, in good spirits, sitting in a wheelchair with his Zahra and director supplier quality Tanesha present. He reports "sliding" out of his chair 2 days ago and landing on his left side. He was assisted back into his wheelchair by EMS but denied transport to ED due to not feeling any pain at the time. He states he hit his head on the seat of his wheelchair, but "not enough to matter". His and director supplier quality are both surprised by this as he had previously denied head injury. All of them deny syncope or near syncope, vertigo, or loss of consciousness. He was able to move immediately after the fall but was unable to stand on his own. He denies chest pain, shortness of breath, congestion, recent viral illness, nausea, vomiting, diarrhea, numbness or tingling, saddle anesthesia, new or different urinary or fecal incontinence or retention. He reports initially not having any pain, but starting having left hip pain last night (11/04/24) which was not helped by OTC acetaminophen and ibuprofen. The worst pain was at 4am today which prevented him from sleeping. They presented to urgent care this morning due to the pain and a left hip fracture was seen on XR. They are here in the ED for orthopedic consult and to discuss surgery. His only complaint at this time is mild-moderate left hip pain. He previously had a stroke in March 2024 and just returned home 2 weeks ago from rehab long term. He reports returning to baseline after the stroke with no residual deficits, however his and director supplier quality note left hand edema, decreased function, and purple skin discoloration. Mr. Menjivar maintains that these hand symptoms were present prior to his stroke and did not worsen or change after the stroke. He is able to stand and walk 2-3 steps without assistance, can stand and transfer. He feeds himself, bathes with minimal assistance once getting into shower/tub, and has urinary incontinence but is able to notify his director supplier quality when he needs to urinate so he can get to the urinal. He does not use a catheter. He denies residual numbness or tingling. He reports his hearing and vision are both "good", he does wear corrective lenses. His and director supplier quality state he takes Atorvastatin for cholesterol, low dose Aspirin due to the prior stroke, and daily vitamins (vitamin D3, AREDS 2, multivitamin). He denies prior heart attacks or heart conditions. He has had his tonsils removed at age 3, a right shoulder rotator cuff repair many years ago, and a hernia repair many years. His PCP is Dr. Agrawal, he most recently saw him last (11/01/24). He denies smoking history and any illicit drug use. He reports "occasional" alcohol, about 1 glass of wine a week or less. He denies ever having a period in his life in which he was a heavy or daily drinker. He currently lives at home with his Zahra. He has a director supplier quality, Tanesha, who is there during the day but not at night. She is there every day of the week. She helps to manage his medications and medical care, as well as helping with hygiene and transfers. There are 2 steps inside the house to go from the main room to the bedroom, but he has been sleeping in the main room to avoid these. He is able to walk these stairs without assistance, his director supplier quality will stand behind him in case support is needed. CONSULTS | PROCEDURES Consultations: Orthopedic surgery Procedures: Left hip hemiarthroplasty Left lower extremity CT: Mildly displaced and impacted subcapital fracture of the left femoral neck, moderate to large left hip effusion, constipation Left hip x-ray: Mildly displaced subcapital fracture of the left hip Left knee x-ray nondisplaced fracture anterior medial femoral condyle Left hip x-ray, postop: Expected immediate postoperative appearance of the left hip hemiarthroplasty. HOSPITAL COURSE Hospital Course: 1) Femoral neck fracture Will continue daily PT/OT to improve strength, mobility, and stability. PT and OT are recommending SNF. Decision was made to transition to [facility]. Qualifiers: Encounter type: initial encounter Laterality: left (2) Fall from slip, trip, or stumble: Impression: PT/OT recommend discharge to SNF for rehabilitation, unable to discharge home due to safety and stability. Long discussion with his regarding how things have been since his stroke in March 2024. 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 He was used to being in control of everything that was happening. Since his stroke he has not been able to been be in control and is reacted with some degree of anger. He has been a difficult person to be around for the last almost year. His marriage spans the time of 50 years. [place] and his is realizing that they can no longer live in it or care for that home. They have no children and they have no family locally. They have 2 nieces who are DURABLE POWER OF APPRAISER LAND after Mr. Menjivar and his . Mr. Menjivar is currently incapacitated and unable to make either medical or financial decisions as he is not oriented and does not show any insight into his situation. Prior to this admission he was able to manage 3 steps into their bedroom with handrail support he was using his wheelchair to get around the house pulling it around with his feet and transferring semi independently to chairs and toilet. He was not transferring safely as he is somewhat impulsive and would do things like forget to lock the wheelchair prior to transferring. This is likely what led to this injury. He will be returning back to [facility] after this hip fracture. He will have a period of time to clear anesthesia but it is unknown exactly what his end state is. He has an appointment on February 09 with neurology at [facility]. This is approximately 3 months from now and allows him to heal and recover from this hospitalization and procedure. It is clear to his that they will need to leave their home and move into a place where mobility is more easily accomplished and there is not the burden of the care of the large [place]. Patient is resistant to that idea. Discussed with social work and patient will likely need to be declared incapacitated if that is indeed his state at the time. From there this is a legal situation. Jasvir Sweeney's spouse has an appointment with an kaiawhina kura kaupapa maori in November to start to explore these issues. Qualifiers: Encounter type: initial encounter Qualified Code(s): W01.0XXA - Fall on same level from slipping, tripping and stumbling without subsequent striking against object, initial encounter (3) Hypothyroidism, unspecified: Last PCP visit note reviewed (10/31/24). Had been on meds in the past, now is not. Dr Agrawal had requested repeat TSH. TSH is 4.02. no need to restart synthroid. 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 He is on atorvastatin and ASA 81mg at home. He should remain on ASA 81mg BID for 6 weeks post hip replacement per ortho recommendations, then would recommend de escalation for life to 81 mg. ALLERGIES Allergies Allergy/AdvReac Type Severity Reaction Status Date / Time amoxicillin Allergy Unknown Rash Verified 11/05/24 11:26 Penicillins Allergy Unknown Rash Verified 11/05/24 11:26 MEDICATIONS Ambulatory Orders Medication Instructions Recorded Confirmed Permanent Disabled Placard #1 ea 10/31/24 11/05/24 acetaminophen 325 mg tablet 975 mg (3 x 325 mg) PO TID #90 tabs 11/08/24 aspirin 81 mg tablet,delayed 81 mg PO BID #60 tabs 11/08/24 release atorvastatin 20 mg tablet (Lipitor) 20 mg PO QPM #90 tabs 11/08/24 11/05/24 bisacodyl 10 mg rectal suppository 10 mg ND DAILY PRN Constipation 11/08/24 #12 ea calcium carbonate 500 mg (2.5 x 200 mg calcium (500 11/08/24 mg)) PO BID #60 tabs cholecalciferol (vitamin D3) 25 50 mcg (2 x 25 mcg (1,000 unit)) 11/08/24 mcg (1,000 unit) tablet PO DAILY #30 tabs docusate sodium 100 mg capsule 100 mg PO BID #60 caps 11/08/24 ferrous sulfate 325 mg (65 mg 325 mg PO DAILYWM #30 tabs 11/08/24 iron) tablet oxycodone 5 mg tablet 5 mg PO Q4HR PRN Pain 5 to 7 #30 11/08/24 tabs polyethylene glycol 3350 17 gram 17 g PO DAILY #30 ea 11/08/24 oral powder packet vit A 7,160 unit-vit C 113 mg-vit 1 tab PO BID #60 tabs 11/08/24 11/05/24 [id number]-lutein 0.5 mg tablet (Ocular Vitamins) PHYSICAL EXAM AT DISCHARGE Physical Exam Other/Comments: General Appearance: positive No acute distress and Alert Eyes Bilateral: positive Normal inspection and PERRL ENT: positive ENT inspection nml Neck: positive Nml inspection Respiratory: positive Chest non-tender, No respiratory distress and Breath sounds nml; negative Wheezes, Rales or Rhonchi Cardiovascular: positive Regular rate & rhythm and Tachycardia; negative No murmur or No gallop Abdomen: positive Non-tender and Nml bowel sounds Back: positive Nml inspection Skin: positive Color nml Extremities: positive No pedal edema and Other (left leg held in abducted external rotation. Incisional dressing is clean and dry. ); negative Calf tenderness Neurologic/Psychiatric: positive CN's nml (2-12), Mood/affect nml and Disoriented to time LABS 11/09/24 05:36 11/09/24 05:36 QUALITY (Female Hip Fx Only) Was patient sent home on osteoporosis medication?: Yes FOLLOW UP Follow Up: ortho 2 weeks PCP post SNF dc as scheduled TIME SPENT Time Spent in Discharge (Minutes): 45 Discharge Plan Discharge Patient Disposition: [address] [facility] DC/Xfer Condition: Stable Prescriptions: New acetaminophen 325 mg Tablet 975 mg PO TID Qty: 90 0RF polyethylene glycol 3350 17 gram Powder In Packet 17 g PO DAILY Qty: 30 0RF aspirin 81 mg Tablet,Delayed Release (Dr/Ec) 81 mg PO BID Qty: 60 0RF bisacodyl 10 mg Suppository 10 mg ND DAILY PRN (Reason: Constipation) Qty: 12 0RF ferrous sulfate 325 mg (65 mg iron) Tablet 325 mg PO DAILYWM Qty: 30 0RF calcium carbonate 200 mg calcium (500 mg) Tablet,Chewable 500 mg PO BID Qty: 60 0RF docusate sodium 100 mg Capsule 100 mg PO BID Qty: 60 0RF oxycodone 5 mg Tablet 5 mg PO Q4HR PRN (Reason: Pain 5 to 7) Qty: 30 0RF cholecalciferol (vitamin D3) 25 mcg (1,000 unit) Tablet 50 mcg PO DAILY Qty: 30 0RF Continued atorvastatin [Lipitor] 20 mg tablet 20 mg PO QPM Qty: 90 3RF Ocular Vitamins 7,160 unit- 113 mg-0.5 mg tablet 1 tab PO BID Qty: 60 0RF (DME) Permanent Disabled [facility] See Rx Instructions .ROUTE .MEDSUPPLY Qty: 1 0RF Rx Instructions: As directed Discontinued acetaminophen [8 Hour Pain Reliever] 650 mg tablet extended release 650 mg PO Q4-5H PRN (Reason: pain 1-4) cholecalciferol (vitamin D3) [Vitamin D3] 25 mcg (1,000 unit) capsule 25 mcg PO DAILY aspirin [Aspirin Childrens] 81 mg tablet,chewable 81 mg PO DAILY vitamin B complex Tablet 1 tab PO QDAY Centrum Complete 18-400 mg-mcg tablet 1 tab PO QDAY ibuprofen 200 mg tablet 200 mg PO Q6H PRN (Reason: pain) Activity Restrictions: posterior hip precautions Activity Restrictions/Additional Instructions: SURGICAL PROCEDURE: Left Hip Hemiarthroplasty Surgeon: Dr Stewart Date: 11/06/24 ACTIVITY INSTRUCTIONS - You are weight bearing as tolerated to the left lower extremity with a front wheeled walker at all times. We encourage active movement of the toes every hour while awake to prevent stiffness. - Avoid crossing your legs and rotating your toes inward. Avoid bending the knee forwards past 90 degrees - You must be cleared by your orthopedic provider before operating a vehicle. DRESSING CARE - You have a waterproof Mepilex dressing in place. Leave the dressing in place until your follow up in the orthopedic clinic. There are gerson in place that will be removed at your follow up visit at the discretion of your surgeon. - If you notice fever, chills, redness, excessive drainage or bleeding, a sharp increase in pain that persists after taking pain medication, pain in your calf muscles, chest pain or trouble breathing please unwrap the dressing and investigate. Then call the office with findings for further guidance. If it is after regular clinic hours, please seek care in the emergency department. - In the rare case of any severe chest pain and trouble breathing, seek immediate care, do not delay for a call to the clinic. - You may shower with the dressing in place. If the dressing becomes saturated please call our office for further guidance. POST-OPERATIVE INSTRUCTIONS - Use ice to the affected extremity for 15 minutes increments as needed - Follow up with the orthopedic clinic in 2 weeks. Call our office at [phone] with any concerns MEDICATIONS - Take three pills of 325 mg Tylenol (acetaminophen) every 8 hours regardless of pain in a scheduled manner. Do not exceed 3000 mg of Tylenol (from ALL sources, including over the counter combination products) in a 24-hour period due to risk of liver injury. - Take one pill of 5 mg oxycodone by mouth every 4-6 hours as needed for break through pain stronger than 7 out of 10 on a pain scale. Take this for severe pain 1 hour after taking the scheduled Tylenol and ibuprofen. - Take 200 mg of Colace by mouth every 12 hours for constipation. Narcotic medications such as oxycodone may increase your risk of constipation after surgery. - Take 4 mg of Zofran by mouth every 6 hours as needed for uncontrolled nausea or vomiting. If you have persistent nausea and vomiting call our office or seek care in the emergency department. - Take one pill of 81 mg of aspirin two times daily 12 hours apart for 6 weeks for blood clot prevention. Diet: Regular Health Concerns: You are an 83-year-old male who had a stroke in March of this past year. You had been home from [facility] for about 10 days when it was discovered that you had a hip fracture. You have been falling a lot at home and things seem to be unsafe. You came into the hospital and had repair of your hip fracture. To assist you in healing and recovery from your hip fracture we are putting you on calcium supplements, vitamin D supplements, and iron. To assist with your pain after hip fracture we are asking that you take Tylenol [id number] and you can use oxycodone as needed. We are sending [facility] to [facility] to get stronger and safer so that you can hopefully transition back to your home environment. Care Plan Goals: Return to living at home with your is your caregiver Assessment: Left femoral neck fracture treated with hemiarthroplasty of the left hip. Print Language: Kiswahili Patient Instructions: Surgery Anesthesia After Stand Alone Forms: SNF Discharge Follow-up Care: Lenny Agrawal MD [Primary Care Provider] -
--- NOTE | 2024-11-08 13:09 | POST OP PROGRESS NOTE ---
Subjective General Admit Date: 11/05/24 Procedure Date: 11/06/24 Post Op Days: 2 Procedure Performed: Left hip hemiarthroplasty Other Other Information/Narrative: Alert, sitting semi recumbent in bed, eating lunch He has pain about the left hip only and is sitting in a position of hip flexion and external rotation He denies chest pain, dyspnea, nausea and emesis Pain controlled with current regimen of pain medications Ortho Surgical Progress Note Problem List Problem List: 83-year-old male who is postoperative day 2 from left hip hemiarthroplasty by Dr. Stewart at [facility] on 11/06/2024. He is recovering well with adequate pain control. He refused physical therapy today but has been accepted at SNF for anticipated discharge tomorrow 11/09/24 per medicine team. This patient was seen and evaluated by myself and Dr Stewart today. Plan: - DVT prophylaxis with 81 mg of aspirin twice daily for 6 weeks, SCDs in hospital - Physical and occupational therapy evaluation and assessment for discharge likely to retirement facility - Pain control with scheduled tylenol and oxycodone as needed - Weight bearing as tolerated with front wheeled walker at all times - Posterior hip precautions - no internal rotation or adduction of hip - Follow up with orthopedic clinic in 2 weeks from discharge - Mepilex dressing to remain in place until follow up unless saturated. Erin to be removed at orthopedic surgeon discretion at orthopedic clinic - Bowel regimen while in patient - Dysphagia diet, IV fluids to be discontinued when tolerating oral diet without nausea and emesis - Appreciate comanaged care and expertise of internal medicine team in management of medical comorbidities - Social work consulted for discharge planning likely to [facility] Orthopedic surgery will sign off for now. Please contact the orthopedic team with any questions or concerns. Review of Systems Status of ROS: See HPI Exam Exam Well-developed, well-nourished, 83-year-old male, no acute distress Alert and oriented, comfortable in bed Mepilex dressing dry and intact to left hip, no significant hematoma about the dressing Neurovascular intact to left lower extremity and femoral and sciatic nerve distribution
--- NOTE | 2024-11-08 13:10 | PROVIDER PROGRESS NOTE ---
Subjective Prog Note Date Prog Note Date: 11/08/24 Subjective Subjective: Tanesha at bedside. He is getting ready to eat lunch. His pain is controlled. Denies chest pain or palpitations. Current Medications Current Medications Current Medications: Current Medications Generic Name Dose Route Start Last Admin Trade Name Freq PRN Reason Stop Dose Admin Acetaminophen 1,000 mg 11/06/24 22:00 11/08/24 05:06 Acetaminophen 500 Mg Tablet PO 1,000 mg TID STARR Administration Aspirin 81 mg 11/06/24 21:00 11/08/24 08:17 Aspirin Ec 81 Mg Tablet PO 81 mg BID STARR Administration Atorvastatin Calcium 20 mg 11/07/24 21:00 11/07/24 21:04 Atorvastatin 10 Mg Tablet PO 20 mg QPM STARR Administration Calcium Carbonate/Glycine 500 mg 11/08/24 09:00 11/08/24 09:33 Calcium Carbonate Chew 500 Mg Tablet PO 500 mg BID STARR Administration Cholecalciferol 50 mcg 11/08/24 09:00 11/08/24 09:33 Cholecalciferol 25 Mcg Tablet PO 50 mcg DAILY STARR Administration Docusate Sodium 100 mg 11/06/24 21:00 11/08/24 08:17 Docusate Sodium 100 Mg Capsule PO 100 mg BID STARR Administration Fentanyl 25 mcg 11/06/24 16:54 Fentanyl 250 Mcg/5 Ml Vial IVP Q2HR PRN Severe Breakthrough pain(8-10) Potassium Chloride/Sodium Chloride 1,000 mls @ 83 mls/hr 11/06/24 17:00 11/08/24 05:29 Normal Saline 0.9% W/20 Meq Kcl IV Infused .Q12H3M STARR Infusion Ondansetron HCl 4 mg 11/05/24 16:49 Ondansetron Odt 4 Mg Tablet TL Q6HR PRN Nausea / Vomiting Ondansetron HCl 4 mg 11/05/24 16:49 Ondansetron 4 Mg/2 Ml Vial IVP Q6HR PRN Nausea / Vomiting Oxycodone HCl 5 mg 11/05/24 16:49 11/08/24 08:17 Oxycodone 5 Mg Tablet PO 5 mg Q4HR PRN Administration Pain 5 to 7 Polyethylene Glycol 17 gm 11/07/24 09:00 11/08/24 08:16 Polyethylene Glycol 3350 17 Gm Packet PO 17 gm DAILY STARR Administration Sodium Chloride 10 ml 11/05/24 16:49 Sodium Chloride Flush 0.9% 10 Ml Syringe IVP PRN PRN NEEDED PER PROVIDER ORDERS Sodium Chloride 10 ml 11/05/24 17:00 11/08/24 08:17 Sodium Chloride Flush 0.9% 10 Ml Syringe IVP 10 ml 0100,0900,1700 STARR Administration Objective Vital Signs/Intake & Output Reviewed Vital Signs: Yes Vital Signs: Vital Signs x48h Temp Pulse Pulse Resp BP Pulse Ox O2 Flow Rate 11/08/24 12:26 36.8 C 106 H 21 101/53 L 95 11/08/24 08:07 37.2 C 102 H 20 102/50 L 92 0 Intake & Output: Intake & Output 11/05/24 11/06/24 11/07/24 11/08/24 23:59 23:59 23:59 23:59 Intake Total 416 / 416 738 / 738 3162 / 3162 846 / 846 Output Total 875 / 875 1925 / 1925 500 / 500 Balance 416 / 416 -137 / -137 1237 / 1237 346 / 346 Weight (kg) 74.5 kg Objective General Appearance: positive No acute distress and Alert Eyes Bilateral: positive Normal inspection and PERRL ENT: positive ENT inspection nml Neck: positive Nml inspection Respiratory: positive Chest non-tender, No respiratory distress and Breath sounds nml; negative Wheezes, Rales or Rhonchi Cardiovascular: positive Regular rate & rhythm and Tachycardia; negative No murmur or No gallop Abdomen: positive Non-tender and Nml bowel sounds Back: positive Nml inspection Skin: positive Color nml Extremities: positive No pedal edema and Other (left leg held in abducted external rotation. Incisional dressing is clean and dry. ); negative Calf tenderness Neurologic/Psychiatric: positive CN's nml (2-12), Mood/affect nml and Disoriented to time Lab Results 11/08/24 05:00 11/08/24 05:00 Other Labs: Lab Results x24hrs 11/08/24 Range/Units 05:00 WBC 8.4 (4.8-10.8) x10^3/uL RBC 2.81 L (4.70-6.10) 10^6/uL Hgb 9.0 L (14.0-18.0) g/dL Hct 27.5 L (42.0-52.0) % MCV 97.9 H (80.0-94.0) fL MCH 32.0 H (27.0-31.0) pg MCHC 32.7 (32.0-36.0) g/dL RDW 12.8 (12.0-15.0) % Plt Count 246 (130-450) 10^3/uL MPV 9.1 (7.4-11.4) fL Neut # (Auto) 6.7 H (1.5-6.6) 10^3/uL Lymph # (Auto) 0.8 L (1.5-3.5) 10^3/uL [place] # (Auto) 0.7 (0.0-1.0) 10^3/uL Eos # (Auto) 0.2 (0.0-0.7) 10^3/uL Baso # (Auto) 0.0 (0.0-0.1) 10^3/uL Absolute Nucleated RBC 0.00 x10^3/uL Nucleated RBC % 0.0 /100WBC Sodium 141 (135-145) mmol/L Potassium 3.8 (3.5-4.5) mmol/L Chloride 112 H (101-111) mmol/L Carbon Dioxide 25 (21-32) mmol/L Anion Gap 4.0 L (6-13) BUN 13 (6-20) mg/dL Creatinine 0.7 (0.6-1.3) mg/dL Estimated GFR (MDRD) 108 (>89) Glucose 121 H (74-104) mg/dL Calcium 7.7 L (8.5-10.3) mg/dL TSH 4.02 (0.34-5.60) uIU/mL Assessment/Plan Problem List (1) Femoral neck fracture: Impression: Post Op day 2. No acute concerns or complications. Will continue daily PT/OT to improve strength, mobility, and stability. discussed with ortho today. Dr Stewart agrees with discharge. PT and OT are recommending SNF. Decision was made to transition to [facility] tomorrow. Qualifiers: Encounter type: initial encounter Laterality: left (2) Fall from slip, trip, or stumble: Impression: PT/OT recommend discharge to SNF for rehabilitation, unable to discharge home due to safety and stability.Long discussion with his today regarding how things have been since his stroke in March 2024. 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 He was used to being in control of everything that was happening. Since his stroke he has not been able to been be in control and is reacted with some degree of anger. He has been a difficult person to be around for the last almost year. His marriage spans the time of illness 50 years. He and his built her dream home [place] the [place] and his is realizing that they can no longer live in it or care for that home. They have no children and they have no family locally. They have 2 nieces who are DURABLE POWER OF DRY HOUSE WORKER after Mr. Menjivar and his . Mr. Menjivar is currently incapacitated and unable to make either medical or financial decisions as he is not oriented and does not show any insight into his situation. Prior to this admission he was able to manage 3 steps into their bedroom with handrail support he was using his wheelchair to get around the house pulling it around with his feet and transferring semi independently to chairs and toilet. He was not transferring safely as he is somewhat impulsive and would do things like forget to lock the wheelchair prior to transferring. This is likely what led to this injury. He will be returning back to care home rehab after this hip fracture. He will have a period of time to clear anesthesia but it is unknown exactly what his end state is. He has an appointment on February 09 with neurology at [facility]. This is approximately 3 months from now and allows him to heal and recover from this hospitalization and procedure. It is clear to his that they will need to leave their home and move into a place where mobility is more easily accomplished and there is not the burden of the care of the large [place]. Patient is resistant to that idea. Discussed with social work and patient will likely need to be declared incapacitated if that is indeed his state at the time. From there this is a legal situation. ZahraJasvir's spouse has an appointment with an environmental attorney in November to start to explore these issues. Qualifiers: Encounter type: initial encounter Qualified Code(s): W01.0XXA - Fall on same level from slipping, tripping and stumbling without subsequent striking against object, initial encounter (3) Hypothyroidism, unspecified: Impression: Last PCP visit note reviewed (10/31/24). Had been on meds in the past, now is not. Dr Agrawal had requested repeat TSH. TSH is 4.02. no need to restart synthroid. 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 He is on atorvastatin and ASA 81mg at home. He should remain on ASA 81mg BID for 6 weeks post hip replacement per ortho recommendations, then would recommend de escalation for life to 81 mg. I have spent 38 minutes in the care of this patient today. This includes time [id number], review and ordering of diagnostic imaging and laboratory studies and consultation with other providers. Monitoring the patient's signs symptoms, evaluation of medication effectiveness and patient's response to treatment.
[2024-11-08] MEDS ORDERED: BISACODYL 10 MG SUPP PR PRN (20:33)
[2024-11-08] MEDS: ACETAMINOPHEN 325 MG TABLET PO SCH (21:25)
[2024-11-08] MEDS: SALINE ENEMA 133 ML BOTTLE RC ONE (21:25)
[2024-11-09 06:04] LABS: BASOPHILS % (AUTO) 0.3 %; EOSINOPHILS # (AUTO) 0.3 10^3/uL (0.0-0.7); EOSINOPHILS % (AUTO) 3.8 %; HCT - HEMATOCRIT 27.4 % (42.0-52.0); LYMPHOCYTES % (AUTO) 11.2 %; MEAN CORPUSCULAR HEMOGLOBIN 31.8 pg (27.0-31.0); MEAN CORPUSCULAR HGB CONC 32.8 g/dL (32.0-36.0); MEAN CORPUSCULAR VOLUME 96.8 fL (80.0-94.0); MEAN PLATELET VOLUME 8.9 fL (7.4-11.4); MONOCYTES # (AUTO) 0.5 10^3/uL (0.0-1.0); MONOCYTES % (AUTO) 6.2 %; NEUTROPHILS # (AUTO) 6.8 10^3/uL (1.5-6.6); NEUTROPHILS % (AUTO) 78.3 %; PLT - PLATELET COUNT 271 10^3/uL (130-450); RED BLOOD COUNT 2.83 10^6/uL (4.70-6.10); RED CELL DISTRIBUTION WIDTH 12.7 % (12.0-15.0); WHITE BLOOD COUNT 8.7 x10^3/uL (4.8-10.8)
[2024-11-09 06:24] LABS: CALCIUM 7.7 mg/dL (8.5-10.3); CREATININE 0.7 mg/dL (0.6-1.3); POTASSIUM 3.6 mmol/L (3.5-4.5)
[2024-11-09] MEDS: FERROUS SULFATE 325 MG TABLET PO SCH (08:06)
[2024-11-09 09:03] VITALS: BP 113/65; TEMP 99; O2SAT 98
== END 2024-11-09 09:40 | DRG 522 ==
LOC: ED 11:11 → MS2 11:11
PROVIDERS: ADMIT Nurse Practitioner Acute Care; ATTEND Nurse Practitioner Acute Care
PROC: HEMIHIP (2024-11-06 12:00)
DX: R32 Unspecified urinary incontinence; Z99.3 Dependence on wheelchair; I69.354 Hemiplegia and hemiparesis following cerebral infarction affecting left non-dominant side; Z86.73 Personal history of transient ischemic attack (TIA), and cerebral infarction without residual deficits; S72.012A Unspecified intracapsular fracture of left femur, initial encounter for closed fracture; M16.12 Unilateral primary osteoarthritis, left hip; S72.432A Displaced fracture of medial condyle of left femur, initial encounter for closed fracture; I69.392 Facial weakness following cerebral infarction; Z86.39 Personal history of other endocrine, nutritional and metabolic disease; Z79.82 Long term (current) use of aspirin; Z79.899 Other long term (current) drug therapy; Z91.81 History of falling; W05.0XXA Fall from non-moving wheelchair, initial encounter; M81.0 Age-related osteoporosis without current pathological fracture

== ENCOUNTER 2025-02-08 13:35 | Observation (INO) ==
--- NOTE | 2025-02-08 13:52 | ED Physician Documentation ---
History of Present Illness Stated complaint Stated Complaint: CHOKING Chief complaint Chief Complaint: Resp History obtained from History obtained from: Patient and EMS Additonal information Additional information: The patient comes to the emergency department chief complaint of choking episode at his memory care facility. He had been down in the cafeteria eating when he suddenly choked. He began coughing hard and then Developed altered level of consciousness with decreased responsiveness. However, he did not completely lose consciousness. Medics state that when they arrived, the patient was slow to respond but was awake. Nobody had noticed any seizure-like activity or any other neurologic deficit specifically. Medics report that once in their rig, the patient quickly recovered. They did note oxygen saturation in the 70s and so they put the patient on supplemental oxygen, But they never could get a good reading on the patient. However, he did improve quite a bit clinically on the oxygen as well. The patient is at mental baseline now. He has no complaints whatsoever. He does not remember exactly what he ate for lunch but does not think it was any sort of tough meat. No further coughing. No other complaints at this time. Meds/Allgy Home Medications Ambulatory Orders Medication Instructions Recorded Confirmed Permanent Disabled Placard #1 ea 10/31/24 11/05/24 acetaminophen 325 mg tablet 975 mg (3 x 325 mg) PO TID #90 tabs 11/08/24 aspirin 81 mg tablet,delayed 81 mg PO BID #60 tabs release atorvastatin 20 mg tablet (Lipitor) 20 mg PO QPM #90 t abs 11/08/24 11/05/24 bisacodyl 10 mg rectal suppository 10 mg VT DAILY PRN Constipation 11/08/24 #12 ea calcium carbonate 500 mg (2.5 x 200 mg calcium (500 11/08/24 mg)) PO BID #60 tabs cholecalciferol (vitamin D3) 25 50 mcg (2 x 25 mcg (1, 000 unit)) 11/08/24 mcg (1,000 unit) tablet PO DAILY #30 tabs docusate sodium 100 mg capsule 100 mg PO BID #60 caps 11/08/24 ferrous sulfate 325 mg (65 mg 325 mg PO DAILYWM #30 ta bs 11/08/24 iron) tablet oxycodone 5 mg tablet 5 mg PO Q4HR PRN Pain 5 to 7 #30 11/08/24 tabs polyethylene glycol 3350 17 gram 17 g PO DAILY #30 ea 11/08/24 oral powder packet vit A 7,160 unit-vit C 113 mg-vit 1 tab PO BID #60 tab s 11/08/24 11/05/24 L-tuet-xokxnj-lutein 0.5 mg tablet (Ocular Vitamins) bisacodyl 10 mg rectal suppository 10 mg VT QDAY PRN 0 01/22/25 01/22/25 (Dulcolax (bisacodyl)) folic acid 400 mcg tablet 400 mcg PO QDAY 01/22/2503/13 ibuprofen 200 mg tablet 200 mg PO Q6H PRN pain 01/2201/22/25 ondansetron HCl 4 mg tablet 4 mg PO Q6H PRN nausea and vomiting 01/22/25 01/22/25 polyethylene glycol 3350 17 gram 17 g PO ONCE PRN 0503/1301/22/25 oral powder packet (Miralax) vit B complx-folic ac-C-biotin 1 tab PO QDAY 01/22/25 01/22/25 Allergies Allergies Allergy/AdvReac Type Severity Reaction Status Date / Time amoxicillin Allergy Unknown Rash Verified 11/05/24 11:26 Penicillins Allergy Unknown Rash Verified 11/05/24 11:26 PFSH Active Problems All Active Problems (Updated 02/08/25 @ 15:07 by Lavinia Zee MD) Hypoxia (Acute) Acute aspiration pneumonitis (Acute) Personal history of COVID-19 (Acute) Personal history of transient ischemic attack (TIA), and cerebral infarction without residual deficits (Acute) Presence of left artificial hip joint (Acute) Hypothyroidism, unspecified (Acute) Localized edema (Acute) Mild protein-calorie malnutrition (Acute) Difficulty in walking, not elsewhere classified (Acute) Need for assistance with personal care (Acute) Cognitive communication deficit (Acute) Hemiplegia and hemiparesis following cerebral infarction affecting left non-dominant side (Acute) Fall from slip, trip, or stumble (Acute) Femoral neck fracture (Acute) Left hip pain (Acute) Fall on same level, unspecified, initial encounter (Acute) Hypotension due to drugs (Acute) Essential (primary) hypertension (Acute) Hemiparesis of left side of face (Acute) Left hemiparesis (Acute) Hyperlipidemia, unspecified (Acute) Medical History Medical History (Updated 02/08/25 @ 15:07 by Lavinia Zee MD) 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 Father Heart attack Sister Family history unknown Social History Social History Smoking Status: Never smoker Second hand tobacco smoke exposure: No Do you dip or chew tobacco?: No Do you vape?: No Relationship: Level: Assisted Do you feel safe in your home environment?: Yes Suffered physical, verbal, emotional, or financial abuse?: No History of Abuse: No ETOH Use: Wine Frequency: Occasional Number of Amount/day: 1 POLST Patient has POLST: No Exam Constitutional normal general appearance and no apparent distress Alert, very well-appearing. HENMT normocephalic, head/scalp atraumatic, external nose normal and oral mucous membranes normal Eyes EOMs intact bilaterally Neck/C-Spine visual inspection normal and supple Respiratory breath sounds equal bilaterally, normal respiratory effort and clear to auscultation bilaterally Patient speaks easily in full sentences. Respirations nonlabored. No wheezing or stridor. Occasional brief cough. Cardiovascular normal heart rate noted, regular rhythm noted and no edema Gastrointestinal abdomen normal to inspection, abdomen soft to palpation, nontender to palpation and nondistended Genitourinary no CVA tenderness Extremities normal to inspection Neurology Alert, grossly intact Psychiatry mental status grossly normal Skin skin color normal Results Vitals Vitals: Oxygen O2 Source Room air PD Medical Decision Making ED course Complexity details: reviewed old records, reviewed results, re-evaluated patient, considered differential, d/w patient and d/w family ED course: The patient actually looked very good, but had fairly poor oxygen saturation with a good waveform. We did initially put him on up to 6 L with nasal cannula, and his sats only came up to the low 80s. He was ultimately put on nonrebreather mask with improvement to the mid to upper 80s. The patient appeared clinically the same regardless. We backed him down to a an oxy mask at roughly 60% O2 and his ABG showed a pO2 of 55.5 and an O2 sats of 89%. His chest x-ray showed what appeared to be minimal infiltrates versus atelectasis in especially the right lung base. I have ordered clindamycin for the patient and have also ordered a CT angiogram of the chest to be sure that the patient does not have any other reason such as PE for his hypoxia. Patient will be signed o ut to my oncoming colleague, pending these results. I anticipate he will likely be admitted for aspiration pneumonitis. is present and is aware of the current plan. Discharge Plan Discharge Condition: Serious Clinical Impression: Acute aspiration pneumonitis, Hypoxia Prescriptions: No Action acetaminophen 325 mg Tablet 975 mg PO TID Qty: 90 0RF polyethylene glycol 3350 17 gram Powder In Packet 17 g PO DAILY Qty: 30 0RF aspirin 81 mg Tablet,Delayed Release (Dr/Ec) 81 mg PO BID Qty: 60 0RF bisacodyl 10 mg Suppository 10 mg VT DAILY PRN (Reason: Constipation) Qty: 12 0RF ferrous sulfate 325 mg (65 mg iron) Tablet 325 mg PO DAILYWM Qty: 30 0RF calcium carbonate 200 mg calcium (500 mg) Tablet,Chewable 500 mg PO BID Qty: 60 0RF docusate sodium 100 mg Capsule 100 mg PO BID Qty: 60 0RF oxycodone 5 mg Tablet 5 mg PO Q4HR PRN (Reason: Pain 5 to 7) Qty: 30 0RF cholecalciferol (vitamin D3) 25 mcg (1,000 unit) Tablet 50 mcg PO DAILY Qty: 30 0RF atorvastatin [Lipitor] 20 mg tablet 20 mg PO QPM Qty: 90 3RF Ocular Vitamins 7,160 unit- 113 mg-0.5 mg tablet 1 tab PO BID Qty: 60 0RF (DME) Permanent Disabled Placard Misc See Rx Instructions .ROUTE .MEDSUPPLY Qty: 1 0RF Rx Instructions: As directed bisacodyl [Dulcolax (bisacodyl)] 10 mg suppository 10 mg VT QDAY PRN ibuprofen 200 mg tablet 200 mg PO Q6H PRN (Reason: pain) ondansetron HCl 4 mg tablet 4 mg PO Q6H PRN (Reason: nausea and vomiting) polyethylene glycol 3350 [Miralax] 17 gram powder in packet 17 g PO ONCE PRN Rx Instructions: for no BM x 3 days. Mix in 8 oz of liquid, hold for loose stools folic acid 400 mcg tablet 400 mcg PO QDAY vit B complx-folic ac-C-biotin 1 tab PO QDAY Print Language: Bots[place] Stand Alone Forms: PCP List
--- OUTSIDE RECORDS SUMMARY | 2025-02-08 13:58 | EXTERNAL MEDICAL SUMMARY RPT | Continuity of Care Document ---
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 [employer] [employer] 2024-11-12 08:28 Pain in left hip [facility] 2024-11-12 08:28 Fracture of unspecif ied part of neck of left femur, initial encounter for closed fracture [facility] 2024-11-12 08:28 Fracture of unspecif ied part of neck of unspecified femur, initial encounter for closed fracture [facility] 2024-11-12 08:28 Unspecified intracap sular fracture of left femur, initial encounter for closed fracture [facility] 2024-11-12 08:28 Fall on same level f rom slipping, tripping and stumbling without subsequent striking against object, initial encounter [facility] 2024-11-13 10:14 Encounter for observ ation for other suspected diseases and conditions ruled out [facility] 2024-11-14 16:43 Hypothyroidism, unspecified [facility] [employer] 2024-11-14 16:43 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 [employer] 2024-11-14 16:43 Pain in left hip [facility] 2024-11-14 16:43 Altered mental status, unspecif ied [facility] 2024-11-14 16:43 Slurred speech [facility] 2024-11-14 16:43 Fracture of unspecif ied part of neck of left femur, initial encounter for closed fracture [facility] 2024-11-14 16:43 Fracture of unspecif ied part of neck of unspecified femur, initial encounter for closed fracture [facility] 2024-11-14 16:43 Unspecified intracap sular fracture of left femur, initial encounter for closed fracture [facility] 2024-11-14 16:43 Fall on same level f rom slipping, tripping and stumbling without subsequent striking against object, [facility]:43 [facility] for [facility] to jonas [facility]24-[facility]-14 16:44 Fracture of unspecif ied part of neck of left femur, initial encounter for closed fracture [employer] [facility] 2024-11-14 16:44 Fracture of unspecif ied part of neck of unspecified femur, initial encounter for closed fracture [employer] 2024-11-14 16:44 Fall on same level f rom slipping, tripping and stumbling without subsequent striking against object, [facility] 2024-11-19 08:47 [facility] 2024-11-22 10:32 Presence of left artificial hip joint [employer] [facility] 2024-11-22 11:02 Presence of left artificial hip joint [employer] [facility] 2024-11-22 11:31 Presence of left artificial hip joint [employer] 2024-11-23 00:03 Presence of left artificial hip joint [employer] [facility] 2024-11-27 07:42 Hypothyroidism, unspecified [facility] 2024-11-27 07:42 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 [employer] 2024-11-27 07:42 [facility] 2024-11-27 07:42 Fracture of unspecif ied part of neck of left femur, initial encounter for closed fracture [facility] 2024-11-27 07:42 Fracture of unspecif ied part of neck of unspecified femur, initial encounter for closed fracture [employer] [facility] 2024-11-27 07:42 Unspecified intracap sular fracture of left femur, initial encounter for closed fracture [employer] [facility] 2024-11-27 07:42 Fall on same level f rom slipping, tripping and stumbling without subsequent striking against object, initial encounter [facility] 2024-12-18 16:17 Pain in left hip [employer] [facility] 2024-12-18 16:17 [facility] 2024-12-19 15:10 Pain in left hip ramírez [facility] 2024-12-19 15:10 [facility] 11:00 Pain in left hip ramírez [facility] 2024-12-20 11:00 Pain in left knee [facility] 11:02 Pain in left hip ramírez [facility] 2024-12-20 11:02 Pain in left knee [facility] 2024-12-20 11:56 [facility] 2024-12-20 11:56 Pain in left knee [facility] 2024-12-21 00:02 Pain in left hip ramírez [facility] 2024-12-21 00:02 Pain in left knee [facility]21 16:24 Presence of left artificial hip joint [facility] 2025-01-22 10:35 Presence of left artificial hip joint [facility] 2025-01-22 11:48 Fracture of unspecif ied part of neck of unspecified femur, initial encounter for closed fracture [facility] 2025-01-22 11:48 Presence of left artificial hip joint [facility] 2025-01-23 00:03 Presence of left artificial hip joint [facility] 2025-02-05 12:07 Hypothyroidism, unspecified [facility] 2025-02-05 12:07 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 2025-02-05 12:07 Pain in left hip [facility] 2025-02-05 12:07 Altered mental status, unspecif ied [facility] 2025-02-05 12:07 Slurred speech [facility] 2025-02-05 12:07 Fracture of unspecif ied part of neck of left femur, [facility] 2025-02-05 12:07 Fracture of unspecif ied part of neck of unspecified femur, [facility] 2025-02-05 12:07 Unspecified intracap sular fracture of left femur, [facility] 2025-02-05 12:07 Fall on same level f rom slipping, tripping and stumbling without subsequent striking against object, initial encounter [employer] 2025-02-05 12:07 Presence of left [facility] hip [facility]25-[facility]05 12:08 Fracture of unspecif ied part of neck of left femur, initial encounter for closed [facility]25-02-05 12:08 Fracture of unspecif ied part of neck of unspecified femur, initial encounter for closed [facility] 2025-[facility]-05 12:08 Fall on same level f rom slipping, tripping and stumbling without subsequent striking against object, initial encounter [employer] [facility] Social History date description facility
[2025-02-08 14:03] LABS: BASOPHILS % (AUTO) 0.4 %; EOSINOPHILS # (AUTO) 0.1 10^3/uL (0.0-0.7); EOSINOPHILS % (AUTO) 2.9 %; HCT - HEMATOCRIT 42.4 % (42.0-52.0); LYMPHOCYTES # (AUTO) 1.5 10^3/uL (1.5-3.5); LYMPHOCYTES % (AUTO) 31.3 %; MEAN CORPUSCULAR HEMOGLOBIN 31.1 pg (27.0-31.0); MEAN CORPUSCULAR VOLUME 94.2 fL (80.0-94.0); MEAN PLATELET VOLUME 9.1 fL (7.4-11.4); MONOCYTES # (AUTO) 0.2 10^3/uL (0.0-1.0); MONOCYTES % (AUTO) 4.7 %; NEUTROPHILS # (AUTO) 2.9 10^3/uL (1.5-6.6); NEUTROPHILS % (AUTO) 60.3 %; PLT - PLATELET COUNT 290 10^3/uL (130-450); WHITE BLOOD COUNT 4.9 x10^3/uL (4.8-10.8)
[2025-02-08 14:17] LABS: ALBUMIN 4.2 g/dL (3.2-5.5); ALBUMIN/GLOBULIN RATIO 1.4 (1.0-2.2); BILIRUBIN,TOTAL 0.5 mg/dL (0.2-1.0); CALCIUM 9.2 mg/dL (8.5-10.3); CREATININE 1.1 mg/dL (0.6-1.3); POTASSIUM 3.5 mmol/L (3.5-4.5); TOTAL PROTEIN 7.1 g/dL (6.4-8.9)
[2025-02-08 14:52] LABS: ABG BASE EXCESS 5.6 mmol/L (-2.0-3.0); ABG HCO3 29.4 mmol/L (22.0-26.0); ABG OXYGEN SATURATION 89 % (95-98); ABG PCO2 39 mmHg (34-45); ABG PH 7.48 (7.35-7.45); ABG PO2 56 mmHg (83-108); ABG TCO2 30.6 mmol/L (21.0-29.0); ALLEN TEST POSITIVE
[2025-02-08] MEDS ORDERED: iohexoL-300 100 ML VIAL ONE (15:04)
[2025-02-08] MEDS: CLINDAMYCIN 900 MG/50 ML 900 MG/50 ML BAG IV ONE (15:47)
[2025-02-08] MEDS: iohexoL-300 100 ML VIAL IVP ONE (15:58)
--- NOTE | 2025-02-08 17:06 | XRAY Report ---
PROCEDURE: XR Chest 1V INDICATIONS: hypoxia after choking TECHNIQUE: One view of the chest was acquired. COMPARISON: 04/13/2024. FINDINGS: Surgical changes and devices: None. Lungs and pleura: Airspace opacity and left infrahilar region is seen concerning for left lower lobe infiltrate. Blunting of left costophrenic angle is also noted. No pneumothorax. Right lung is clear. Mediastinum: Mediastinal contours appear normal. Heart size is normal. Bones and chest wall: No suspicious bony lesions. Overlying soft tissues appear unremarkable. IMPRESSION: Finding is concerning for left infrahilar infiltrate and small left pleural effusion. No pneumothorax. Reviewed by: Lewis Lovell MD on 02/08/2025 5:04 PM PDT Approved by: Lewis Lovell MD on 02/08/2025 5:04 PM PDT Station ID: [id number]
--- NOTE | 2025-02-08 17:16 | CT Report ---
PROCEDURE: CT Angio Chest INDICATIONS: hypoxia after choking CONTRAST: omni 300, 100 TECHNIQUE: After the administration of intravenous contrast, 2 mm axial images were acquired from the pulmonary apices to the posterior costophrenic angles during the arterial phase. In addition, 1 mm lung kernel and 5 mm soft tissue kernel reconstructions were performed. 3-dimensional coronal oblique maximum intensity projection (MIP) reformats, 8 mm axial MIP, and 5 mm coronal and sagittal MPR reformats were then performed through the thorax. For radiation dose reduction, the following was used: automated exposure control, adjustment of mA and/or kV according to patient size. COMPARISON: None. FINDINGS: Image quality: Excellent. Large vessels: No filling defects within the opacified pulmonary arteries, accounting for motion and contrast timing. No evidence of acute aortic syndrome or aortic aneurysm. Lungs and pleura: There is filling debris within the dependent airways of the lower lobes, left greater than right. Associated atelectasis and hypoattenuating regions present as well. Mediastinum: Heart size is normal. No pericardial effusion. No large vessel abnormality. No mediastinal adenopathy by size criteria. Diffuse esophageal wall thickening. Chest wall and lower neck: Thyroid is unremarkable. No axillary or supraclavicular adenopathy by size. Bones: No aggressive osseous abnormality. Upper Abdomen: Unremarkable. IMPRESSION: No pulmonary embolus. Debris within the dependent airways, left greater than right, and associated atelectasis with mixed regions of hypoattenuation consistent with aspirate. Diffuse esophageal wall thickening may indicate esophagitis, less likely malignancy given diffuse extent. Consider follow-up with GI referral. Reviewed by: Matthew Leigh MD on 02/08/2025 5:15 PM PDT Approved by: Matthew Leigh MD on 02/08/2025 5:15 PM PDT Station ID: [id number]
--- NOTE | 2025-02-08 17:16 | ED Physician Documentation ---
ED Addendum Addendum Addendum: Signout from Dr. Zee at shift change. Briefly this gentleman was reported to me to have a choking episode was toxic. Chest x-ray demonstrating concern for left infrahilar infiltrate and small left pleural effusion. On signout he was waiting to get a CTA. Plan at signout was to admit after the CTA for likely aspiration pneumonitis. CTPA: Debris within the dependent airways, left greater than right, and associated atelectasis with mixed regions of hypoattenuation consistent with aspirate. Diffuse esophageal wall thickening may indicate esophagitis, less likely malignancy given diffuse extent. Consider follow-up with GI referral. Spoke with Dr. Enma Deleon for observation at 5:24 PM Discharge Plan Discharge Patient Disposition: ED Place in Observation Condition: Serious Clinical Impression: Acute aspiration pneumonitis, Hypoxia Prescriptions: No Action acetaminophen 325 mg Tablet 975 mg PO TID Qty: 90 0RF polyethylene glycol 3350 17 gram Powder In Packet 17 g PO DAILY Qty: 30 0RF aspirin 81 mg Tablet,Delayed Release (Dr/Ec) 81 mg PO BID Qty: 60 0RF bisacodyl 10 mg Suppository 10 mg MS DAILY PRN (Reason: Constipation) Qty: 12 0RF ferrous sulfate 325 mg (65 mg iron) Tablet 325 mg PO DAILYWM Qty: 30 0RF calcium carbonate 200 mg calcium (500 mg) Tablet,Chewable 500 mg PO BID Qty: 60 0RF docusate sodium 100 mg Capsule 100 mg PO BID Qty: 60 0RF oxycodone 5 mg Tablet 5 mg PO Q4HR PRN (Reason: Pain 5 to 7) Qty: 30 0RF cholecalciferol (vitamin D3) 25 mcg (1,000 unit) Tablet 50 mcg PO DAILY Qty: 30 0RF atorvastatin [Lipitor] 20 mg tablet 20 mg PO QPM Qty: 90 3RF Ocular Vitamins 7,160 unit- 113 mg-0.5 mg tablet 1 tab PO BID Qty: 60 0RF (DME) Permanent Disabled Placard Misc See Rx Instructions .ROUTE .MEDSUPPLY Qty: 1 0RF Rx Instructions: As directed bisacodyl [Dulcolax (bisacodyl)] 10 mg suppository 10 mg MS QDAY PRN ibuprofen 200 mg tablet 200 mg PO Q6H PRN (Reason: pain) ondansetron HCl 4 mg tablet 4 mg PO Q6H PRN (Reason: nausea and vomiting) polyethylene glycol 3350 [Miralax] 17 gram powder in packet 17 g PO ONCE PRN Rx Instructions: for no BM x 3 days. Mix in 8 oz of liquid, hold for loose stools folic acid 400 mcg tablet 400 mcg PO QDAY vit B complx-folic ac-C-biotin 1 tab PO QDAY Print Language: Tanzanian Stand Alone Forms: PCP List
--- NOTE | 2025-02-08 17:49 | HISTORY & PHYSICAL EXAMINATION ---
Chief Complaint Chief Complaint Chief Complaint: Choking History of Present Illness Admitted From Admitted From:: [facility] [place] History Obtained From Records Reviewed: EMR History obtained from: , Zahra at bedside; patient himself History of Present Illness HPI Comment/Other: Patient is a 84-year-old male with a history of a CVA in March 2024 with resultant dysphagia, left-sided weakness who presents after choking incident at his assisted living facility. His is visiting him, and notes that they were feeding him some very dry pork. He is post to be on a minced and moist diet, as well as thickened liquids. She noticed that he was choking, and immediately alerted those around him. Per ER and EMS records, patient had a oxygen saturation of 70% and so they placed him on supplemental oxygen. Initially, he was unresponsive, however, with the oxygen on, he was back to his baseline mentation. His is at bedside and states that after his stroke, he had resultant dysphagia. He initially had a PEG tube placed, where he was getting all of his nutrition. He has been working extensively with speech therapy. He has slowly advanced his diet to the now minced and moist diet he supposed to be taking. He is no longer on any supplemental nutrition, and his PEG tube was removed a few months ago. This is the first time that he has had a choking episode like this. At this time, he is back at his baseline mentation which is alert and oriented x 1-2. He is able to answer some questions with small phrases in 1-2 word sentences. He denies any fevers, chills, cough. He states that he feels like he is back to his normal self. In the ER, he was saturating 79% on room air, and was placed on 8 L of oxygen via facemask. He is normotensive with blood pressure of 112/49, heart rate was 86, respiratory rate was 24, and he was afebrile. Initial chest x-ray demonstrated left infrahilar infiltrate and small left pleural effusion, no pneumothorax. CTA shows debris within the dependent airways, left greater than right and associated atelectasis with mixed areas of hypoattenuation consistent with aspirate, as well as diffuse esophageal thickening, possible esophagitis. He was admitted for acute hypoxic respiratory failure, aspiration pneumonitis. Meds/Allgy Home Medications Ambulatory Orders Medication Instructions Recorded Confirmed Permanent Disabled Placard #1 ea 10/31/24 11/05/24 acetaminophen 325 mg tablet 975 mg (3 x 325 mg) PO TID #90 tabs 11/08/24 aspirin 81 mg tablet,delayed 81 mg PO BID #60 tabs release atorvastatin 20 mg tablet (Lipitor) 20 mg PO QPM #90 t abs 11/08/24 11/05/24 bisacodyl 10 mg rectal suppository 10 mg AR DAILY PRN Constipation 11/08/24 #12 ea calcium carbonate 500 mg (2.5 x 200 mg calcium (500 11/08/24 mg)) PO BID #60 tabs cholecalciferol (vitamin D3) 25 50 mcg (2 x 25 mcg (1, 000 unit)) 11/08/24 mcg (1,000 unit) tablet PO DAILY #30 tabs docusate sodium 100 mg capsule 100 mg PO BID #60 caps 11/08/24 ferrous sulfate 325 mg (65 mg 325 mg PO DAILYWM #30 ta bs 11/08/24 iron) tablet oxycodone 5 mg tablet 5 mg PO Q4HR PRN Pain 5 to 7 #30 11/08/24 tabs polyethylene glycol 3350 17 gram 17 g PO DAILY #30 ea 11/08/24 oral powder packet vit A 7,160 unit-vit C 113 mg-vit 1 tab PO BID #60 tab s 11/08/24 11/05/24 G-azeo-hiogzq-lutein 0.5 mg tablet (Ocular Vitamins) bisacodyl 10 mg rectal suppository 10 mg AR QDAY PRN 0 01/22/25 01/22/25 (Dulcolax (bisacodyl)) folic acid 400 mcg tablet 400 mcg PO QDAY 01/22/2503/13 ibuprofen 200 mg tablet 200 mg PO Q6H PRN pain 01/2201/22/25 ondansetron HCl 4 mg tablet 4 mg PO Q6H PRN nausea and vomiting 01/22/25 01/22/25 polyethylene glycol 3350 17 gram 17 g PO ONCE PRN 05/0 03/1301/22/25 oral powder packet (Miralax) vit B complx-folic ac-C-biotin 1 tab PO QDAY 01/22/25 01/22/25 Allergies Allergies Allergy/AdvReac Type Severity Reaction Status Date / Time amoxicillin Allergy Unknown Rash Verified 02/08/25 16:00 Penicillins Allergy Unknown Rash Verified 02/08/25 16:00 [facility] Active Problems All Active Problems Acute hypoxic respiratory failure (Acute) Hypoxia (Acute) Acute aspiration pneumonitis (Acute) Personal history of COVID-19 (Acute) Personal history of transient ischemic attack (TIA), and cerebral infarction without residual deficits (Acute) Presence of left artificial hip joint (Acute) Hypothyroidism, unspecified (Acute) Localized edema (Acute) Mild protein-calorie malnutrition (Acute) Difficulty in walking, not elsewhere classified (Acute) Need for assistance with personal care (Acute) Cognitive communication deficit (Acute) Hemiplegia and hemiparesis following cerebral infarction affecting left non- dominant side (Acute) Fall from slip, trip, or stumble (Acute) Femoral neck fracture (Acute) Left hip pain (Acute) Fall on same level, unspecified, initial encounter (Acute) Hypotension due to drugs (Acute) Essential (primary) hypertension (Acute) Hemiparesis of left side of face (Acute) Left hemiparesis (Acute) Hyperlipidemia, unspecified (Acute) Medical History Medical History 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 Low back pain, unspecified Unspecified osteoarthritis, unspecified site Breast development in males Unilateral primary osteoarthritis, unspecified knee COVID-19 Surgical History Surgical History Gastrojejunal tube present Family History Family History Mother No problems noted. Father Heart attack Sister Family history unknown Social History Social History Smoking Status: Never smoker Second hand tobacco smoke exposure: No Do you dip or chew tobacco?: No Do you vape?: No Relationship: Level: Assisted Do you feel safe in your home environment?: Yes Suffered physical, verbal, emotional, or financial abuse?: No History of Abuse: No ETOH Use: Wine Frequency: Occasional Number of Amount/day: 1 POLST Patient has POLST: Yes POLST Status: Full Code Review of Systems Constitutional Reports: Weakness (s/p stroke); Denies: Fatigue, Fever, Chills or Malaise Eyes Denies: Pain, Irritation, Amaurosis, Blurry vision or Floaters Ears, nose, mouth, and throat Reports: Throat pain; Denies: Ear pain, Ear discharge, Hearing loss, Nasal congestion, Neck pain or Throat swelling Cardiovascular Denies: Irregular heart rate, chest pain, palpitations, edema or shortness of breath with exertion Respiratory Reports: Cough; Denies: Shortness of breath, Sputum production, Change in phlegm color, Wheezing, Apnea, SOB at rest or SOB with exertion Gastrointestinal Denies: Abdominal pain, Abdominal distention, Nausea, Vomiting or Poor appetite Genitourinary Reports: Incontinence; Denies: Painful urination, Flank pain or Urinary frequency Musculoskeletal Denies: Back pain, Neck pain, Extremity pain, Extremity swelling or Joint pain Integumentary/Breast Denies: Rash, Itching, Dryness, Redness, Skin pain or Skin tenderness Neurological Denies: Headache, General weakness, Focal weakness or Weakness in extremities Psychiatric Denies: Depression, Anxiety, Mood swings, Panic attacks or Change in sleep pattern Endocrine Denies: Excessive urination, Excessive thirst, Polyphagia or Fatigue Hematologic/Lymphatic Denies: Anemia, Easy bruising or Petechiae Allergic/Immunologic Denies: Hives, Throat swelling, Tongue swelling, Facial swelling or Wheezing Prior Level of Functionality: Mostly chair bound, able to stand, walk 2-3 steps or stairs, and stand to transfer. Dresses and bathes with some assistance. Exam Exam Vital Signs: Vital Signs x48h Temp Pulse Resp BP Pulse Ox O2 Flow Rate 02/08/25 17:00 97 142/74 H 96 8 02/08/25 15:49 93 23 142/74 H 94 8 02/08/25 14:24 4 02/08/25 14:12 88 L 4 02/08/25 14:06 97.7 F 86 24 112/49 L 79 L Constitutional normal general appearance, no apparent distress, average body habitus, limitations noted (physical limitations) (wheelchair bound) and alert HENMT normocephalic, head/scalp atraumatic and hearing grossly normal bilaterally Eyes PERRL and EOMs intact bilaterally Neck/C-Spine visual inspection normal Lymph no lymphadenopathy noted Chest inspection of chest normal Respiratory breath sounds equal bilaterally, normal respiratory effort and clear to auscultation bilaterally No crackles, wheezes, rales noted. Cardiovascular normal heart rate noted, regular rhythm noted, no murmur, no JVD, peripheral pulses 2+ throughout and no edema Gastrointestinal abdomen soft to palpation Surgical scar where PEG tube was. No erythema, drainage Genitourinary no CVA tenderness Extremities normal to inspection, normal to palpation and no tenderness Neurology hospital nurse liaison II-XII intact Left hand with some chronic contracture noted, hospital nurse liaison strength is decreased. Left arm with 4-5 strength to flexion and extension. Bilateral lower extremities 4-5 in strength. Some expressive aphasia noted, but patient is mostly able to answer yes or no questions Psychiatry cooperative Skin skin color normal Conclusion/Plan Problem List (1) Acute hypoxic respiratory failure: Plan: Patient currently requiring 8 L after aspiration event as outlined above. CTA does show some debris, left worse than right. Some esophagitis is also noted likely from this aspiration event. Will continue oral clindamycin at this time as there is a chance that this may develop into full aspiration pneumonia. Will reassess tomorrow about continuation of this. Continue to wean oxygen down as tolerated. (2) Acute aspiration pneumonitis: Plan: Continue clindamycin as stated above. (3) Hemiplegia and hemiparesis following cerebral infarction affecting left non- dominant side: Plan: Patient with CVA in 04/11 with resultant dysphagia, necessitating PEG tube temporarily, now removed. Also has left-sided weakness. Continue aspirin and statin. Continue minced and moist diet, pured diet, thickened liquids. Lab Results Lab results reviewed: Yes 02/08/25 13:58 02/08/25 13:58 Diagnostic Imaging Results Diagnostic Imaging Results: positive Final report reviewed Core Measures Anticipated LOS I expect patient to be DC'd or transferred within 96 hours.: Yes Issues Hospital Issues and Management Plan: None anticipated. DVT/VTE - Prophylaxis VTE/DVT Device ordered at admit?: No Not Ordered - Medical Reason: Not indicated VTE/DVT Prophylaxis med ordered at admit?: Yes
[2025-02-08] MEDS ORDERED: SODIUM CHLORIDE FLUSH 0.9% 10 ML SYRINGE IVP PRN (19:07)
[2025-02-08] MEDS ORDERED: FOLIC ACID 400 MCG PO SCH (19:07)
[2025-02-08] MEDS: CLINDAMYCIN 150 MG CAPSULE PO SCH (21:31)
[2025-02-08] MEDS: ATORVASTATIN 10 MG TABLET PO SCH (21:31)
[2025-02-08] MEDS: ASPIRIN EC 81 MG TABLET PO SCH (21:31)
[2025-02-08] MEDS: [UNRECOGNIZED DRUG - OTHER] PO SCH (22:13)
[2025-02-09] MEDS: SODIUM CHLORIDE FLUSH 0.9% 10 ML SYRINGE IVP SCH (00:10)
[2025-02-09] MEDS: SODIUM CHLORIDE 0.9% 500 ML IV ONE (05:53)
[2025-02-09 06:21] LABS: HGB - HEMOGLOBIN 12.3 g/dL (14.0-18.0); MEAN CORPUSCULAR HEMOGLOBIN 31.3 pg (27.0-31.0); MEAN CORPUSCULAR HGB CONC 33.2 g/dL (32.0-36.0); MEAN CORPUSCULAR VOLUME 94.1 fL (80.0-94.0); MEAN PLATELET VOLUME 9.3 fL (7.4-11.4); RED BLOOD COUNT 3.93 10^6/uL (4.70-6.10); RED CELL DISTRIBUTION WIDTH 13.2 % (12.0-15.0)
[2025-02-09 06:38] LABS: CALCIUM 8.6 mg/dL (8.5-10.3); CREATININE 0.9 mg/dL (0.6-1.3); MAGNESIUM 2.2 mg/dL (1.7-2.3); POTASSIUM 3.6 mmol/L (3.5-4.5)
--- NOTE | 2025-02-09 07:15 | PHARMACY PROGRESS NOTE ---
Best Possible Medication History Admit Date and Time: 02/08/25 1742 Home Medications Medication Instructions Recorded Confirmed Type Permanent Disabled Placard #1 ea 10/31/24 11/05/24 Rx atorvastatin 20 mg tablet (Lipitor) 20 mg PO QPM #90 t abs 11/08/24 02/08/25 Rx bisacodyl 10 mg rectal suppository 10 mg NV DAILY PRN Constipation 11/08/24 02/08/25 Rx #12 ea docusate sodium 100 mg capsule 100 mg PO BID #60 caps 11/08/24 02/08/25 Rx oxycodone 5 mg tablet 5 mg PO Q4HR PRN Pain 5 to 7 #30 11/08/24 02/08/25 Rx tabs vit A 7,160 unit-vit C 113 mg-vit 1 tab PO BID #60 tab s 11/08/24 02/08/25 Rx Q-esoh-xubksf-lutein 0.5 mg tablet (Ocular Vitamins) folic acid 400 mcg tablet 400 mcg PO DAILY 01/22/25 History ibuprofen 200 mg tablet 200 mg PO Q6H PRN pain 01/2202/08/25 History ondansetron HCl 4 mg tablet 4 mg PO Q6H PRN nausea and vomiting 01/22/25 02/08/25 History polyethylene glycol 3350 17 gram 17 g PO ONCE PRN cons tipation 01/22/25 02/08/25 History oral powder packet (Miralax) vit B complx-folic ac-C-biotin 1 tab PO DAILY 01/22/25 02/08/25 History aspirin 81 mg tablet,delayed 81 mg PO DAILY 02/08/25 0 02/08/25 History release cholecalciferol (vitamin D3) 25 25 mcg PO DAILY 02/08/25 History mcg (1,000 unit) tablet multivit-mins no.56-FA 200 mcg-vit 1 tab PO DAILY 01/1802/08/25 History K 1,000 mcg-coQ10 10 mg chew tablet Processed by: Pharmacy Medications reviewed in ED?: Yes Medication History completed: Yes Patient Interview: Pt unable to participate Secondary Source(s): Facility MAR as ONLY source [facility] Statement: As the person ultimately responsible for medication therapy, providers are able to order a medication from an existing home medication list in [facility] via the "Reconcile Routine" prior to Confirmation of that medication by data support analyst. Such practice is discouraged except when the physician, in their clinical judgment, deems that a medical need exists for a medication without regard to previous use.
[2025-02-09] MEDS ORDERED: MULTIVITAMIN W/MINERALS TABLET PO SCH (08:00)
[2025-02-09] MEDS: PRENATAL VITAMIN TABLET PO SCH (08:11)
[2025-02-09] MEDS: SACCHAROMYCES BOULARDII 250 MG CAPSULE PO SCH (08:11)
[2025-02-09] MEDS: FERROUS SULFATE 325 MG TABLET PO SCH (08:11)
[2025-02-09] MEDS: CHOLECALCIFEROL 25 MCG TABLET PO SCH (08:11)
[2025-02-09] MEDS: ENOXAPARIN 40 MG/0.4 ML SYRINGE SUBQ SCH (08:11)
[2025-02-09 08:12] VITALS: BP 107/54; TEMP 98.8; O2SAT 95
--- NOTE | 2025-02-09 09:23 | Discharge Summary ---
"Discharge Summary Admit Date: 02/08/25 Discharge Date: 02/09/25 Discharging Provider: Dr. 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 Patient is now on room air. Acute aspiration pneumonitisconcerned that it may turn into a pneumonia. Patient was significantly hypoxic, and coughing on discharge. Continue 5-day course of clindamycin. I have also sent probiotics as there is a higher chance of C. difficile with clindamycin. Hemiaplasia hemiparesis following cerebral infarction affecting left dominant sidecontinue aspirin and statin at home. HPI History of Present Illness: Patient is a 84-year-old male with a history of a CVA in March 2024 with resultant dysphagia, left-sided weakness who presents after choking incident at his assisted living facility. His is visiting him, and notes that they were feeding him some very dry pork. He is post to be on a minced and moist diet, as well as thickened liquids. She noticed that he was choking, and immediately alerted those around him. Per ER and EMS records, patient had a oxygen saturation of 70% and so they placed him on supplemental oxygen. Initially, he was unresponsive, however, with the oxygen on, he was back to his baseline mentation. His is at bedside and states that after his stroke, he had resultant dysphagia. He initially had a PEG tube placed, where he was getting all of his nutrition. He has been working extensively with speech therapy. He has slowly advanced his diet to the now minced and moist diet he supposed to be taking. He is no longer on any supplemental nutrition, and his PEG tube was removed a few months ago. This is the first time that he has had a choking episode like this. At this time, he is back at his baseline mentation which is alert and oriented x 1-2. He is able to answer some questions with small phrases in 1-2 word sentences. He denies any fevers, chills, cough. He states that he feels like he is back to his normal self. In the ER, he was saturating 79% on room air, and was placed on 8 L of oxygen via facemask. He is normotensive with blood pressure of 112/49, heart rate was 86, respiratory rate was 24, and he was afebrile. Initial chest x-ray demonstrated left infrahilar infiltrate and small left pleural effusion, no pneumothorax. CTA shows debris within the dependent airways, left greater than right and associated atelectasis with mixed areas of hypoattenuation consistent with aspirate, as well as diffuse esophageal thickening, possible esophagitis. He was admitted for acute hypoxic respiratory failure, aspiration pneumonitis. CONSULTS | PROCEDURES Consultations: - Procedures: CT angiogram chest HOSPITAL COURSE Hospital Course: Patient is a 84-year-old male with a history of CVA resulting in dysphagia who presented after an episode of choking at [facility]. He was given dry pork. He supposed to be on a minced and moist diet, with thickened liquids. After this aspiration event, he was hypoxic, requiring as much as 8 L of oxygen. CTA was done, and it did show some dependent debris consistent with aspiration. He was started on clindamycin as he has a penicillin allergy, and cannot use Unasyn. This will be continued for 5-day course, oral clindamycin, as well as a probiotic. He was advised this strictly adhere to his minced and moist diet, with thickened liquids. He was deemed suitable for discharge back to [facility] once he was weaned off oxygen, and he is breathing comfortably now on room air. ALLERGIES Allergies Allergy/AdvReac Type Severity Reaction Status Date / Time amoxicillin Allergy Unknown Rash Verified 02/08/25 16:00 Penicillins Allergy Unknown Rash Verified 02/08/25 16:00 MEDICATIONS Ambulatory Orders Medication Instructions Recorded Confirmed Permanent Disabled Placard #1 ea 10/31/24 11/05/24 atorvastatin 20 mg tablet (Lipitor) 20 mg PO QPM #90 t abs 11/08/24 02/08/25 bisacodyl 10 mg rectal suppository 10 mg IL DAILY PRN Constipation 11/08/24 02/08/25 #12 ea docusate sodium 100 mg capsule 100 mg PO BID #60 caps 11/08/24 02/08/25 oxycodone 5 mg tablet 5 mg PO Q4HR PRN Pain 5 to 7 #30 11/08/24 02/08/25 tabs vit A 7,160 unit-vit C 113 mg-vit 1 tab PO BID #60 tab s 11/08/24 02/08/25 I-ubpi-siqcbt-lutein 0.5 mg tablet (Ocular Vitamins) folic acid 400 mcg tablet 400 mcg PO DAILY 01/22/25 ibuprofen 200 mg tablet 200 mg PO Q6H PRN pain 01/2202/08/25 ondansetron HCl 4 mg tablet 4 mg PO Q6H PRN nausea and vomiting 01/22/25 02/08/25 polyethylene glycol 3350 17 gram 17 g PO ONCE PRN cons tipation 01/22/25 02/08/25 oral powder packet (Miralax) vit B complx-folic ac-C-biotin 1 tab PO DAILY 01/22/25 02/08/25 aspirin 81 mg tablet,delayed 81 mg PO DAILY 02/08/25 0 02/08/25 release cholecalciferol (vitamin D3) 25 25 mcg PO DAILY 02/08/25 mcg (1,000 unit) tablet multivit-mins no.56-FA 200 mcg-vit 1 tab PO DAILY 01/1802/08/25 K 1,000 mcg-coQ10 10 mg chew tablet Saccharomyces boulardii 250 mg 250 mg PO BID 5 days #1 0 caps 02/09/25 capsule clindamycin HCl 300 mg capsule 300 mg PO TID 3 days #9 caps 02/09/25 (Cleocin HCl) PHYSICAL EXAM AT DISCHARGE Vital Signs: Vital Signs x48h Temp Pulse Pulse Resp BP Pulse Ox 02/09/25 08:11 98.8 F 83 18 107/54 L 95 02/09/25 06:40 107/53 L 02/09/25 05:20 98.2 F 88 16 95/47 L 93 General Appearance: positive No acute distress and Alert; negative Anxious Eyes Bilateral: positive Normal inspection, PERRL and EOMI ENT: positive ENT inspection nml, Pharynx nml and No signs of dehydration Neck: positive Nml inspection, Thyroid nml and Trachea midline Respiratory: positive Chest non-tender and No respiratory distress; negative Wheezes, Rales or Rhonchi Cardiovascular: positive Regular rate & rhythm, No murmur and No gallop Peripheral Pulses: positive 2+ Abdomen: positive Non-tender and No distention; negative Guarding, Hepatomegaly or Splenomegaly Back: positive Nml inspection; negative CVA tenderness (R) or CVA tenderness (L) Skin: positive Color nml, No rash, Warm and Dry Extremities: positive Non-tender and No pedal edema Neurologic/Psychiatric: positive Other (Left hand with some chronic contracture noted, 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 Left arm with 4-5 strength to flexion and extension. Bilateral lower extremities 4-5 in strength. Some expressive aphasia noted, but patient is mostly able to answer yes or no questions) LABS 02/09/25 05:39 02/09/25 05:39 DIAGNOSTIC IMAGING Diagnostic Imaging Results: Final report reviewed FOLLOW UP Follow Up: Follow up with PCP on discharge. TIME SPENT Time Spent in Discharge (Minutes): 35 Discharge Plan Discharge Patient Disposition: 62 IRF DC/Xfer Condition: Stable Prescriptions: New clindamycin HCl [Cleocin HCl] 300 mg capsule 300 mg PO TID 3 Days Qty: 9 0RF Saccharomyces boulardii 250 mg capsule 250 mg PO BID 5 Days Qty: 10 0RF Continued bisacodyl 10 mg Suppository 10 mg [place] DAILY PRN (Reason: Constipation) Qty: 12 0RF docusate sodium 100 mg Capsule 100 mg PO BID Qty: 60 0RF oxycodone 5 mg Tablet 5 mg PO Q4HR PRN (Reason: Pain 5 to 7) Qty: 30 0RF atorvastatin [Lipitor] 20 mg tablet 20 mg PO QPM Qty: 90 3RF Ocular Vitamins 7,160 unit- 113 mg-0.5 mg tablet 1 tab PO BID Qty: 60 0RF multivit-min #56-FA-vit K-Q10 200 mcg-1,000 mcg-10 mg tablet,chewable 1 tab PO DAILY aspirin 81 mg Tablet,Delayed Release (Dr/Ec) 81 mg PO DAILY cholecalciferol (vitamin D3) 25 mcg (1,000 unit) Tablet 25 mcg PO DAILY (DME) Permanent Disabled Placard Misc See Rx Instructions .ROUTE .MEDSUPPLY Qty: 1 0RF Rx Instructions: As directed ibuprofen 200 mg tablet 200 mg PO Q6H PRN (Reason: pain) ondansetron HCl 4 mg tablet 4 mg PO Q6H PRN (Reason: nausea and vomiting) polyethylene glycol 3350 [Miralax] 17 gram powder in packet 17 g PO ONCE PRN (Reason: constipation) Rx Instructions: for no BM x 3 days. Mix in 8 oz of liquid, hold for loose stools folic acid 400 mcg tablet 400 mcg PO DAILY vit B complx-folic ac-C-biotin 1 tab PO DAILY Health Concerns: You came in because you choked on your meal. It may have been too dry for you to eat. You were requiring oxygen initially, and this has been weaned off. We are treating you for possible aspiration pneumonia. I sent in 3 more days of antibiotics for you to finish, as well as probiotics to take with it. Please continue to adhere to a minced and moist diet, as well as thickened liquids. We are glad you are feeling better, thank you for allowing us to take care of you. Print Language: Sudanese Stand Alone Forms: PCP List"
[2025-02-09] MEDS: [UNRECOGNIZED DRUG - OTHER] PO SCH (11:20)
== END 2025-02-09 13:05 ==
LOC: MS2 13:35 → ED 13:35 → MS2 18:32
PROVIDERS: ADMIT Internal Medicine; ATTEND Internal Medicine
DX: I69.352 Hemiplegia and hemiparesis following cerebral infarction affecting left dominant side; J96.01 Acute respiratory failure with hypoxia; Z88.0 Allergy status to penicillin; J69.0 Pneumonitis due to inhalation of food and vomit; I10 Essential (primary) hypertension; Z86.16 Personal history of COVID-19; R13.10 Dysphagia, unspecified; I69.391 Dysphagia following cerebral infarction